=== PATIENT | female | born 1935 | race Caucasian/White ===

== ENCOUNTER → 2017-12-24 12:09 | Outpatient (CLI) | payer MEDICARE, OTHER, SELFPAY ==
[2017-12-24 12:38] LABS: Hematocrit 41.5 % (36-46); Hemoglobin 13.5 g/dL (12.0-16.0); Mean Corpuscular HGB Conc 32.7 % (30-36); Mean Corpuscular Hemoglobin 29.6 PG (26-34); Mean Corpuscular Volume 90.5 fL (80-100); Platelet Count 198 X10^3/uL (150-400); Red Blood Cell Count 4.58 X10^6/uL (4.0-5.2); Red Cell Distribution Width 14.7 % (11.6-14.8); White Blood Cell Count 7.3 X10^3/uL (4.5-11.0)
== END ==
PROVIDERS: PCP Family Medicine; Visit Provider Internal Medicine Pulmonary Disease
DX: M35.8 Other specified systemic involvement of connective tissue (principal); J84.89 Other specified interstitial pulmonary diseases
CPT/HCPCS: 36415; 85027

== ENCOUNTER → 2017-12-26 13:39 | Outpatient (CLI) | payer MEDICARE, OTHER, SELFPAY ==
--- NOTE | 2017-12-26 14:27 | DI.RAD.S_ITS ---
This blank DEXA report has been sent in error by the PACS system. The correct and complete report will be forthcoming in 1-2 days. Thank you for your patience and understanding. Dictated by: Lino Drake M.D. on 12/26/2017 at 15:17 Approved by: Lino Drake M.D. on 12/26/2017 at 15:18
== END ==
PROVIDERS: PCP Family Medicine; Visit Provider Family Medicine
DX: M85.88 Other specified disorders of bone density and structure, other site (principal); Z78.0 Asymptomatic menopausal state; E07.9 Disorder of thyroid, unspecified; M06.9 Rheumatoid arthritis, unspecified
CPT/HCPCS: 77080

== ENCOUNTER → 2018-01-29 10:28 | Outpatient (CLI) | payer MEDICARE, OTHER, SELFPAY ==
[2018-01-29 11:39] LABS: Hematocrit 41.2 % (36-46); Hemoglobin 13.7 g/dL (12.0-16.0); Mean Corpuscular HGB Conc 33.3 % (30-36); Mean Corpuscular Hemoglobin 30.1 PG (26-34); Mean Corpuscular Volume 90.2 fL (80-100); Platelet Count 189 X10^3/uL (150-400); Red Blood Cell Count 4.57 X10^6/uL (4.0-5.2); Red Cell Distribution Width 14.5 % (11.6-14.8); White Blood Cell Count 7.1 X10^3/uL (4.5-11.0)
[2018-01-29 13:17] LABS: TSH w/ Reflex to FT4 4.76 uIU/mL (0.47-4.68)
[2018-01-29 14:22] LABS: Free T4, Direct Thyroxine 1.44 ng/dL (0.78-2.19)
== END ==
PROVIDERS: Family Medicine; PCP Family Medicine; Visit Provider Internal Medicine Pulmonary Disease
DX: M35.8 Other specified systemic involvement of connective tissue (principal); J84.89 Other specified interstitial pulmonary diseases; E03.9 Hypothyroidism, unspecified
CPT/HCPCS: 36415; 84439; 84443; 85027

== ENCOUNTER → 2018-03-03 10:26 | Outpatient (CLI) | payer MEDICARE, OTHER, SELFPAY ==
[2018-03-03 11:07] LABS: Add Manual Diff / Slide Review NO; Basophils Percent Auto 0.3 % (0-2); Eosinophils Percent Auto 1.5 % (2-4); Hematocrit 40.4 % (36-46); Hemoglobin 13.5 g/dL (12.0-16.0); Lymphocytes Percent Auto 23.9 % (25-40); Mean Corpuscular HGB Conc 33.5 % (30-36); Mean Corpuscular Hemoglobin 29.8 PG (26-34); Mean Corpuscular Volume 89.1 fL (80-100); Monocytes Percent Auto 9.7 % (3-14); Neutrophils Absolute Auto 4400 /uL (3000-5900); Neutrophils Percent Auto 64.6 % (50-75); Platelet Count 186 X10^3/uL (150-400); Red Blood Cell Count 4.54 X10^6/uL (4.0-5.2); Red Cell Distribution Width 14.4 % (11.6-14.8); White Blood Cell Count 6.9 X10^3/uL (4.5-11.0)
[2018-03-03 12:11] LABS: TSH w/ Reflex to FT4 3.06 uIU/mL (0.47-4.68)
== END ==
PROVIDERS: Family Medicine; PCP Family Medicine; Visit Provider Internal Medicine Pulmonary Disease
DX: M35.8 Other specified systemic involvement of connective tissue (principal); E07.9 Disorder of thyroid, unspecified
CPT/HCPCS: 36415; 84443; 85025

== ENCOUNTER → 2018-03-27 11:10 | Outpatient (CLI) | payer MEDICARE, OTHER, SELFPAY ==
[2018-03-27 12:23] LABS: Hematocrit 41.7 % (36-46); Mean Corpuscular HGB Conc 33.5 % (30-36); Mean Corpuscular Hemoglobin 29.8 PG (26-34); Mean Corpuscular Volume 88.8 fL (80-100); Platelet Count 195 X10^3/uL (150-400); Red Cell Distribution Width 14.5 % (11.6-14.8); White Blood Cell Count 6.7 X10^3/uL (4.5-11.0)
== END ==
PROVIDERS: PCP Family Medicine; Visit Provider Internal Medicine Pulmonary Disease
DX: M35.8 Other specified systemic involvement of connective tissue (principal); J84.89 Other specified interstitial pulmonary diseases
CPT/HCPCS: 36415; 85027

== ENCOUNTER → 2018-04-24 14:46 | Outpatient (CLI) | payer MEDICARE, OTHER, SELFPAY ==
[2018-04-24 15:25] LABS: Hematocrit 42.9 % (36-46); Hemoglobin 13.8 g/dL (12.0-16.0); Mean Corpuscular HGB Conc 32.1 % (30-36); Mean Corpuscular Volume 90.4 fL (80-100); Platelet Count 191 X10^3/uL (150-400); Red Blood Cell Count 4.75 X10^6/uL (4.0-5.2); Red Cell Distribution Width 14.3 % (11.6-14.8); White Blood Cell Count 11.3 X10^3/uL (4.5-11.0)
== END ==
PROVIDERS: Family Provider Family Medicine; PCP Family Medicine; Visit Provider Internal Medicine Pulmonary Disease
DX: J84.89 Other specified interstitial pulmonary diseases (principal); M35.8 Other specified systemic involvement of connective tissue
CPT/HCPCS: 36415; 85027

== ENCOUNTER → 2018-05-28 10:22 | Outpatient (CLI) | payer MEDICARE, OTHER, SELFPAY ==
[2018-05-28 11:09] LABS: Hematocrit 43.3 % (36-46); Hemoglobin 14.3 g/dL (12.0-16.0); Mean Corpuscular Hemoglobin 29.8 PG (26-34); Mean Corpuscular Volume 90.2 fL (80-100); Platelet Count 195 X10^3/uL (150-400); Red Cell Distribution Width 14.9 % (11.6-14.8); White Blood Cell Count 7.4 X10^3/uL (4.5-11.0)
== END ==
PROVIDERS: Family Provider Family Medicine; PCP Family Medicine; Visit Provider Internal Medicine Pulmonary Disease
DX: M35.8 Other specified systemic involvement of connective tissue (principal); J84.89 Other specified interstitial pulmonary diseases
CPT/HCPCS: 36415; 85027

== ENCOUNTER 2018-06-27 09:31 | Observation (INO) | payer MEDICARE, OTHER, SELFPAY ==
[2018-06-27] VITALS (13 sets, daily range): BP systolic 120–162; BP diastolic 62–116; PULSE 53–78; RESP 15–19; TEMP 36.2–36.9; O2SAT 95–100; BMI 30.8
--- NOTE | 2018-06-27 | DI.CT.S_ITS ---
PROCEDURE: CT ANGIO HEAD AND NECK INDICATIONS: Right arm weakness TECHNIQUE: Pre-contrast 4.5 mm thick sections acquired from the foramen magnum to the vertex. After the administration of intravenous contrast, 1 mm thick sections acquired from the aortic arch through the [employer] [place]. Post-contrast 4.5 mm thick sections then re-acquired from the foramen magnum to the vertex. 3-dimensional pnqkzkt-edkrnwqzr-rfnxyouhdm (MIP) and/or volume rendering reformats were acquired of the central intracranial vasculature and neck separately. COMPARISON: [facility], US, THYROID, 09/13/2011, 9:41. [facility], CT, CT HEAD/BRAIN WO CON, 06/27/2018, 9:46. FINDINGS: Image quality: Excellent. BRAIN: CSF spaces: Ventricles are normal in size and shape. Basal cisterns are patent. No extra-axial fluid collections. Brain: No midline shift. No intracranial bleeds or masses. Old, small, lacunar infarct involving the right caudate head/anterior limb internal capsule is redemonstrated. Moderate, diffuse cerebral volume loss. Moderate to severe periventricular and subcortical white matter chronic microvascular ischemic changes. Mitchell-white matter interface appears intact. There is normal contrast enhancement of the dural sinuses. Skull and face: Calvarium and facial bones appear intact, without suspicious lesions. Orbits appear normal. Sinuses: Mucosal thickening is noted in the left maxillary sinus and the right maxillary sinus. The mastoids are clear. HEAD CT ANGIOGRAPHY: Anterior circulation: Intracranial internal carotid arteries are normal in flow. Atherosclerotic calcifications are noted in the cavernous and supraclinoid segments of the internal carotid arteries bilaterally. Atherosclerotic calcification causes mild multi-focal stenoses in the cavernous segments of the internal carotid arteries. Atherosclerotic calcification causes high-grade, short segment stenosis in the supraclinoid segment of the right internal carotid artery and moderate, short segment stenosis in the supraclinoid segment of the left internal carotid artery. The flow within the paired anterior cerebral arteries is normal and symmetric. The flow within the middle cerebral arteries is normal and symmetric. The anterior communicating artery is seen. No aneurysms are seen. Posterior circulation: Atherosclerotic calcification is noted in the V4 segment of the right vertebral artery which causes moderate multifocal stenoses. Flow within the posterior cerebral arteries is normal and symmetric. No aneurysms are seen. NECK CT ANGIOGRAPHY: Carotid system: The great vessels demonstrate a conventional anatomy as they arise from the aortic arch. The origins of the common carotid arteries appear patent. The common carotid arteries demonstrate normal caliber. Left common carotid artery takes a medial course projecting into the retropharyngeal space. Soft and calcified atherosclerotic plaque noted in the origins of the internal carotid arteries bilaterally which causes less than 50% stenosis of the vessels. Posterior circulation: Atherosclerotic calcification noted in the origin of the right internal carotid artery which causes mild stenosis. Atherosclerotic calcification noted in the origin of the left internal carotid artery which causes moderate stenosis. They join to form a normal appearing basilar artery. Soft tissues: Visualized neck soft tissues demonstrate no suspicious abnormalities. Severe, chronic interstitial changes noted in the lung apices. Multiple nodules noted in the thyroid gland which are not significantly changed compared to thyroid ultrasound obtained 09/13/2011. 1.4 cm enhancing mass is noted in the left parotid gland. Bones: No suspicious bony lesions. Spine degenerative disc disease and facet arthropathy. Visualized cervical spine appears normally aligned. IMPRESSION: 1. No acute intracranial disease process. 2. High-grade, atherosclerotic stenosis of the supraclinoid segment of the right internal carotid artery. 3. Moderate, atherosclerotic stenosis of the supraclinoid segment of the right internal carotid artery. 4. Less than 50% stenosis of the origins of the internal carotid arteries. 5. Moderate multifocal atherosclerotic stenoses involving the origin and V4 segment of the left vertebral artery. 6. Mild atherosclerotic stenosis involving the origin of the right vertebral artery. 7. Multinodular thyroid gland not significantly changed in appearance compared to ultrasound obtained 09/13/2011. 8. 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 Differential diagnosis includes benign etiologies such as pleomorphic adenoma or Warthin's tumor as well as malignancy including metastatic disease and mucoepidermoid carcinoma. Any quantitative measurements of stenosis were performed using NASCET criteria. Dictated by: Marcelina Beltrán MD, PhD on 06/27/2018 at 16:05 Approved by: Marcelina Beltrán MD, PhD on 06/27/2018 at 16:27
--- NOTE | 2018-06-27 09:40 | ED.NEUROSD ---
HPI - Neuro Symptoms/Deficit General Chief Complaint: Neuro Symptoms/Deficit Stated Complaint: weakness on rt side Time Seen by Provider: 06/27/18 09:38 Source: patient and family Mode of arrival: wheelchair Limitations: no limitations History of Present Illness HPI Narrative: 82-year-old female with history of AFib, coronary artery disease, pacer presents with stroke-like symptoms upon waking today. She says she went to bed at about 1130 p.m. and awoke this morning at 0830am feeling a bit off. She states she had trouble getting around and when attempting to use her right arm did not seem to work when trying to brush her hair. Furthermore she stumbled when ambulating, but denies feeling dizzy. She denies any vision or speech trouble. She denies any recent injury, fever or chills. She went to bed feeling at her baseline. She has had a TIA in the past. She is outside of any tPA window, BEFAST is positive, LAMS is 2. No stroke activation indicated. Related Data Home Medications Medication Instructions Recorded Confirmed amlodipine 5 mg tablet 5 mg PO DAILY 12/13/17 06/27/18 atorvastatin 20 mg tablet 20 mg PO DAILY 12/13/17 06/27/18 carvedilol 12.5 mg tablet 12.5 mg PO BID 12/13/17 06/27/18 furosemide 20 mg tablet 20 mg PO DAILY 12/13/17 06/27/18 gabapentin 300 mg capsule 300 mg PO DAILY cap 12/13/17 06/27/18 losartan 50 mg tablet 50 mg PO DAILY 12/13/17 06/27/18 mycophenolate mofetil 500 mg tablet 1,000 mg PO BID 12/13/17 06/27/18 nitroglycerin 0.4 mg sublingual 0.4 mg SL Q5-15M PRN 12/13/17 06/27/18 tablet warfarin 4 mg tablet 4 mg PO DAILY 12/13/17 06/27/18 Fish Oil 1 cap PO CONT 06/27/18 06/27/18 Vitamin C 1 tab PO DAILY 06/27/18 06/27/18 cholecalciferol (vitamin D3) 2,000 unit PO DAILY 06/27/18 06/27/18 [Vitamin D3] levothyroxine [Synthroid] 06/27/18 levothyroxine [Synthroid] 50 mcg PO DAILY 06/27/18 06/27/18 multivitamin 1 tab PO DAILY 06/27/18 06/27/18 mycophenolate mofetil [CellCept] 1,000 mg PO BID 06/27/18 06/27/18 potassium chloride 20 meq PO DAILY 06/27/18 06/27/18 prednisone 2.5 mg PO DAILY 06/27/18 06/27/18 Allergies Allergy/AdvReac Type Severity Reaction Status Date / Time adhesive Allergy Mild RASH/BLISTERS Verified 03/14/18 14:57 PAPER/SIKL TAPE [place] Review of Systems Review of Systems All systems reviewed & are unremarkable except as noted in HPI and below Constitutional Denies chills, Denies fever(s), Denies lethargy and Reports weakness Eyes Denies change in vision, Denies eye discharge, Denies irritation and Denies loss of vision ENT Ears, Nose, Mouth, and Throat: Denies change in voice, Denies neck pain, Reports disequilibrium and Denies sore throat Cardiovascular Denies chest pain, Denies irregular heart rhythm, Denies lightheadedness, Denies palpitations, Denies dyspnea, Denies dyspnea on exertion and Denies orthopnea Respiratory Denies cough, Denies dyspnea, Denies dyspnea on exertion and Denies wheezing Gastrointestinal Gastrointestinal: Denies abdominal pain, Denies change in bowel habits, Denies diarrhea, Denies nausea and Denies vomiting Genitourinary Denies hematuria, Denies flank pain, Denies urinary incontinence and Denies urinary urgency Musculoskeletal Denies neck pain Integumentary/Breasts Denies pruritus, Denies erythema, Denies rash and Denies wounds Neurologic Denies confusion, Reports lack of coordination, Reports focal weakness, Denies loss of vision, Reports disequilibrium and Reports weakness Psychiatric Denies anxiety, Denies confusion, Denies depression, Denies homicidal ideation and Denies suicidal ideation Endocrine Denies palpitations Hematologic/Lymphatic Denies easy bruising Allergic/Immunologic Denies wheezing [facility] Medical History 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) CAD (coronary artery disease) (Chronic) TIA (transient ischemic attack) (Resolved) Atrial fibrillation (Chronic) Interstitial lung disease (Chronic) Melanoma (Resolved) Surgical History H/O: section (Resolved) Hx of CABG (Resolved) S/P appendectomy (Resolved) S/P hysterectomy (Resolved) S/P knee replacement (Resolved) Family History: Reviewed 06/27/18 by Nataly Wilson DO Social History marital status: number of children: 2 household members: spouse lives independently: Yes education level: college occupational status: other (retired) Smoking Status: Never smoker alcohol intake: current substance use type: does not use Exam Narrative Exam Narrative: 82-year-old female, pleasant, in mild distress, anxious Initial Vital Signs Initial Vital Signs: Vital Signs Temperature 98.2 F 06/27/18 09:35 Pulse Rate 78 06/27/18 09:35 Respiratory Rate 18 06/27/18 09:35 Blood Pressure 148/87 H 06/27/18 09:35 Pulse Oximetry 100 06/27/18 09:35 Const General: cooperative, well developed, in distress and anxious Nutritional Appearance: well nourished Orientation: alert, awake, oriented x3 and not confused HENMT Head: normocephalic and atraumatic Ears: external ears normal and TM's normal bilaterally Nose: external nose normal and No nasal discharge Face and sinus: sinuses nontender, face symmetric, no sinus tenderness and No dry mucous membranes Mouth: oral mucosae normal and moist mucous membranes Teeth and gingiva: dentition normal Throat: tonsils normal and uvula midline Eyes General: appearance normal, both eyes and all related structures Eyelids: eyelids normal Conjunctivae: conjunctivae normal Sclera: sclerae normal Pupils: PERRL EOM: EOM intact bilaterally Neck Neck: normal visual inspection, trachea midline, No lymphadenopathy, No midline deformity and No JVD Lymphatic: No lymphedema Resp Effort & Inspection: normal respiratory effort, able to speak in complete sentences, no respiratory distress and no use of accessory muscles Auscultation: clear to auscultation bilaterally, no rales, no rhonchi and no wheezes GI Inspection: non-distended Palpation: soft, no hepatosplenomegaly, No guarding, No pulsatile mass and No tender Auscultation: normal bowel sounds Back/Spine/Pelvis Back: No CVA tenderness Cervical Spine: cervical ROM normal and No pain with cervical ROM Thoracic/Lumbar Spine: thoracic and lumbar spine normal to inspection Neuro General: alert and oriented x3 Cranial Nerves: CN's II-XI intact bilaterally Cognition: normal cognition Speech: speech normal Extrem General: full ROM, no clubbing, cyanosis or edema, no pedal edema and no calf tenderness Psych Appearance: well kempt Mental Status: mental status grossly normal Attitude: cooperative Thought Content: normal and suicidality Judgment: judgment good Scores NIH Stroke Scale Level of Conciousness: Alert, keenly responsive Ask month/age: Answers both questions correctly. Open/close eyes, close hand: Performs both tasks correctly Best gaze horizontal: Normal Visual banks: No visual loss Facial palsy: Normal symetrical movement Left arm drift: No drift for full 10 sec Right arm drift: Drifts down, not to bed Left leg drift: No drift for full 10 sec Right leg drift: No drift for full 10 sec Limb ataxia: Absent Sensory on face/arms/legs: Normal, no sensory loss Best language: No aphasia, normal Dysarthria: Normal Extinction or inattention: No abnormality Total NIH Stroke scale score: 1 Course Orders Ordered: ED Orders 06/27/18 13:06 Education, smoking cessation ONGOING 06/27/18 13:11 Consult to Occupational Therapy Evaluate & Treat Consult to Physical Therapy Evaluate & Treat 06/27/18 16:15 Urine Drug Screen, Rapid Stat 06/28/18 05:00 Prothrombin Time INR DAILY 06/29/18 05:00 Prothrombin Time INR DAILY 06/30/18 05:00 Prothrombin Time INR DAILY Acetaminophen (Tylenol) 650 mg PO Q6HR PRN PRN Reason: As Needed for Fever/Mild Pain Amlodipine Besylate (Norvasc) 5 mg PO DAILY [facility] Atorvastatin Calcium (Lipitor) 20 mg PO DAILY [facility] Calcium Carbonate (Tums) 1,000 mg PO Q4HR PRN PRN Reason: Dyspepsia Carvedilol (Coreg) 12.5 mg PO BID [facility] Docusate Sodium (Colace) 100 mg PO BID PRN PRN Reason: Constipation Furosemide (Lasix) 20 mg PO DAILY [facility] Gabapentin (Neurontin) 300 mg PO DAILY [facility] Sodium Chloride (Normal Saline 0.9%) 1,000 mls @ 150 mls/hr IV CONT [facility] Last Infusion: 06/27/18 12:49 Dose: 150 mls/hr Infusion: 06/27/18 12:48 Dose: 150 mls/hr Admin: 06/27/18 10:16 Dose: 150 mls/hr Levothyroxine Sodium (Synthroid) 50 mcg PO 0600 [facility] Losartan Potassium (Cozaar) 50 mg PO DAILY [facility] Mycophenolate Mofetil (Cellcept) 1,000 mg PO BID [facility] Nitroglycerin (Nitrostat) 0.4 mg SL Q5M PRN PRN Reason: Chest Pain Ondansetron HCl (Zofran Odt) 4 mg PO Q8HR PRN PRN Reason: Nausea And Vomiting Potassium Chloride (Klor-Con M20) 20 meq PO DAILY [facility] Prednisone (Deltasone) 2.5 mg PO DAILY [facility] Discontinued Medications Aspirin (Aspirin Chew) 324 mg PO NOW ONE Stop: 06/27/18 11:16 Last Admin: 06/27/18 12:06 Dose: 324 mg Consultations Consultation #1: Dr. Holly happy to accept on behalf of Dr. Wilson Vital Signs - 8 hr 06/27/18 13:06 06/27/18 16:00 06/27/18 16:45 Temperature 97.2 F L 97.7 F Pulse Rate 70 63 Respiratory Rate 16 16 Blood Pressure 143/82 H 148/74 H Pulse Oximetry 98 96 97 06/27/18 19:43 Temperature Pulse Rate Respiratory Rate Blood Pressure Pulse Oximetry 96 MDM - Neuro Symptoms/Deficit Medical Records Attestation: I reviewed the patient's medical records. Lab Data Attestation: I reviewed the patient's lab results. Result diagrams: 06/27/18 09:50 06/27/18 09:50 Lab Results 06/27/18 06/27/18 06/27/18 Range/Units 09:50 09:50 09:50 WBC 6.2 (4.5-11.0) X10^3/uL RBC 4.84 (4.0-5.2) X10^6/uL Hgb 14.4 (12.0-16.0) g/dL Hct 43.7 (36-46) % MCV 90.1 (80-100) fL MCH 29.8 (26-34) PG MCHC 33.0 (30-36) % RDW 14.4 (11.6-14.8) % Plt Count 173 (150-400) X10^3/uL Neut % (Auto) 66.0 (50-75) % Lymph % (Auto) 25.5 (25-40) % [place] % (Auto) 6.1 (3-14) % Eos % (Auto) 1.5 L (2-4) % Baso % (Auto) 0.9 (0-2) % Neut # (Auto) 4100 (6381-9051) /uL PT 43.8 H (10.1-12.7) SECONDS INR 3.7 H (0.9-1.3) APTT 41 H (26.4-36.2) SECONDS Sodium 144 (137-145) mmol/L Potassium 4.0 (3.4-5.1) mmol/L Chloride 107 (98-107) mmol/L Carbon Dioxide 26 (22-32) mmol/L BUN 13 (7-17) mg/dL Creatinine 0.80 (0.52-1.04) mg/dL Estimated GFR > 60.0 (>60) mL/min BUN/Creatinine Ratio 16.3 (6-22) Glucose 102 (80-110) mg/dL Calcium 8.9 (8.4-10.2) mg/dL Urine Opiates Screen (Negative) Ur Oxycodone Screen (Negative) Urine Methadone Screen (Negative) Ur Barbiturates Screen (Negative) U Tricyclic Antidepress (Negative) Ur Phencyclidine Scrn (Negative) Ur Amphetamines Screen (Negative) U Methamphetamines Scrn (Negative) Ur MDMA Scrn (Ecstasy) (Negative) U Benzodiazepines Scrn (Negative) Urine Cocaine Screen (Negative) U Marijuana (THC) Screen (Negative) 06/27/18 Range/Units 16:15 WBC (4.5-11.0) X10^3/uL RBC (4.0-5.2) X10^6/uL Hgb (12.0-16.0) g/dL Hct (36-46) % MCV (80-100) fL MCH (26-34) PG MCHC (30-36) % RDW (11.6-14.8) % Plt Count (150-400) X10^3/uL Neut % (Auto) (50-75) % Lymph % (Auto) (25-40) % [place] % (Auto) (3-14) % Eos % (Auto) (2-4) % Baso % (Auto) (0-2) % Neut # (Auto) (5811-6654) /uL PT (10.1-12.7) SECONDS INR (0.9-1.3) APTT (26.4-36.2) SECONDS Sodium (137-145) mmol/L Potassium (3.4-5.1) mmol/L Chloride (98-107) mmol/L Carbon Dioxide (22-32) mmol/L BUN (7-17) mg/dL Creatinine (0.52-1.04) mg/dL Estimated GFR (>60) mL/min BUN/Creatinine Ratio (6-22) Glucose (80-110) mg/dL Calcium (8.4-10.2) mg/dL Urine Opiates Screen Negative (Negative) Ur Oxycodone Screen Negative (Negative) Urine Methadone Screen Negative (Negative) Ur Barbiturates Screen Negative (Negative) U Tricyclic Antidepress Negative (Negative) Ur Phencyclidine Scrn Negative (Negative) Ur Amphetamines Screen Negative (Negative) U Methamphetamines Scrn Negative (Negative) Ur MDMA Scrn (Ecstasy) Negative (Negative) U Benzodiazepines Scrn Negative (Negative) Urine Cocaine Screen Negative (Negative) U Marijuana (THC) Screen Negative (Negative) Point of Care Testing Glucose POC 86 Urine Dip Bedside Urine Glucose Negative Bedside Urine Bilirubin - Negative Bedside Urine Ketone - Negative Urine Specific [place] 1.015 Bedside Urine Occult Blood - Negative Bedside Urine pH 7.0 Bedside Urine Protein +/- 15 Bedside Urine Urobilinogen - Negative Bedside Urine Nitrite - Negative Bedside Urine Leukocytes - Negative Esterase Imaging Data CT scan - head: Radiologist's impression: Sari Mosquera - Patient Chart Chart Viewer Diagnostics DATE TYPE STATUS AUTHOR Hx 06/27/18 09:39 Mala Sosa 06/27/18 00:00 Marcelina Beltrán 12/26/17 14:27 Rigoberto Drake 12/26/17 08:00 DXA Bone Densitometry Sari Mosquera 82, F0 1935 ADM IN, AC 210 -1 154.94cm 74kg BSA: 1.73m? BMI: 30.8kg/m? Search Chart NF - Not included in interaction checking adhesive RASH/BLISTERS PAPER/SIKL TAPE OK ONSET Today 19:43 [facility] [address] [place] [address] CT Scan Report Signed Patient: Sari Mosquera [facility]#: [id number] : [id number]:[id number] Age/Sex: 82 / FDate of Service: 06/27/18 Loc: ED Accession Number: [id number] Procedure: CT head/brain wo con Ordering Provider: Stevie Hermosillo D.O. PROCEDURE: CT HEAD/BRAIN WO CON INDICATIONS: stroke symptoms TECHNIQUE: Noncontrast 4.5 mm thick angled axial sections acquired from the foramen magnum to the vertex, with coronal and sagittal reformats. For radiation dose reduction, the following was used: automated exposure control, adjustment of mA and/or kV according to patient size. COMPARISON: [facility], CT, HEAD WITHOUT CONTRAST, 11/27/2007, 22:28. [facility], CT, HEAD WITHOUT CONTRAST, 06/26/2009, 5:00. FINDINGS: Image quality: Excellent. CSF spaces: Basal cisterns are patent. No extra-axial fluid collections. The ventricles are symmetric in size and shape. Brain: There is an old lacunar infarct in the right caudate. No intracranial bleeds or masses. There is moderate cerebral volume loss for age, with resultant ventricular and sulcal prominence. There are moderate to severe periventricular and deep white matter chronic small vessel ischemic changes. There is intracranial internal carotid artery atherosclerosis. Skull and face: Calvarium and visualized facial bones appear intact, without suspicious lesions. Sinuses: Mastoids are clear. There is mucous retention cyst in the left maxillary sinus. IMPRESSION: 1. No acute intracranial abnormalities. 2. Cerebral volume loss and chronic microvascular ischemic changes. 3. 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 4. Left maxillary sinus mucous retention cyst. Dictated by: Lesley Sosa M.D. on 06/27/2018 at 10:05 Approved by: Lesley Sosa M.D. on 06/27/2018 at 10:09 [facility] Narrative Medical decision making narrative: 82-year-old female presents with complaint concerning for stroke. She falls outside of tPA window and findings are not consistent with large vessel occlusion to prompt code IR Discharge Plan Departure Patient Disposition: Admitted As Inpatient Clinical Impression: Stroke Discharge Date/Time: 06/27/18 12:34 Interventions: ED Discharge Assessment Last Done: 06/27/18 12:34 Admit Date/Time: 06/27/18 11:46 Admit Provider: Nataly Wilson
[2018-06-27 09:58] LABS: Add Manual Diff / Slide Review NO; Basophils Percent Auto 0.9 % (0-2); Eosinophils Percent Auto 1.5 % (2-4); Hematocrit 43.7 % (36-46); Hemoglobin 14.4 g/dL (12.0-16.0); Lymphocytes Percent Auto 25.5 % (25-40); Mean Corpuscular Hemoglobin 29.8 PG (26-34); Mean Corpuscular Volume 90.1 fL (80-100); Monocytes Percent Auto 6.1 % (3-14); Neutrophils Absolute Auto 4100 /uL (1500-7000); Platelet Count 173 X10^3/uL (150-400); Red Blood Cell Count 4.84 X10^6/uL (4.0-5.2); Red Cell Distribution Width 14.4 % (11.6-14.8); White Blood Cell Count 6.2 X10^3/uL (4.5-11.0)
[2018-06-27 10:05] LABS: INR 3.7 (0.9-1.3); Prothrombin Time 43.8 SECONDS (10.1-12.7)
[2018-06-27 10:07] LABS: PTT Partial Thromboplastin Tim 41 SECONDS (26.4-36.2)
[2018-06-27 10:09] LABS: BUN Creatinine Ratio 16.3 (6-22); Blood Urea Nitrogen 13 mg/dL (7-17); Calcium 8.9 mg/dL (8.4-10.2); Carbon Dioxide 26 mmol/L (22-32); Chloride 107 mmol/L (98-107); Estimated Glomerular Filt Rate > 60.0 mL/min (>60); Glucose 102 mg/dL (80-110); HEMOLYSIS 20 (0-50); Sodium 144 mmol/L (137-145)
[2018-06-27] MEDS: SODIUM CHLORIDE 0.9% 1,000 ML 150 ML IV ×2 (10:16→20:43)
[2018-06-27] MEDS: ASPIRIN 81 MG TAB 324 MG PO (12:06)
--- NOTE | 2018-06-27 13:14 | P.HP_ITS ---
History of Present Illness Date Patient Seen: 06/27/18 Time Patient Seen: 12:45 Chief complaint: weakness on rt side Narrative: 82-year-old female with oxygen-dependent interstitial lung disease, CAD status post CABG, history of TIA, atrial fibrillation with pacemaker on chronic anticoagulation with complaints of right arm weakness and unsteady gait upon waking this morning. She went to bed in her usual state of health last night but upon waking this morning she felt drunk and was bumping into melissa when ambulating to the bathroom. She went to brush her hair and had a very difficult time getting the brush up to her head as well as numbness in her hand. No associated headaches, vision changes or difficulty with speech. She knew something was wrong so family brought her to the emergency department. At the time of this interview the weakness and numbness was slightly improved though still present. Patient reported improvement on her feet though still not at baseline. In the emergency department CT was negative for hemorrhagic stroke. Labs were unremarkable. She was in atrial fibrillation. She was outside the window for tPA so will be admitted for further evaluation. She was in atrial fibrillation in the emergency department though rate controlled. Patient History Medical History 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) CAD (coronary artery disease) (Chronic) TIA (transient ischemic attack) (Resolved) Atrial fibrillation (Chronic) Interstitial lung disease (Chronic) Melanoma (Resolved) Surgical History H/O: section (Resolved) Hx of CABG (Resolved) S/P appendectomy (Resolved) S/P hysterectomy (Resolved) S/P knee replacement (Resolved) Family & Social History Family History: Reviewed 06/27/18 by Nataly Wilson DO Social History: household members spouse lives independently Yes Safety & Behavioral: Feels Safe in Current Yes Environment Tobacco & Substance use: Smoking Status Never smoker alcohol intake current alcohol intake frequency holiday/special occasion Substance Use Type does not use Meds Home Medications Medication Instructions Recorded Confirmed Type amlodipine 5 mg tablet 5 mg PO DAILY 12/13/17 06/27/18 History atorvastatin 20 mg tablet 20 mg PO DAILY 12/13/17 06/27/18 History carvedilol 12.5 mg tablet 12.5 mg PO BID 12/13/17 06/27/18 History furosemide 20 mg tablet 20 mg PO DAILY 12/13/17 06/27/18 History gabapentin 300 mg capsule 300 mg PO DAILY cap 12/13/17 06/27/18 History losartan 50 mg tablet 50 mg PO DAILY 12/13/17 06/27/18 History mycophenolate mofetil 500 mg tablet 1,000 mg PO BID 12/13/17 06/27/18 History nitroglycerin 0.4 mg sublingual 0.4 mg SL Q5-15M PRN 12/13/17 06/27/18 History tablet warfarin 4 mg tablet 4 mg PO DAILY 12/13/17 06/27/18 History Fish Oil 1 cap PO CONT 06/27/18 06/27/18 History Vitamin C 1 tab PO DAILY 06/27/18 06/27/18 History cholecalciferol (vitamin D3) 2,000 unit PO DAILY 06/27/18 06/27/18 History [Vitamin D3] levothyroxine [Synthroid] 06/27/18 History levothyroxine [Synthroid] 50 mcg PO DAILY 06/27/18 06/27/18 History multivitamin 1 tab PO DAILY 06/27/18 06/27/18 History mycophenolate mofetil [CellCept] 1,000 mg PO BID 06/27/18 06/27/18 History potassium chloride 20 meq PO DAILY 06/27/18 06/27/18 History prednisone 2.5 mg PO DAILY 06/27/18 06/27/18 History Allergies Allergy/AdvReac Type Severity Reaction Status Date / Time adhesive Allergy Mild RASH/BLISTERS Verified 03/14/18 14:57 PAPER/SIKL TAPE OK Review of Systems Constitutional Constitutional: Denies fatigue, Denies fever(s), Denies frequent falls and Denies headache(s) Eyes Eyes: Denies blurry vision, Denies change in vision and Denies loss of vision ENT Ears, Nose, Mouth, and Throat: No headache(s) Cardiovascular Cardiovascular: Denies chest pain, Denies foot swelling and Denies shortness of breath Respiratory Respiratory: Denies cough, Denies dyspnea and Denies wheezing Gastrointestinal Gastrointestinal: Denies abdominal pain, Denies change in bowel habits and Denies vomiting Musculoskeletal Musculoskeletal: Reports abnormal gait and Reports numbness Neurologic Neurologic: Reports abnormal gait, Denies behavioral changes, Denies frequent falls, Denies headache(s), Denies lack of coordination, Reports focal weakness, Denies loss of vision and Reports numbness Psychiatric Psychiatric: Denies behavioral changes Endocrine Endocrine: Denies fatigue Allergic/Immunologic Allergic/Immunologic: Denies wheezing Exam Vital Signs (past 8 hours): - 06/27/18 09:35 06/27/18 10:00 06/27/18 10:30 Temperature 98.2 F Pulse Rate 78 70 66 Respiratory Rate 18 19 16 Blood Pressure 148/87 H Blood Pressure [Left Arm] 162/71 H 144/73 H Pulse Oximetry 100 98 98 06/27/18 11:00 06/27/18 11:30 06/27/18 12:00 Temperature Pulse Rate 67 64 67 Respiratory Rate 18 16 16 Blood Pressure Blood Pressure [Left Arm] 151/89 H 143/116 H 145/70 H Pulse Oximetry 99 97 96 Oxygen Delivery Method Nasal Cannula Narrative Exam Narrative: General appearance: Well-appearing older woman. Alert, appears stated age, cooperative. Head: Normocephalic, atraumatic, without obvious abnormality. Eyes: Conjunctivae/corneas clear. EOM's intact. Nose: Nasal cannula in place. Nares normal. Mucosa pink and moist. Throat: Moist mucosa. Neck: No adenopathy, supple, symmetric, trachea midline. Lungs: Clear to auscultation bilaterally, no wheezes or crackles. Heart: Irregularly irregular. Abdomen: Soft, non-tender; bowel sounds normal; no masses, no organomegaly. Extremities: Extremities normal, atraumatic, no edema. Neurologic: Alert and oriented x3. CN II-XII intact. 5/5 strength left upper extremity. 3/5 strength with flexion/extension of the right arm. 4/5 travel consultant strength on the right. Sensation intact the patient reports altered sensation of the right thumb and first finger. Normal heel-kingsley testing. Normal rapid alternating movements of hands. [id number] testing was slightly less coordinated on the right compared to the left. No pronator drift. Slow though steady gait when patient ambulated to the restroom with a one-person standby assist. Psych: Alert and oriented to person, time, and place. Mood and affect appropriately modulated. Judgment and insight regarding health issues, within normal limits. Recent and remote memory intact. Objective Imaging CT scan - head: Radiologist's impression: IMPRESSION: 1. No acute intracranial abnormalities. 2. Cerebral volume loss and chronic microvascular ischemic changes. 3. 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 4. Left maxillary sinus mucous retention cyst. Dictated by: Lesley Sosa M.D. on 06/27/2018 at 10:05 Approved by: Lesley Sosa M.D. on 06/27/2018 at 10:09 Labs Result Diagrams: 06/27/18 09:50 06/27/18 09:50 Labs: Laboratory Results - last 24 hr 06/27/18 06/27/18 06/27/18 09:50 09:50 09:50 WBC 6.2 RBC 4.84 Hgb 14.4 Hct 43.7 MCV 90.1 MCH 29.8 MCHC 33.0 RDW 14.4 Plt Count 173 Neut % (Auto) 66.0 Lymph % (Auto) 25.5 [place] % (Auto) 6.1 Eos % (Auto) 1.5 L Baso % (Auto) 0.9 Neut # (Auto) 4100 PT 43.8 H INR 3.7 H APTT 41 H Sodium 144 Potassium 4.0 Chloride 107 Carbon Dioxide 26 BUN 13 Creatinine 0.80 Estimated GFR > 60.0 BUN/Creatinine Ratio 16.3 Glucose 102 Calcium 8.9 Assessment & Plan (1) Stroke: Qualifiers: CVA mechanism: unspecified Laterality of affected vessel: Precerebral and cerebral artery: Qualified Code(s): I63.9 - Cerebral infarction, unspecified Current visit: Yes Status: Acute (2) Atrial fibrillation: Current visit: No Status: Chronic (3) CAD (coronary artery disease): Problem details: s/p CABG, [facility] Current visit: No Status: Chronic (4) Interstitial lung disease: Current visit: No Status: Chronic (5) Supplemental oxygen dependent: Current visit: No Status: Chronic (6) Pacemaker: Current visit: No Status: Chronic (7) Supratherapeutic INR: Current visit: Yes Status: Acute (8) Essential hypertension: Current visit: Yes Status: Chronic Plan: Assessment/Plan Narrative: 82-year-old female with CAD s/p CABG, atrial fibrillation with pacemaker on warfarin, history of TA, interstitial lung disease on 2 liters of oxygen now with acute CVA versus TIA. Fortunately symptoms are resolving though still present. CVA/TIA - CTA head and neck, unable to obtain MRI due to pacemaker - PT and OT evaluations - Monitor on telemetry Atrial fibrillation - unclear if she has chronic atrial fibrillation the patient believes she is in atrial fibrillation most of the time, fortunately she is anticoagulated and rate controlled - hold warfarin today due to supratherapeutic INR - continue carvedilol CAD - continue atorvastatin Hypertension - continue amlodipine Interstitial lung disease - continue mycophenolate and prednisone - on 2 liters supplemental oxygen at baseline DVT prophylaxis: Supratherapeutic on warfarin Diet: Cardiac diet Code status: Full code. Discussed with patient. POLST updated and placed in chart. Disposition: Anticipate discharge home tomorrow pending results of CTA, PT and OT evaluations.
[2018-06-27 16:29] LABS: Urine Amphetamines Negative (Negative); Urine Barbiturates Negative (Negative); Urine Benzodiazepines Negative (Negative); Urine Cocaine Negative (Negative); Urine MDMA Negative (Negative); Urine Methadone Negative (Negative); Urine Methamphetamines Negative (Negative); Urine Morphine/Opi cutoff 2000 Negative (Negative); Urine Oxycodone Negative (Negative); Urine Phencyclidine Negative (Negative); Urine Tetrahydrocannabinol Negative (Negative); Urine Tricyclic Antidepressant Negative (Negative)
[2018-06-27] MEDS: MYCOPHENOLATE MOFETIL 500 MG TABLET 1000 MG PO (20:40)
[2018-06-27] MEDS: CARVEDILOL 12.5 MG TABLET PO (20:40)
[2018-06-28 00:29] VITALS: O2SAT 97
[2018-06-28 03:00] VITALS: BP 132/70; PULSE 58; RESP 19; TEMP 36.6; O2SAT 96
[2018-06-28] MEDS: SODIUM CHLORIDE 0.9% 1,000 ML 150 ML IV (03:51)
[2018-06-28] MEDS: LEVOTHYROXINE 50 MCG TABLET PO (06:03)
[2018-06-28 06:31] LABS: INR 3.4 (0.9-1.3); Prothrombin Time 39.5 SECONDS (10.1-12.7)
[2018-06-28 08:00] VITALS: BP 138/72; PULSE 69; RESP 16; TEMP 36.4; O2SAT 98
[2018-06-28 08:12] VITALS: O2SAT 96
[2018-06-28] MEDS: FUROSEMIDE 20 MG TABLET PO (09:07)
[2018-06-28] MEDS: LOSARTAN 50 MG TABLET PO (09:07)
[2018-06-28] MEDS: ATORVASTATIN 20 MG TABLET PO (09:07)
[2018-06-28] MEDS: predniSONE 2.5 MG TABLET PO (09:07)
[2018-06-28] MEDS: MYCOPHENOLATE MOFETIL 500 MG TABLET 1000 MG PO (09:08)
[2018-06-28] MEDS: CARVEDILOL 12.5 MG TABLET PO (09:08)
[2018-06-28] MEDS: POTASSIUM CHLORIDE 20 MEQ TAB PO (09:08)
--- NOTE | 2018-06-28 09:12 | PT.IIE ---
Current Diagnoses Essential (primary) hypertension (06/27/18) Atherosclerotic heart disease of [place] coronary artery without angina pectoris (06/27/18) Unspecified atrial fibrillation (06/27/18) Cerebral infarction, unspecified (06/27/18) Interstitial pulmonary disease, unspecified (06/27/18) Abnormal coagulation profile (06/27/18) Presence of cardiac pacemaker (06/27/18) Dependence on supplemental oxygen (06/27/18) Surgical History (Last Reviewed 06/27/18 @ 17:05 by Nataly Wilson DO) H/O: section (Resolved) Hx of CABG (Resolved) S/P appendectomy (Resolved) S/P hysterectomy (Resolved) S/P knee replacement (Resolved) Medical History (Last Reviewed 06/27/18 @ 17:05 by Nataly Wilson DO) 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) Atrial fibrillation (Chronic) CAD (coronary artery disease) (Chronic) Interstitial lung disease (Chronic) Melanoma (Resolved) TIA (transient ischemic attack) (Resolved) Physical Therapy Inpatient Evaluation/Re-Eval M1 PT/OT-IP Prior Functional Status Start: 06/28/18 12:31 Freq: NEEDED Status: Active Protocol: Document 06/28/18 09:12 AB (Rec: 06/28/18 12:56 AB [id number]) Medical Review Prior Functional Status Medical History Reviewed Yes Communication able to make needs known Mobility and Gait stated that she is independent with all mobilities and ambulation without AD Social History Household Members spouse Living Arrangements House Number of Floors (Floors) 3 or More Floors Number of Stairs To Enter/Railing? has 2 steps to enter with R rail ascending; pt plans to stay on main level of the house has 13 steps with bilateral rails to get to bedroom level has steps down to basement( laundry area) but daughter stated that pt does not have to go there at this time Home Environment High Toilet Tub/Shower Home Equipment Front Wheel Walker Shower Seat with Backrest Grab Bars In Shower Employment Status Retired M2 PT-IP Current Condition Start: 06/28/18 12:31 Freq: NEEDED Status: Active Protocol: Document 06/28/18 09:12 AB (Rec: 06/28/18 12:56 AB [id number]) Physical Therapy Current Condition Current Condition Evaluation Date 06/28/18 Treatment Diagnosis CVA; difficulties in walking Onset Date 06/27/18 Precautions Other Precautions O2 sat M3 PT-IP Subjective Start: 06/28/18 12:31 Freq: NEEDED Status: Active Protocol: Document 06/28/18 09:12 AB (Rec: 06/28/18 12:56 AB [id number]) Subjective Physical Therapy Visit Type Type Initial Evaluation Visit Start Time 09:12 Visit Stop Time 10:08 Total Visit Minutes 47 Notes pt seen for split visit Number of DOCTOR OF CHIROPRACTIC Visits 0 Physical Therapy Visit Comments Patient Comments pt c/o tingling/numbness on R fingers Patient Goals to go home M4 PT-IP Mobility and Gait Start: 06/28/18 12:31 Freq: NEEDED Status: Active Protocol: Document 06/28/18 09:12 AB (Rec: 06/28/18 12:56 AB [id number]) PT-Bed Mobility Assessment Supine to Sit Supine to Sit Independent Sit to Supine Sit to Supine Independent PT-Transfer Assessment Sit to and From Stand Sit to and from Stand Standby Assistance Equipment Transfer Assistive Device Gait Belt Orthotic/Prosthetic Devices or Brace: No Transfers Transfer Destination Toilet Transfer Technique pt ambulated to the toilet without AD Transfer Ability Level of Assist Contact Guard Assistance Comments Mobility Comments pt ambulated from bed to toilet without AD ~ 12 ft requiring CGA. pt presents with unsteady gait and pt tends to hold on to melissa/ counter for support. pt ambulated from the toilet towards the sink CGA and was able to maintain standing balance SBA while completing handwashing. pt ambulated to the chair without AD CGA. assessed safety with use of FWW.(pls refer to ambulation section) Gait Assessment Gait Gait Assistance Required: Standby Assistance Distance (Feet) 200 Able to Maintain Weight Bearing Status Yes During Gait Assistive Devices Assistive Device Gait Belt Front Wheeled Walker Orthotic/Prosthetic Devices or Brace: No Factors Limiting Gait Function Factors Limiting Gait Function Decreased Activity Tolerance Decreased Strength Poor Balance Comments Gait Comments pt ambulated in hallway using FWW 200 ft SBA. recommended use of FWW upon d/c for safety . pt and daughter agreed. Stair Climbing Assessment Evaluation Level of Assist On Stairs Standby Assistance 1 Person Assistance Devices Stair Climbing Assistive Devices Right Railing Technique/Endurance Stair Climbing Direction Ascend and Descend Stair Climbing Technique Step to Step Number of Steps Climbed 3 Query Text: Stair Climbing Set # Repetitions (reps) 2 PT-Balance Assessment Sitting Balance and Reactions Static Sitting Balance Ability Good Dynamic Sitting Balance Ability Good Standing Balance and Reactions Static Standing Balance Ability Fair Dynamic Standing Balance Ability Poor Device Used without AD M5 PT-IP Objective Assessments Start: 06/28/18 12:31 Freq: NEEDED Status: Active Protocol: Document 06/28/18 09:12 AB (Rec: 06/28/18 12:56 AB [id number]) Orientation Orientation/Cognition Level of Alertness Alert Orientation Name Age Birthday Month Date Year Day of Week Place Situation Memory Description No Deficits Noted Gross Range of Motion Lower Extremity ROM Assessment Within Functional Limits Strength Lower Extremity Strength Assessment Bilaterally Impaired Hip 4-/5 Knee 4-/5 Sensation Assessment Sensation Gross Sensation Right UE Impaired Sensation Description Numbness Tingling Comments Sensation Comments c/o tingling/numbness on R fingers Muscle Tone Muscle Tone WNL Yes M6 PT-IP Treatment Start: 06/28/18 12:31 Freq: NEEDED Status: Active Protocol: Document 06/28/18 09:12 AB (Rec: 06/28/18 12:56 AB [id number]) Physical Therapy Treatment Exercises Exercises Gluteal Sets Quad Sets Education Education Provided Safety Other Treatments Other Treatment Performed educated pt and daughter regarding HEP M7 PT-IP Assessment and Plan Start: 06/28/18 12:31 Freq: NEEDED Status: Active Protocol: Document 06/28/18 09:12 AB (Rec: 06/28/18 12:56 AB [id number]) PT Summary Assessment and Plan Potential Rehabilitation Potential Good Status of Condition at Evaluation Stable Summary Impairments Pain ROM Strength Balance Coordination Sensation Tone Cognition Bed Mobility Transfers Gait Activity Tolerance Assessment Summary pt doing well with mobility. recommending use of FWW upon d /c for stability and safety. daughter and pt agreed. pt plans to go home today. Goals Transfer Goal Independent Gait Goal Independent Gait Distance 250 Other Goals up/down 2 steps with R rail ascending mod I up/down 13 steps with bilateral rails mod I Days to Meet Goals 3 Frequency of Treatment Frequency Of Treatment Once a Day Treatment Plan Physical Therapy Treatment Plan Bed Mobility Training Transfer Training Gait Training Therapeutic Exercise Balance Retraining Discharge Planning Neuromuscular Re-ed Coordination Retraining Manual Therapy Other Recommendations and Next Treatment ambulation; stair climbing Focus Recommendations To Nursing Amount of Assist Needed Standby Assistance Discharge Recommendations PT Discharge Recommendations Home with Assistance
--- NOTE | 2018-06-28 09:30 | CM.DANOTE ---
Addendum entered by Greta Gillis LPN 06/28/18 11:48: Her daughter was at bedside and she was just starting PT eval with Kya. Introduced self and role. Pt is an 82 year old female who admitted to care of the [facility] physicians. PCP: . Payer: Medicare and [facility]. Pt with presumed CVA and PT /OT orders. (Pt with pacemaker so MRI not possible). Dr. Holly saw pt today, said she could go if cleared by OT/PT. Spoke now with STAN Marcum. Pt is doing well for home and will go as soon as the d/c paperwork is completed. PT and OT report no concerns and no need for outpt therapy at this time. Original Note: Discharge Planning/Care Management DCP: assessment: Case received and met with pt. CM Discharge Assessment Start: 06/28/18 09:24 Freq: Status: Active Protocol: Document 06/28/18 09:27 ITV (Rec: 06/28/18 09:29 IT [id number]) Discharge Planning Assessment Advance Directives? Yes History Provided By Patient Medical Record Prior Living Arrangements House Whiteboard Updated in Patient Room with Yes name and ext. # of Receiving Team Member Review Status In Process Next Review Type Continued Stay Review
--- NOTE | 2018-06-28 10:59 | PM.DS.1 ---
History of Present Illness Date Patient Seen: 06/28/18 Time Patient Seen: 10:00 Chief complaint: weakness on rt side Discharge Providers Date of admission: 06/27/18 11:46 Primary care physician: Nataly Wilson DO Consults: 06/27/18 13:11 Consult to Occupational Therapy Evaluate & Treat Comment: CVA Physician Instructions: Evaluate and treat Consult to Physical Therapy Evaluate & Treat Comment: CVA Physician Instructions: Evaluate and Treat Discharge provider: Merlin Holly MD Discharge Date: 06/28/18 Summary Discharge Diagnosis: 1. CVA. 2. Atrial fibrillation. 3. Anticoagulation. 4. Hypothyroidism. 5. Hypertension. 6. Pre-existing pulmonary fibrosis. 7. History of coronary artery disease stable 8. Pacemaker Hospital Course: The patient was admitted by Dr. Bridges for questionable neurologic event. Today she feels she has very minimal residual from the stroke she has apparent weakness of opposition of her index finger to her thumb index finger and thumb seems a bit numb from her perspective remainder of the residual from her stroke has resolved. She has anxious to go home. Physical therapy is reassessing patient currently. There has been some concern by family of perhaps right leg weakness. Additionally concerned about climbing stairs etc this to be reassessed prior to discharge. Exam Vital Signs (past 8 hours): - 06/28/18 03:00 06/28/18 08:00 06/28/18 08:12 Temperature 97.8 F 97.5 F L Pulse Rate 58 L 69 Respiratory Rate 19 16 Blood Pressure 132/70 138/72 Pulse Oximetry 96 98 96 Oxygen Delivery Method Nasal Cannula Oxygen Flow Rate 2 Narrative Exam Narrative: Exam today patient is resting quietly in her bed O2 running. She appears in no distress very conversant alert and oriented x3 the neurologic exam exam of her upper extremities some very minimal if any and weakness of her thumb adduction right hand. She has good strength good security incident response specialist upper extremity strength appears symmetric and intact Lower extremity strength appears symmetric and intact. Did not test her out of bed. Objective Labs Result Diagrams: 06/27/18 09:50 06/27/18 09:50 Labs: Laboratory Results - last 24 hr 06/27/18 06/28/18 16:15 05:54 PT 39.5 H INR 3.4 H Urine Opiates Screen Negative Ur Oxycodone Screen Negative Urine Methadone Screen Negative Ur Barbiturates Screen Negative U Tricyclic Antidepress Negative Ur Phencyclidine Scrn Negative Ur Amphetamines Screen Negative U Methamphetamines Scrn Negative Ur MDMA Scrn (Ecstasy) Negative U Benzodiazepines Scrn Negative Urine Cocaine Screen Negative U Marijuana (THC) Screen Negative Review of CT a done last night shows no intracranial lesion and no apparent stroke. Intracerebral circulation appears compromises versus some replaces internal carotid arteries appear to be adequate with some narrowing but not significant. Para because of the abnormalities on her CT a. And she did in fact suffer a neurologic event despite being anticoagulated we will add aspirin 325 mg daily to the program. She will not take her Coumadin today as her INR was 3.4. She will resume her normal Coumadin tomorrow has an INR planned to her pneumatic tube fitter's office mid week Discharge Plan Discharge Plan Patient Disposition: Home Discharge comment: asa 325mg qd added hold todays warfarin, resume usual dose tomorrow Discharge Med Rec/Prescriptions Prescriptions: Continue amlodipine 5 mg tablet 5 mg PO DAILY RF: 0 atorvastatin 20 mg tablet 20 mg PO DAILY RF: 0 carvedilol 12.5 mg tablet 12.5 mg PO BID RF: 0 furosemide 20 mg tablet 20 mg PO DAILY RF: 0 gabapentin 300 mg capsule 300 mg PO DAILY RF: 0 losartan 50 mg tablet 50 mg PO DAILY RF: 0 mycophenolate mofetil 500 mg tablet 1,000 mg PO BID RF: 0 nitroglycerin 0.4 mg tablet, sublingual 0.4 mg SL Q5-15M PRN (Reason: Chest Pain) RF: 0 warfarin 4 mg tablet 4 mg PO DAILY RF: 0 levothyroxine [Synthroid] 50 mcg tablet 50 mcg PO DAILY RF: 0 prednisone 2.5 mg tablet 2.5 mg PO DAILY RF: 0 multivitamin Tablet 1 tab PO DAILY RF: 0 cholecalciferol (vitamin D3) [Vitamin D3] 2,000 unit Capsule 2,000 unit PO DAILY RF: 0 potassium chloride 20 mEq Tablet Extended Release 20 meq PO DAILY RF: 0 Fish Oil 1 cap PO CONT RF: 0 Vitamin C 1 tab PO DAILY RF: 0 mycophenolate mofetil [CellCept] 500 mg Tablet 1,000 mg PO BID RF: 0 levothyroxine [Synthroid] 50 mcg Tablet RF: 0 Follow up/Referrals: Nataly Wilson DO [Primary Care Provider] - Provider Discharge Instructions Diet: Diet as Tolerated Activity: as tolerated Oxygen: home o2 as per her usual Visit Report/Discharge Packet Instructions: Atrial Fibrillation, DI for Transient Ischemic Attack, Aspirin Visit Report Forms: Stroke Signs & Symptoms Discharge Data Primary Care Provider: Nataly Wilson Attending Provider: Nataly Wilson Admit Date/Time: 06/27/18 11:46 Quality VTE Deep Vein Thrombosis/Pulmonary Embolism Present on Admission: No
--- NOTE | 2018-06-28 12:03 | PC.NURSE ---
Day shift: Pt left unit w/ daughter and this telegraphic typewriter operator to private car in at approx 1155. Paperwork signed and all questions answered. Pt has all personal belongings. No new scrips given by .
--- NOTE | 2018-06-28 15:10 | OT.IP.EVAL ---
Current Diagnoses Essential (primary) hypertension (06/27/18) Atherosclerotic heart disease of [place] coronary artery without angina pectoris (06/27/18) Unspecified atrial fibrillation (06/27/18) Cerebral infarction, unspecified (06/27/18) Interstitial pulmonary disease, unspecified (06/27/18) Abnormal coagulation profile (06/27/18) Presence of cardiac pacemaker (06/27/18) Dependence on supplemental oxygen (06/27/18) Past Medical History (Last Reviewed 06/27/18 @ 17:05 by Nataly Wilson DO) 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) Atrial fibrillation (Chronic) CAD (coronary artery disease) (Chronic) Interstitial lung disease (Chronic) Melanoma (Resolved) TIA (transient ischemic attack) (Resolved) Surgical History (Last Reviewed 06/27/18 @ 17:05 by Nataly Wilson DO) H/O: section (Resolved) Hx of CABG (Resolved) S/P appendectomy (Resolved) S/P hysterectomy (Resolved) S/P knee replacement (Resolved) Occupational Therapy Inpatient Evaluation/Re-Eval M1 PT/OT-IP Prior Functional Status Start: 06/28/18 12:31 Freq: NEEDED Status: Active Protocol: Document 06/28/18 09:12 AB (Rec: 06/28/18 12:56 AB [id number]) Medical Review Prior Functional Status Medical History Reviewed Yes Communication able to make needs known Mobility and Gait stated that she is independent with all mobilities and ambulation without AD Social History Household Members spouse Living Arrangements House Number of Floors (Floors) 3 or More Floors Number of Stairs To Enter/Railing? has 2 steps to enter with R rail ascending; pt plans to stay on main level of the house has 13 steps with bilateral rails to get to bedroom level has steps down to basement( laundry area) but daughter stated that pt does not have to go there at this time Home Environment High Toilet Tub/Shower Home Equipment Front Wheel Walker Shower Seat with Backrest Grab Bars In Shower Employment Status Retired M1 PT/OT-IP Prior Functional Status Start: 06/28/18 14:32 Freq: NEEDED Status: Active Protocol: Document 06/28/18 14:33 [facility] (Rec: 06/28/18 15:10 [facility] [email or web address]) Medical Review Prior Functional Status Medical History Reviewed Yes Communication able to make needs known Mobility and Gait stated that she is independent with all mobilities and ambulation without AD Activities of Daily Living and IADL's Completely independent with IADL's and also drives. Social History Household Members spouse Living Arrangements House Number of Floors (Floors) 3 or More Floors Number of Stairs To Enter/Railing? has 2 steps to enter with R rail ascending; pt plans to stay on main level of the house has 13 steps with bilateral rails to get to bedroom level has steps down to basement( laundry area) but daughter stated that pt does not have to go there at this time Home Environment High Toilet Tub/Shower Home Equipment Front Wheel Walker Shower Seat with Backrest Grab Bars In Shower Employment Status Retired M2 OT-IP Current Condition Start: 06/28/18 14:32 Freq: Status: Active Protocol: Document 06/28/18 14:33 [facility] (Rec: 06/28/18 15:10 [facility] [id number]) Occupational Therapy Current Condition Current Condition Evaluation Date 06/28/18 Treatment Diagnosis Right sided weakness, Afib Diagnosis Onset Date 06/27/18 Post Operative Precautions Other Precautions O2 sat M3 OT- IP Subjective and Pain Start: 06/28/18 14:32 Freq: Status: Active Protocol: Document 06/28/18 14:33 [facility] (Rec: 06/28/18 15:10 [facility] [id number]) OT- Subjective Occupational Therapy Visit Type Type Initial Evaluation Visit Start Time 11:20 Visit Stop Time 11:40 Total Visit Minutes 20 Occupational Therapy Visit Comments Patient/Caregiver Goals Pt ready to go home. OT Pain Assessment Pain When Pain Assessed At Rest Pain Present Pain Present Denied Pain M5 OT- IP IADL's Start: 06/28/18 14:32 Freq: Status: Active Protocol: Document 06/28/18 14:33 [facility] (Rec: 06/28/18 15:10 [facility] [id number]) OT-Instrumental Activities of Daily Living Home Safety Awareness Awareness of Need for Assistance at Home Good Awareness Ability to Problem Solve Emergency Able to Problem Solve Situations Money Management Money Management No Deficits Identified Meal Preparation Meal Preparation Comments Recommend pt's daughter to supervise pt especially for using a knife while cooking due to decreased proprioception and kinesthesia with right hand. M6 OT- IP Functional Cognition Start: 06/28/18 14:32 Freq: Status: Active Protocol: Document 06/28/18 14:33 [facility] (Rec: 06/28/18 15:10 [facility] [id number]) Cognitive Factors Limiting Selfcare Function Cognitive Ability Level of Alertness Alert Patient Orientation Name Age Birthday Month Date Year Day of Week Place Situation Attention Span Ability Capable of Focused Attention Capable of Sustained Attention Ability to Follow Commands Able to Follow Multi-Step Commands Memory Description No Deficits Noted Safety Awareness No Deficits Noted Problem Solving Ability No deficits Noted Executive Function Ability No Deficits Noted Cognitive Comments Cognitive Assessment Comments Pt scored 61 seconds on the [place] [employer] which implies score of greater than 180 seconds more apt to get into a car accident. Pt able to answer all home safety questions 100%. M8 OT- IP Objective Assessments Start: 06/28/18 14:32 Freq: Status: Active Protocol: Document 06/28/18 14:33 [facility] (Rec: 06/28/18 15:10 [facility] [email or web address]) OT Gross Range of Motion Upper Extremity Range of Motion Assessment Within Functional Limits OT Strength Comments Strength Comments RUE 4/5 and LUE 4+/5 OT- Coordination Assessment Comments Coordination Comments Increased time for diadochokinesis, and finger thumb opposition. OT-Muscle Tone Assessment Muscle Tone WNL Yes M9 OT- IP Assessment and Plan Start: 06/28/18 14:32 Freq: Status: Active Protocol: Document 06/28/18 14:33 [facility] (Rec: 06/28/18 15:10 [facility] [email or web address]) OT Summary Assessment and Plan Potential Rehabilitation Potential Excellent Analytic Complexity at Evaluation Low Summary OT Impairments Coordination Progress Towards Goals Progressing Toward Goals Assessment Summary Pt Low complexity and mild decrease strength for right UE and decreased proprioception. Pt to go home today. Pt's to be home and daughter to assist as needed. Recommended that pt use FWW for now per PT. Goals Patient/Caregiver Education Goal Caregiver Independent Assisting Patient Days to Meet Goals 1 Frequency of Treatment Frequency Of Treatment Once a Day Treatment Plan OT Treatment Plan Patient/Family Education Discharge Planning Discharge Recommendations OT Discharge Recommendations Home with Assistance
== END 2018-06-28 12:05 | disposition home or self-care (01) ==
LOC: ED 10:33 → AC 13:16
PROVIDERS: Admitting Provider Family Medicine; Emergency Provider Emergency Medicine; PCP Family Medicine; Visit Provider Family Medicine
DX: I63.9 Cerebral infarction, unspecified (principal); I48.91 Unspecified atrial fibrillation; I25.10 Atherosclerotic heart disease of native coronary artery without angina pectoris; J84.9 Interstitial pulmonary disease, unspecified; J84.10 Pulmonary fibrosis, unspecified; Z95.0 Presence of cardiac pacemaker; R79.1 Abnormal coagulation profile; I10 Essential (primary) hypertension; R29.818 Other symptoms and signs involving the nervous system; Z79.01 Long term (current) use of anticoagulants; Q87.1 Congenital malformation syndromes predominantly associated with short stature; Z95.1 Presence of aortocoronary bypass graft; E03.9 Hypothyroidism, unspecified
CPT/HCPCS: 36415; 36591; 70450; 70496; 70498; 80048; 80305; 81003; 82962; 85025; 85610; 85730; 93005; 93010; 93041; 94760; 94762; 97116; 97161; 97165; 99217; 99219; 99284; G0378; Q9967

== ENCOUNTER → 2018-07-28 13:33 | Outpatient (CLI) | payer MEDICARE, OTHER, SELFPAY ==
[2018-06-27 12:49] VITALS: BMI 30.8
[2018-07-28 13:51] LABS: Add Manual Diff / Slide Review NO; Basophils Absolute Auto 100 /uL (0-100); Basophils Percent Auto 0.7 % (0-2); Eosinophils Absolute Auto 200 /uL (0-450); Eosinophils Percent Auto 2.6 % (2-4); Hematocrit 44.3 % (36-46); Hemoglobin 14.6 g/dL (12.0-16.0); Lymphocytes Absolute Auto 1500 /uL (1100-4500); Mean Corpuscular HGB Conc 32.9 % (30-36); Mean Corpuscular Hemoglobin 29.7 PG (26-34); Mean Corpuscular Volume 90.3 fL (80-100); Monocytes Absolute Auto 700 /uL (0-900); Monocytes Percent Auto 8.1 % (3-14); Neutrophils Absolute Auto 6300 /uL (1500-7000); Neutrophils Percent Auto 71.6 % (50-75); Platelet Count 210 X10^3/uL (150-400); Red Blood Cell Count 4.91 X10^6/uL (4.0-5.2); Red Cell Distribution Width 14.3 % (11.6-14.8); White Blood Cell Count 8.7 X10^3/uL (4.5-11.0)
== END ==
PROVIDERS: PCP Family Medicine; Visit Provider Internal Medicine Pulmonary Disease
DX: M35.8 Other specified systemic involvement of connective tissue (principal); J84.89 Other specified interstitial pulmonary diseases
CPT/HCPCS: 36415; 85025

== ENCOUNTER → 2018-08-11 12:07 | Outpatient (CLI) | payer MEDICARE, OTHER, SELFPAY ==
[2018-06-27 12:49] VITALS: BMI 30.8
--- NOTE | 2018-08-11 12:11 | DI.US.S_ITS ---
PROCEDURE: US SOFT TISSUE HEAD AND NECK INDICATIONS: PAROTID GLAND MASS SEEN ON CT 06-27-18 TECHNIQUE: Real-time scanning was performed of the neck region of interest, with image documentation. COMPARISON: [facility], CT, CT ANGIO HEAD AND NECK, 06/27/2018, 13:54. FINDINGS: There is a solid, hypoechoic mass involving the right parotid gland as was seen on recent CT scan measuring 1.3 x 1.1 x 0.8 cm. Images of the right parotid gland appear normal and there is a small morphologically normal appearing right neck lymph node. IMPRESSION: Solid, hypoechoic left parotid gland mass. Underlying neoplasm cannot be excluded. If indicated sonographically guided fine needle aspiration could be performed. Dictated by: Reinier Smith [facility] Interpreted: Ko Tomlin MD on 08/11/2018 at 13:24 Approved by: Ko Tomlin M.D. on 08/11/2018 at 17:02
== END ==
PROVIDERS: PCP Family Medicine; Visit Provider Family Medicine
DX: K11.9 Disease of salivary gland, unspecified (principal)
CPT/HCPCS: 76536

== ENCOUNTER → 2018-09-05 12:01 | Outpatient (CLI) | payer MEDICARE, OTHER, SELFPAY ==
[2018-06-27 12:49] VITALS: BMI 30.8
[2018-09-05 13:22] LABS: Hematocrit 44.9 % (36-46); Hemoglobin 14.5 g/dL (12.0-16.0); Mean Corpuscular HGB Conc 32.3 % (30-36); Mean Corpuscular Hemoglobin 29.4 PG (26-34); Platelet Count 215 X10^3/uL (150-400); Red Blood Cell Count 4.94 X10^6/uL (4.0-5.2); Red Cell Distribution Width 14.4 % (11.6-14.8); White Blood Cell Count 8.3 X10^3/uL (4.5-11.0)
== END ==
PROVIDERS: PCP Family Medicine; Visit Provider Internal Medicine Pulmonary Disease
DX: M35.8 Other specified systemic involvement of connective tissue (principal); J84.89 Other specified interstitial pulmonary diseases
CPT/HCPCS: 36415; 85027

== ENCOUNTER → 2018-09-30 14:18 | Outpatient (CLI) | payer MEDICARE, OTHER, SELFPAY ==
[2018-06-27 12:49] VITALS: BMI 30.8
[2018-09-30 14:44] LABS: Hematocrit 42.2 % (36-46); Hemoglobin 13.5 g/dL (12.0-16.0); Mean Corpuscular HGB Conc 32.1 % (30-36); Mean Corpuscular Hemoglobin 29.1 PG (26-34); Mean Corpuscular Volume 90.6 fL (80-100); Platelet Count 183 X10^3/uL (150-400); Red Blood Cell Count 4.66 X10^6/uL (4.0-5.2); Red Cell Distribution Width 14.4 % (11.6-14.8); White Blood Cell Count 8.1 X10^3/uL (4.5-11.0)
== END ==
PROVIDERS: PCP Family Medicine; Visit Provider Internal Medicine Pulmonary Disease
DX: M35.8 Other specified systemic involvement of connective tissue (principal); J84.89 Other specified interstitial pulmonary diseases
CPT/HCPCS: 36415; 85027

== ENCOUNTER → 2018-10-21 09:04 | Outpatient (CLI) | payer MEDICARE, OTHER, SELFPAY ==
[2018-06-27 12:49] VITALS: BMI 30.8
--- NOTE | 2018-10-21 | DI.US.S_ITS ---
PROCEDURE: US FINE NEEDLE ASPIRATION INDICATIONS: MASS OF LEFT PAROTID GLAND TECHNIQUE: The indications, alternatives, benefits, risks, and complications of the procedure were explained to the patient. Written informed consent was obtained and placed in the chart. The area of interest was examined sonographically and a site was chosen for ultrasound guided percutaneous sampling. The skin was prepared and draped in the usual fashion, and anesthetized with 1% lidocaine infiltrated from the skin down to the lesion. Multiple passes were then performed, with contents emptied into an appropriate pathology specimen container. A bandage was applied to the area of access at completion of the study. COMPARISON: [facility], CT, CT ANGIO HEAD AND NECK, 06/27/2018, 13:54. FINDINGS: Location(s) of lesion(s) sampled: Left parotid gland solid mass [place]: 25 gauge hypodermic needles. Number of passes: 11, 9 which were conventional fine needle passes, and 2 of which were supplemented with syringe aspiration. Medications: 1% lidocaine for local anaesthesia. Complications: None. IMPRESSION: Successful ultrasound-guided left parotid gland solid mass fine needle aspiration, with cytology results pending. Dictated by: Jarred Wilder M.D. on 10/21/2018 at 12:20 Approved by: Jarred Wilder M.D. on 10/21/2018 at 12:23
--- NOTE | 2018-10-21 | PATH_ITS ---
Note [facility] Accession Number: [id number] TESTS RESULT FLAG UNITS REF RANGE LAB Clinician Provided Cytology Information No. of containers..01 ThinPrep Vial No. of containers..00 Previously Prepared Cytology Slide 01 L PAROTID GLAND MASS Clinician ICD10: K11.9 DIAGNOSIS: 02 L PAROTID GLAND MASS INCONCLUSIVE. THIS INTERPRETATION INCLUDES EVALUATION OF A CELL BLOCK. ONCOCYTIC NODULE. THE DIFFERENTIAL DIAGNOSIS IS LARGE AND INCLUDES WARTHIN'S TUMOR, ONCOCYTOMA, ACINIC CELL CARCINOMA, AND ONCOCYTIC METAPLASIA / HYPERPLASIA IN NORMAL SALIVARY GLANDULAR TISSUE. COMMENT: If clinically indicated, additional sampling or surgical extirpation could be considered for further evaluatin. Pathologist ICD10: K11.9 02 Damaris Serra MD, Pathologist NPI- [id number] Humza Peña, Finish Production Manager ([facility]) 01 30 CC, PINK, CLOUDY Also received 10 alcohol fixed and 10 quick stained slides. /HKH FLAG LEGEND: L-Low Normal,H-High Normal,LL-Alert Low,HH-Alert High <-Panic Low,>-Panic High,A-Abnormal,AA-Critical Abnormal Performed at: 01 =Z [facility] [address] [place] [address], [place] [address] Sherif High MD, 02 LCLWA [facility] [address] [place] [id number] Mary Anne Garces MD, Performed at: [address] [facility], [place], [place] [id number] MD Sherif High MD Phone: [phone]
== END ==
PROVIDERS: PCP Family Medicine; Visit Provider Family Medicine
DX: K11.9 Disease of salivary gland, unspecified (principal)
CPT/HCPCS: 10005

== ENCOUNTER → 2018-10-27 11:20 | Outpatient (CLI) | payer MEDICARE, OTHER, SELFPAY ==
[2018-06-27 12:49] VITALS: BMI 30.8
[2018-10-27 11:59] LABS: Hematocrit 39.6 % (36-46); Hemoglobin 12.8 g/dL (12.0-16.0); Mean Corpuscular HGB Conc 32.2 % (30-36); Mean Corpuscular Hemoglobin 29.3 PG (26-34); Platelet Count 201 X10^3/uL (150-400); Red Blood Cell Count 4.36 X10^6/uL (4.0-5.2); Red Cell Distribution Width 15.1 % (11.6-14.8); White Blood Cell Count 6.6 X10^3/uL (4.5-11.0)
[2018-10-27 13:29] LABS: INR 1.7 (0.9-1.3)
== END ==
PROVIDERS: PCP Family Medicine; Visit Provider Internal Medicine Pulmonary Disease
DX: M35.8 Other specified systemic involvement of connective tissue (principal); I48.91 Unspecified atrial fibrillation; J84.89 Other specified interstitial pulmonary diseases; I63.9 Cerebral infarction, unspecified; Z79.01 Long term (current) use of anticoagulants
CPT/HCPCS: 36415; 85027; 85610

== ENCOUNTER 2019-01-14 15:36 | Emergency (ER) | payer MEDICARE, OTHER, SELFPAY ==
[2018-06-27 12:49] VITALS: BMI 30.8
[2019-01-14 15:43] VITALS: BP 106/60; PULSE 67; RESP 22; TEMP 36.7; O2SAT 93
--- NOTE | 2019-01-14 15:49 | DI.RAD.S_ITS ---
PROCEDURE: XR CHEST 2V INDICATIONS: shortness of breath TECHNIQUE: 2 views of the chest were acquired. COMPARISON: [facility], CT, CT ANGIO CHEST PE PROTOCOL, 01/14/2019, 16:42. [facility], CR, CHEST 2 VIEW, 10/23/2013, 10:32. FINDINGS: Surgical changes and devices: Sternal wires and pacemaker are noted. Lungs and pleura: Emphysematous changes are present. Bilateral areas of patchy opacity are present. Mediastinum: Mediastinal contours are normal. Heart size is normal. Bones and chest wall: No suspicious bony abnormalities. Soft tissues appear unremarkable. IMPRESSION: 1. Bilateral areas of patchy opacity including groundglass like opacities better appreciated on CT chest of 01/14/19. Overall, appearance is unchanged and appears most suggestive of infection/inflammation such as pneumonia. Underlying areas of edema cannot be excluded. Dictated by: Kristen Corona M.D. on 01/16/2019 at 7:38 Approved by: Kristen Corona M.D. on 01/16/2019 at 7:40
[2019-01-14 16:10] LABS: Add Manual Diff / Slide Review NO; Basophils Absolute Auto 0 /uL (0-100); Basophils Percent Auto 0.4 % (0-2); Eosinophils Absolute Auto 0 /uL (0-450); Eosinophils Percent Auto 0.3 % (2-4); Hematocrit 41.4 % (36-46); Hemoglobin 13.5 g/dL (12.0-16.0); Lymphocytes Absolute Auto 900 /uL (1100-4500); Lymphocytes Percent Auto 10.9 % (25-40); Mean Corpuscular HGB Conc 32.6 % (30-36); Mean Corpuscular Hemoglobin 29.8 PG (26-34); Mean Corpuscular Volume 91.4 fL (80-100); Monocytes Absolute Auto 600 /uL (0-900); Monocytes Percent Auto 7.8 % (3-14); Neutrophils Absolute Auto 6600 /uL (1500-7000); Neutrophils Percent Auto 80.6 % (50-75); Platelet Count 151 X10^3/uL (150-400); Red Blood Cell Count 4.52 X10^6/uL (4.0-5.2); Red Cell Distribution Width 14.6 % (11.6-14.8); White Blood Cell Count 8.1 X10^3/uL (4.5-11.0)
[2019-01-14 16:19] LABS: INR 3.8 (0.9-1.3); Prothrombin Time 44.8 SECONDS (10.1-12.7)
[2019-01-14 16:23] LABS: Alanine Aminotransferase 25 IU/L (9-52); Albumin Globulin Ratio 1.1 (1.0-2.8); Alkaline Phosphatase 61 U/L (38-126); Aspartate Aminotransferase 27 IU/L (14-36); BUN Creatinine Ratio 22.5 (6-22); Bilirubin Total 0.6 mg/dL (0.2-1.3); Blood Urea Nitrogen 18 mg/dL (7-17); Calcium 8.7 mg/dL (8.4-10.2); Carbon Dioxide 29 mmol/L (22-32); Chloride 99 mmol/L (98-107); Estimated Glomerular Filt Rate > 60.0 mL/min (>60); Globulin 3.6 g/dL (1.7-4.1); Glucose 97 mg/dL (80-110); HEMOLYSIS < 15 (0-50); Potassium 3.5 mmol/L (3.4-5.1); Sodium 139 mmol/L (137-145); Total Protein 7.6 g/dL (6.3-8.2)
[2019-01-14 16:24] LABS: Lactate (Lactic Acid) 0.8 mmol/L (0.7-2.1)
--- NOTE | 2019-01-14 16:24 | DI.CT.S_ITS ---
PROCEDURE: CT ANGIO CHEST PE PROTOCOL INDICATIONS: hypoxia intersital lung disease TECHNIQUE: After the administration of intravenous contrast, 2 mm thick sections acquired from the pulmonary apices to the posterior costophrenic angles. 3-dimensional maximum intensity projection (MIP) coronal and sagittal reformats were then acquired through the thorax. For radiation dose reduction, the following was used: automated exposure control, adjustment of mA and/or kV according to patient size. COMPARISON: None. FINDINGS: Image quality: Excellent. Pulmonary arteries: Pulmonary arteries are normal in size, and demonstrate no intraluminal filling defects to suggest central pulmonary embolism. Lungs and pleura: There is biapical scarring. Thickened interlobular septa throughout periphery of bilateral lung banks are seen. Extensive patchy groundglass opacities are seen throughout bilateral lung banks. Patchy airspace opacity in the left lower lobe is seen, which may represent small left lower lobe infiltrates. Moderate centrilobular emphysema is also seen. No pleural effusions or pneumothorax. Central and peripheral airways are patent. Mediastinum: Heart size is mildly enlarged, without pericardial effusion. Median sternotomy wires and surgical clips are seen. Enlarged mediastinal and right hilar lymph nodes are seen measuring up to 1.8 cm in short axis diameter in subcarinal space. Thoracic aorta is normal in caliber and enhancement. Esophagus is normal in caliber, with a small hiatal hernia. Bones and chest wall: Left chest wall pacemaker leads are seen in the region of right atrium and right ventricle. No suspicious bony lesions. Degenerative disc disease throughout thoracic spine is seen. Thyroid gland is within normal limits. No axillary or supraclavicular adenopathy. Abdomen: Visualized upper abdominal solid organs appear normal in the early arterial phase of enhancement. IMPRESSION: 1. No evidence of pulmonary emboli. 2. Cardiomegaly. Left chest wall pacemaker in place. Prior cardiac surgery. No pericardial effusion. 3. Moderate centrilobular emphysema. Extensive groundglass opacity and thickened interlobular septa scattered throughout bilateral lung banks are prominent in lower lobes concerning for pneumonitis and early interstitial pulmonary fibrosis. Suggestion of scattered left lower lobe infiltrates. No pleural effusion or pneumothorax. 4. Prominent mediastinal lymph nodes and right hilar lymph nodes and likely represent reactive inflammatory lymphadenopathy. Dictated by: Ko Tomlin M.D. on 01/14/2019 at 16:11 Approved by: Ko Tomlin M.D. on 01/14/2019 at 16:26
--- NOTE | 2019-01-14 16:26 | ED.SOB ---
HPI - SOB/Dyspnea General Chief Complaint: Shortness of Breath/Dyspnea Stated Complaint: upper respiratory issues with breathing Time Seen by Provider: 01/14/19 15:53 Source: patient Mode of arrival: ambulatory Limitations: no limitations History of Present Illness Is a 83-year-old female with chronic interstitial lung disease on home oxygen presenting with increasing shortness of breath with exertion. She says she and her just got back from [place] they both had some symptoms of nonproductive cough however she is having worsening shortness of breath with exertion. She is always on oxygen she has not noted that she needed any more. However with minimal exertion she is extremely short of breath she is also having some right-sided posterior thoracic pain. She denies any abdominal pain no chest pain, no nausea diaphoresis or heart palpitations. She says her was diagnosed with a viral syndrome yesterday however she feels much worse. She denies any fever sweats or chills. She does state that last evening she could not lie flat MD Complaint: shortness of breath Consistency/Duration: constant Relieving factors: oxygen and rest Known history of: other (Interstitial lung disease) Related Data Home Medications Medication Instructions Recorded Confirmed amlodipine 5 mg tablet 5 mg PO DAILY 12/13/17 01/14/19 atorvastatin 20 mg tablet 20 mg PO DAILY 12/13/17 01/14/19 carvedilol 12.5 mg tablet 12.5 mg PO BID 12/13/17 01/14/19 furosemide 20 mg tablet 20 mg PO DAILY 12/13/17 01/14/19 gabapentin 300 mg capsule 300 mg PO DAILY cap 12/13/17 01/14/19 losartan 50 mg tablet 50 mg PO DAILY 12/13/17 01/14/19 mycophenolate mofetil 500 mg tablet 1,000 mg PO BID 12/13/17 01/14/19 nitroglycerin 0.4 mg sublingual 0.4 mg SL Q5-15M PRN 12/13/17 01/14/19 tablet warfarin 4 mg tablet 4 mg PO QPM 12/13/17 01/14/19 Fish Oil 1 cap PO DAILY 06/27/18 01/14/19 Vitamin C 1 tab PO DAILY 06/27/18 01/14/19 cholecalciferol (vitamin D3) 2,000 unit PO DAILY 06/27/18 01/14/19 [Vitamin D3] levothyroxine [Synthroid] 50 mcg PO DAILY 06/27/18 01/14/19 multivitamin 1 tab PO DAILY 06/27/18 01/14/19 potassium chloride 20 meq PO DAILY 06/27/18 01/14/19 prednisone 2.5 dose PO DAILY 06/27/18 01/14/19 aspirin 325 mg tablet 325 mg PO DAILY 07/04/18 01/14/19 Allergies Allergy/AdvReac Type Severity Reaction Status Date / Time adhesive Allergy Mild RASH/BLISTERS Verified 07/04/18 10:20 PAPER/SIKL TAPE OK Review of Systems Review of Systems GENERAL: Denies chills, fatigue, malaise, fever, sweats, travel HEENT: Denies sinus pain, ear pain, sore throat, difficulty swallowing, neck pain RESPIRATORY: See HPI CARDIOVASCULAR: Denies chest pain, palpitations, orthopnea, edema GASTROINTESTINAL: Denies nausea, vomiting, abdominal pain, diarrhea, constipation, melena. : Denies dysuria, frequency, incontinence, hematuria, urinary retention, flank pain. MUSCULOSKELETAL: Denies weakness, joint pain, or bony pain SKIN: No rash, no erythema, no pruritus NEUROLOGIC: Denies weakness, dizziness, headache, numbness, change in speech, confusion PSYCHIATRIC: No concerning psychosocial issues. 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) Atrial fibrillation (Chronic) CAD (coronary artery disease) (Chronic) Interstitial lung disease (Chronic) Melanoma (Resolved) TIA (transient ischemic attack) (Resolved) Surgical History H/O: section (Resolved) Hx of CABG (Resolved) S/P appendectomy (Resolved) S/P hysterectomy (Resolved) S/P knee replacement (Resolved) Social History marital status: number of children: 2 household members: spouse lives independently: Yes education level: college occupational status: other (retired) Smoking Status: Never smoker alcohol intake: current substance use type: does not use Social History (Reviewed 01/14/19 @ 16:29 by DAVIDA Baez marital status: number of children: 2 household members: spouse lives independently: Yes education level: college occupational status: other (retired) Smoking Status: Never smoker alcohol intake: current substance use type: does not use Exam Initial Vital Signs Initial Vital Signs: Vital Signs Temperature 98.1 F 01/14/19 15:43 Pulse Rate 67 01/14/19 15:43 Respiratory Rate 22 01/14/19 15:43 Blood Pressure 106/60 01/14/19 15:43 Pulse Oximetry 93 01/14/19 15:43 GENERAL: Alert well-appearing female HEENT: Head atraumatic,EOMI, pupils reactive, neck is supple no JVD CARDIOVASCULAR: Regular rate and rhythm without murmurs, rubs or gallops. RESPIRATORY: Decreased breath sounds bilaterally no respiratory distress using ribs rhonchi ABDOMEN: Soft, nontender. Normoactive bowel sounds all 4 quadrants. No guarding or rebound. : No CVA tenderness EXTREMITIES: Normal range of motion, no clubbing or edema. Neurovascularly intact NEUROLOGICAL: Alert and oriented x4.Normal gait and speech. Cranial nerves II through XII grossly intact. SKIN: Warm, dry, no laceration, no petechiae, no rashes or lesions. Course Orders Ordered: Discontinued Medications Furosemide (Lasix) 20 mg IV NOW ONE Stop: 01/14/19 17:42 Last Admin: 01/14/19 18:11 Dose: 20 mg Vital Signs - 8 hr 01/14/19 15:43 01/14/19 16:30 01/14/19 16:36 Temperature 98.1 F Pulse Rate 67 79 73 Respiratory Rate 22 19 25 H Blood Pressure 106/60 Blood Pressure [Left Arm] 112/61 112/61 Pulse Oximetry 93 96 92 01/14/19 17:00 Temperature Pulse Rate 75 Respiratory Rate 25 H Blood Pressure Blood Pressure [Left Arm] 115/59 L Pulse Oximetry MDM - SOB/Dyspnea Lab Data Attestation: I reviewed the patient's lab results. Result diagrams: 01/14/19 16:00 01/14/19 16:00 Lab Results 01/14/19 01/14/19 01/14/19 Range/Units 16:00 16:00 16:00 WBC 8.1 (4.5-11.0) X10^3/uL RBC 4.52 (4.0-5.2) X10^6/uL Hgb 13.5 (12.0-16.0) g/dL Hct 41.4 (36-46) % MCV 91.4 (80-100) fL MCH 29.8 (26-34) PG MCHC 32.6 (30-36) % RDW 14.6 (11.6-14.8) % Plt Count 151 (150-400) X10^3/uL Neut % (Auto) 80.6 H (50-75) % Lymph % (Auto) 10.9 L (25-40) % [place] % (Auto) 7.8 (3-14) % Eos % (Auto) 0.3 L (2-4) % Baso % (Auto) 0.4 (0-2) % Neut # (Auto) 6600 (6769-2292) /uL Lymph # (Auto) 900 L (0087-6213) /uL [place] # (Auto) 600 (0-900) /uL Eos # (Auto) 0 (0-450) /uL Baso # (Auto) 0 (0-100) /uL PT 44.8 H (10.1-12.7) SECONDS INR 3.8 H (0.9-1.3) Sodium 139 (137-145) mmol/L Potassium 3.5 (3.4-5.1) mmol/L Chloride 99 (98-107) mmol/L Carbon Dioxide 29 (22-32) mmol/L BUN 18 H (7-17) mg/dL Creatinine 0.80 (0.52-1.04) mg/dL Estimated GFR > 60.0 (>60) mL/min BUN/Creatinine Ratio 22.5 H (6-22) Glucose 97 (80-110) mg/dL Lactate (0.7-2.1) mmol/L Calcium 8.7 (8.4-10.2) mg/dL Total Bilirubin 0.6 (0.2-1.3) mg/dL AST 27 (14-36) IU/L ALT 25 (9-52) IU/L Alkaline Phosphatase 61 (38-126) U/L B-Natriuretic Peptide 388 H (<100) Total Protein 7.6 (6.3-8.2) g/dL Albumin 4.0 (3.5-5.0) g/dL Globulin 3.6 (1.7-4.1) g/dL Albumin/Globulin Ratio 1.1 (1.0-2.8) 01/14/19 Range/Units 16:00 WBC (4.5-11.0) X10^3/uL RBC (4.0-5.2) X10^6/uL Hgb (12.0-16.0) g/dL Hct (36-46) % MCV (80-100) fL MCH (26-34) PG MCHC (30-36) % RDW (11.6-14.8) % Plt Count (150-400) X10^3/uL Neut % (Auto) (50-75) % Lymph % (Auto) (25-40) % [place] % (Auto) (3-14) % Eos % (Auto) (2-4) % Baso % (Auto) (0-2) % Neut # (Auto) (8524-9746) /uL Lymph # (Auto) (5719-3341) /uL [place] # (Auto) (0-900) /uL Eos # (Auto) (0-450) /uL Baso # (Auto) (0-100) /uL PT (10.1-12.7) SECONDS INR (0.9-1.3) Sodium (137-145) mmol/L Potassium (3.4-5.1) mmol/L Chloride (98-107) mmol/L Carbon Dioxide (22-32) mmol/L BUN (7-17) mg/dL Creatinine (0.52-1.04) mg/dL Estimated GFR (>60) mL/min BUN/Creatinine Ratio (6-22) Glucose (80-110) mg/dL Lactate 0.8 (0.7-2.1) mmol/L Calcium (8.4-10.2) mg/dL Total Bilirubin (0.2-1.3) mg/dL AST (14-36) IU/L ALT (9-52) IU/L Alkaline Phosphatase (38-126) U/L B-Natriuretic Peptide (<100) Total Protein (6.3-8.2) g/dL Albumin (3.5-5.0) g/dL Globulin (1.7-4.1) g/dL Albumin/Globulin Ratio (1.0-2.8) Imaging Data Chest x-ray: Attestation: I personally reviewed and interpreted this imaging study as follows: My impression: Pacemaker noted chronic scarring no consolidations diffuse interstitial disease CT scan - chest: Radiologist's impression: PROCEDURE: CT ANGIO CHEST PE PROTOCOL INDICATIONS: hypoxia intersital lung disease TECHNIQUE: After the administration of intravenous contrast, 2 mm thick sections acquired from the pulmonary apices to the posterior costophrenic angles. 3-dimensional maximum intensity projection (MIP) coronal and sagittal reformats were then acquired through the thorax. For radiation dose reduction, the following was used: automated exposure control, adjustment of mA and/or kV according to patient size. COMPARISON: None. FINDINGS: Image quality: Excellent. Pulmonary arteries: Pulmonary arteries are normal in size, and demonstrate no intraluminal filling defects to suggest central pulmonary embolism. Lungs and pleura: There is biapical scarring. Thickened interlobular septa throughout periphery of bilateral lung banks are seen. Extensive patchy groundglass opacities are seen throughout bilateral lung banks. Patchy airspace opacity in the left lower lobe is seen, which may represent small left lower lobe infiltrates. Moderate centrilobular emphysema is also seen. No pleural effusions or pneumothorax. Central and peripheral airways are patent. Mediastinum: Heart size is mildly enlarged, without pericardial effusion. Median sternotomy wires and surgical clips are seen. Enlarged mediastinal and right hilar lymph nodes are seen measuring up to 1.8 cm in short axis diameter in subcarinal space. Thoracic aorta is normal in caliber and enhancement. Esophagus is normal in caliber, with a small hiatal hernia. Bones and chest wall: Left chest wall pacemaker leads are seen in the region of right atrium and right ventricle. No suspicious bony lesions. Degenerative disc disease throughout thoracic spine is seen. Thyroid gland is within normal limits. No axillary or supraclavicular adenopathy. Abdomen: Visualized upper abdominal solid organs appear normal in the early arterial phase of enhancement. IMPRESSION: 1. No evidence of pulmonary emboli. 2. Cardiomegaly. Left chest wall pacemaker in place. Prior cardiac surgery. No pericardial effusion. 3. Moderate centrilobular emphysema. Extensive groundglass opacity and thickened interlobular septa scattered throughout bilateral lung banks are prominent in lower lobes concerning for pneumonitis and early interstitial pulmonary fibrosis. Suggestion of scattered left lower lobe infiltrates. No pleural effusion or pneumothorax. 4. Prominent mediastinal lymph nodes and right hilar lymph nodes and likely represent reactive inflammatory lymphadenopathy. Dictated by: Ko Tomlin M.D. on 01/14/2019 at 16:11 ECG Data Attestation: I personally reviewed and interpreted this ECG as follows: Prior ECG tracings: available for review Interpretation: Atrial fibrillation rate 66 BC noted pacemaker noted MDM Narrative Medical decision making narrative: Patient had had full workup no abnormality found on head CT or chest CT. She does seem to have orthopnea and difficulty breathing when she lies down. She is on Lasix no significant pleural effusions noted. His BNP slightly elevated. I recommend increasing her Lasix at this time symptoms seem to be more consistent with a CHF like pattern although she has no history of CHF if this does not help we discussed increasing her prednisone. She in her mounter clarinets have been trying to decrease her prednisone and switch her over to a different medication. She agrees to this treatment plan with understanding that it may need to change. Discharge Plan Departure Patient Disposition: Home Clinical Impression: Interstitial lung disease Discharge Date/Time: 01/14/19 18:59 Interventions: ED Discharge Assessment Last Done: 01/14/19 18:58 Instructions: DI for Heart Failure Activity Restrictions/Additional Instructions: *You have been diagnosed with interstitial lung disease *What to do: It does seem like you have some fluid on her lungs. We will increase her furosemide to twice daily. If this does not work you may need to increase your prednisone. Please see your mounter clarinets for your PCP. *Continue to take medications as directed For O some eye 20 mg twice a day for 3 days starting tomorrow, then return to 20 mg once a day *Follow up with your primary care provider in 2-3 days *Return to ER if you should have increasing shortness of breath, fever or any new, worsening or concerning symptoms Prescriptions: No Action amlodipine 5 mg tablet 5 mg PO DAILY RF: 0 atorvastatin 20 mg tablet 20 mg PO DAILY RF: 0 carvedilol 12.5 mg tablet 12.5 mg PO BID RF: 0 furosemide 20 mg tablet 20 mg PO DAILY RF: 0 gabapentin 300 mg capsule 300 mg PO DAILY RF: 0 losartan 50 mg tablet 50 mg PO DAILY RF: 0 mycophenolate mofetil 500 mg tablet 1,000 mg PO BID RF: 0 nitroglycerin 0.4 mg tablet, sublingual 0.4 mg SL Q5-15M PRN (Reason: Chest Pain) RF: 0 warfarin 4 mg tablet 4 mg PO QPM RF: 0 aspirin 325 mg tablet 325 mg PO DAILY RF: 0 levothyroxine [Synthroid] 50 mcg tablet 50 mcg PO DAILY RF: 0 prednisone 2.5 mg tablet 2.5 dose PO DAILY RF: 0 multivitamin Tablet 1 tab PO DAILY RF: 0 cholecalciferol (vitamin D3) [Vitamin D3] 2,000 unit Capsule 2,000 unit PO DAILY RF: 0 potassium chloride 20 mEq Tablet Extended Release 20 meq PO DAILY RF: 0 Fish Oil 1 cap PO DAILY RF: 0 Vitamin C 1 tab PO DAILY RF: 0 Referrals: Nataly Wilson DO [Primary Care Provider] -
[2019-01-14 16:30] VITALS: BP 112/61; PULSE 79; RESP 19; O2SAT 96
[2019-01-14 16:35] LABS: B Type Natriuretic Peptide 388 (<100)
[2019-01-14 16:36] VITALS: BP 112/61; PULSE 73; RESP 25; O2SAT 92
[2019-01-14 17:00] VITALS: BP 115/59; PULSE 75; RESP 25
[2019-01-14 17:52] VITALS: BP 121/57; PULSE 75; RESP 24; O2SAT 98
[2019-01-14 18:00] VITALS: BP 110/63; PULSE 67; RESP 23; O2SAT 93
[2019-01-14] MEDS: FUROSEMIDE 20 MG/2 ML VIAL IV (18:11)
--- NOTE | 2019-01-14 18:40 | RT ---
ER nurse ordered peak flow; confirmed with Dr. Best, cancel this order.
== END 2019-01-14 18:59 | disposition home or self-care (01) ==
PROVIDERS: Emergency Provider Emergency Medicine; Family Provider Family Medicine; PCP Family Medicine
DX: J84.9 Interstitial pulmonary disease, unspecified (principal); I48.91 Unspecified atrial fibrillation; Z95.0 Presence of cardiac pacemaker; Z95.1 Presence of aortocoronary bypass graft
CPT/HCPCS: 36591; 71046; 71275; 80053; 83605; 83880; 85025; 85610; 93005; 93041; 96374; 99284; 99285; J1940; Q9967

== ENCOUNTER 2019-01-19 08:37 | Inpatient (IN) | payer MEDICARE, OTHER, SELFPAY ==
[2018-06-27 12:49] VITALS: BMI 30.8
[2019-01-19] VITALS (20 sets, daily range): BP systolic 106–149; BP diastolic 54–79; PULSE 18–92; RESP 16–27; TEMP 36.6–37.2; O2SAT 90–98; BMI 30.9
--- NOTE | 2019-01-19 08:49 | ED.SOB ---
HPI - SOB/Dyspnea General Chief Complaint: Shortness of Breath/Dyspnea Stated Complaint: sob Time Seen by Provider: 01/19/19 08:38 Source: patient, EMS and old records reviewed Mode of arrival: EMS Limitations: no limitations History of Present Illness This is an 83-year-old female comes to the emergency department with complaint of shortness of breath. Patient states she has been increasingly short of breath since felt the 15 of January. Patient states that even trying to get to the bathroom is quite difficult. She denies any chest pain or pressure. She has known interstitial lung disease she is normally on 2 L nasal cannula. She pulmonology in [place]. Patient has not had any fevers or chills. She has had a cough it has been a little bit of productive and blood tinged. Patient states that she has also noted worsening swelling in her lower extremities. She denies CHF but she has a history of CABG and atrial fibrillation. She is on Lasix as well as warfarin, amlodipine, carvedilol, potassium and losartan. She does take prednisone 2.5 mg daily along with atorvastatin, gabapentin Citrucel and CellCept and Synthroid. She has a history of tonsillectomy, appendectomy and 2 C sections as well as knee replacements and bypass along with a pacemaker. Related Data Home Medications Medication Instructions Recorded Confirmed amlodipine 5 mg tablet 5 mg PO QPM 12/13/17 01/19/19 atorvastatin 20 mg tablet 20 mg PO QPM 12/13/17 01/19/19 carvedilol 12.5 mg tablet 12.5 mg PO BID 12/13/17 01/19/19 furosemide 20 mg tablet 20 mg PO BID 12/13/17 01/19/19 gabapentin 300 mg capsule 300 mg PO QPM cap 12/13/17 01/19/19 losartan 50 mg tablet 50 mg PO QPM 12/13/17 01/19/19 mycophenolate mofetil 500 mg tablet 1,000 mg PO BID 12/13/17 01/19/19 nitroglycerin 0.4 mg sublingual 0.4 mg SL Q5-15M PRN 12/13/17 01/19/19 tablet warfarin 4 mg tablet 4 mg PO QPM 12/13/17 01/19/19 levothyroxine [Synthroid] 50 mcg PO DAILY 06/27/18 01/19/19 multivitamin 1 tab PO DAILY 06/27/18 01/19/19 omega [id number] oil [Fish Oil] 1 cap PO DAILY 06/27/18 01/19/19 potassium chloride 20 meq PO DAILY 06/27/18 01/19/19 prednisone 2.5 dose PO DAILY 06/27/18 01/19/19 aspirin 325 mg tablet 325 mg PO DAILY 07/04/18 01/19/19 Fish Oil 1 cap PO QAM 01/19/19 01/19/19 calcium citrate-vitamin D3 1 tab PO DAILY 01/19/19 01/19/19 [Citracal Regular] krill oil 1 cap PO QPM 01/19/19 01/19/19 Allergies Allergy/AdvReac Type Severity Reaction Status Date / Time adhesive Allergy Mild RASH/BLISTERS Verified 01/19/19 09:33 PAPER/SIKL TAPE OK Review of Systems Review of Systems ROS Unobtainable: All systems reviewed & are unremarkable except as noted in HPI and below Constitutional Denies chills, Denies fever(s), Reports lethargy, Reports malaise and Denies weakness Cardiovascular Denies chest pain, Denies chest pain at rest, Reports diaphoresis, Denies syncope, Reports lightheadedness, Denies palpitations, Reports dyspnea, Reports dyspnea on exertion and Reports orthopnea Respiratory Denies chest congestion, Reports cough, Reports hemoptysis (Blood tinge), Reports excessive phlegm production, Reports dyspnea, Reports dyspnea on exertion and Denies stridor Gastrointestinal Gastrointestinal: Denies abdominal pain, Denies melena, Denies hematochezia, Denies change in bowel habits, Reports diarrhea (Last night x4), Denies nausea and Denies vomiting Genitourinary Denies hematuria, Denies urinary frequency, Denies dysuria, Denies flank pain and Denies urinary urgency Integumentary/Breasts Denies unusual bruising Neurologic Denies syncope and Denies weakness Endocrine Denies palpitations [facility] Medical History 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) Atrial fibrillation (Chronic) CAD (coronary artery disease) (Chronic) Interstitial lung disease (Chronic) Melanoma (Resolved) TIA (transient ischemic attack) (Resolved) Surgical History H/O: section (Resolved) Hx of CABG (Resolved) S/P appendectomy (Resolved) S/P hysterectomy (Resolved) S/P knee replacement (Resolved) Social History marital status: number of children: 2 household members: spouse lives independently: Yes education level: college occupational status: other (retired) Smoking Status: Never smoker alcohol intake: current substance use type: does not use Social History marital status: number of children: 2 household members: spouse lives independently: Yes education level: college occupational status: other (retired) Smoking Status: Never smoker alcohol intake: current substance use type: does not use Exam Narrative Exam Narrative: GEN: well nourished, elderly female, alert and oriented x 3, patient appears to be in moderate distress. HEENT: Atraumatic, pupils are equal round reactive to light, extraocular movements are intact, nares are clear, TMs are clear with no fluid. Throat is clear without any exudates, erythema, tonsillar enlargement or uvular deviation HEART: Regular rate and rhythm without murmur, clicks, rubs. Pulses are equal in upper and lower extremities, patient has 1+ edema bilateral lower extremities. LUNGS:Lungs have wheeze bilaterally, patient also has a little bit of rales in the bases. She has tachypnea along with some mild accessory muscle use in the SCM, chest moves symmetrically. Patient speaks in 3-5 word sentences. ABD:bowel sounds normal, soft, non-tender, no guarding, rebound, rigidity, no masses noted, no hepatosplenomegaly :No CVA tenderness MSCL: Non-tender, no muscle atrophy, muscles strength 5/5 upper and lower extremities, full range of motion NEURO:CN 2-12 intact, sensation normal Initial Vital Signs Initial Vital Signs: Vital Signs Temperature 98.2 F 01/19/19 08:40 Pulse Rate 92 H 01/19/19 08:40 Respiratory Rate 27 H 01/19/19 08:40 Blood Pressure 149/59 H 01/19/19 08:40 Pulse Oximetry 91 01/19/19 08:40 Course Orders Ordered: ED Orders 01/19/19 12:09 EC echo doppler complete Stat Education, smoking cessation ONGOING 01/20/19 05:00 Basic Metabolic Panel DAILY Complete Blood Count AUTO DIFF DAILY Prothrombin Time INR DAILY Acetaminophen (Tylenol) 650 mg PO Q6HR PRN PRN Reason: As Needed for Fever/Mild Pain Albuterol (Ventolin) 2.5 mg INH [id number] PRN PRN Reason: Shortness Of Breath Last Admin: 01/19/19 18:01 Dose: 2.5 mg Amlodipine Besylate (Norvasc) 5 mg PO QPM [facility] Last Admin: 01/19/19 17:57 Dose: 5 mg Atorvastatin Calcium (Lipitor) 20 mg PO QPM [facility] Last Admin: 01/19/19 17:57 Dose: 20 mg Bisacodyl (Dulcolax) 10 mg PO DAILY PRN PRN Reason: Constipation Calcium Carbonate (Tums) 1,000 mg PO Q4HR PRN PRN Reason: Dyspepsia Carvedilol (Coreg) 12.5 mg PO BID [facility] Furosemide (Lasix) 40 mg IV Q12HR [facility] Last Admin: 01/19/19 14:56 Dose: 40 mg Gabapentin (Neurontin) 300 mg PO QPM [facility] Last Admin: 01/19/19 17:57 Dose: 300 mg Levothyroxine Sodium (Synthroid) 50 mcg PO DAILY [facility] Losartan Potassium (Cozaar) 50 mg PO QPM [facility] Last Admin: 01/19/19 17:57 Dose: 50 mg Mycophenolate Mofetil (Cellcept) 1,000 mg PO BID [facility] Nitroglycerin (Nitrostat) 0.4 mg SL Q5M PRN PRN Reason: Chest Pain Ondansetron HCl (Zofran Odt) 4 mg PO Q8HR PRN PRN Reason: Nausea And Vomiting Potassium Chloride (Klor-Con M20) 20 meq PO DAILY [facility] Prednisone (Deltasone) 40 mg PO DAILY [facility] Last Admin: 01/19/19 18:00 Dose: 40 mg Discontinued Medications Albuterol/Ipratropium (Duoneb) 3 ml INH NOW ONE Stop: 01/19/19 08:48 Last Admin: 01/19/19 08:54 Dose: 3 ml Furosemide (Lasix) 40 mg IV NOW ONE Stop: 01/19/19 08:48 Last Admin: 01/19/19 08:54 Dose: 40 mg Methylprednisolone (Solu-Medrol 125 Mg Vial) 125 mg IV NOW ONE Stop: 01/19/19 08:48 Last Admin: 01/19/19 08:54 Dose: 125 mg Prednisone (Deltasone) 2.5 mg PO DAILY [facility] Vital Signs - 8 hr 01/19/19 11:00 01/19/19 11:30 01/19/19 11:54 Temperature Pulse Rate 86 76 77 Respiratory Rate 18 21 22 Blood Pressure 139/79 Blood Pressure [Right Arm] 124/61 121/57 L Pulse Oximetry 91 93 94 01/19/19 12:09 01/19/19 15:20 01/19/19 17:57 Temperature 97.9 F 98.9 F Pulse Rate 84 88 88 Respiratory Rate 16 20 Blood Pressure 113/54 L 112/63 112/63 Blood Pressure [Right Arm] Pulse Oximetry 96 94 01/19/19 18:00 Temperature Pulse Rate 18 L Respiratory Rate 18 Blood Pressure Blood Pressure [Right Arm] Pulse Oximetry 95 MDM - SOB/Dyspnea Lab Data Attestation: I reviewed the patient's lab results. Result diagrams: 01/19/19 08:51 01/19/19 08:52 Lab Results 01/19/19 01/19/19 01/19/19 Range/Units 08:51 08:52 08:52 WBC 10.2 (4.5-11.0) X10^3/uL RBC 4.69 (4.0-5.2) X10^6/uL Hgb 13.9 (12.0-16.0) g/dL Hct 42.3 (36-46) % MCV 90.2 (80-100) fL MCH 29.7 (26-34) PG MCHC 32.9 (30-36) % RDW 14.4 (11.6-14.8) % Plt Count 225 (150-400) X10^3/uL Neut % (Auto) 85.4 H (50-75) % Lymph % (Auto) 6.9 L (25-40) % Gates % (Auto) 7.3 (3-14) % Eos % (Auto) 0.3 L (2-4) % Baso % (Auto) 0.1 (0-2) % Neut # (Auto) 8700 H (1281-5282) /uL Lymph # (Auto) 700 L (2478-1860) /uL Gates # (Auto) 700 (0-900) /uL Eos # (Auto) 0 (0-450) /uL Baso # (Auto) 0 (0-100) /uL PT 69.0 H D (10.1-12.7) SECONDS INR 5.7 H* (0.9-1.3) Sodium (137-145) mmol/L Potassium (3.4-5.1) mmol/L Chloride (98-107) mmol/L Carbon Dioxide (22-32) mmol/L BUN (7-17) mg/dL Creatinine (0.52-1.04) mg/dL Estimated GFR (>60) mL/min BUN/Creatinine Ratio (6-22) Glucose (80-110) mg/dL Lactate (0.7-2.1) mmol/L Calcium (8.4-10.2) mg/dL Magnesium 2.0 (1.6-2.3) mg/dL Total Bilirubin (0.2-1.3) mg/dL AST (14-36) IU/L ALT (9-52) IU/L Alkaline Phosphatase (38-126) U/L Total Creatine Kinase 60 (30-135) U/L CK-MB (CK-2) TNP CK-MB (CK-2) Rel Index TNP Troponin I < 0.012 (0.01-0.034) ng/mL B-Natriuretic Peptide 926 H (<100) Total Protein (6.3-8.2) g/dL Albumin (3.5-5.0) g/dL Globulin (1.7-4.1) g/dL Albumin/Globulin Ratio (1.0-2.8) Procalcitonin (<0.5) ng/mL Urine RBC (0-5/HPF) Urine WBC (0-5/HPF) Ur Squamous Epith Cells (0-5/HPF) Urine Bacteria (None) Ur Culture Indicated? 01/19/19 01/19/19 01/19/19 Range/Units 08:52 08:52 09:05 WBC (4.5-11.0) X10^3/uL RBC (4.0-5.2) X10^6/uL Hgb (12.0-16.0) g/dL Hct (36-46) % MCV (80-100) fL MCH (26-34) PG MCHC (30-36) % RDW (11.6-14.8) % Plt Count (150-400) X10^3/uL Neut % (Auto) (50-75) % Lymph % (Auto) (25-40) % Gates % (Auto) (3-14) % Eos % (Auto) (2-4) % Baso % (Auto) (0-2) % Neut # (Auto) (9577-8424) /uL Lymph # (Auto) (9412-1866) /uL Gates # (Auto) (0-900) /uL Eos # (Auto) (0-450) /uL Baso # (Auto) (0-100) /uL PT (10.1-12.7) SECONDS INR (0.9-1.3) Sodium 137 (137-145) mmol/L Potassium 4.3 (3.4-5.1) mmol/L Chloride 95 L (98-107) mmol/L Carbon Dioxide 30 (22-32) mmol/L BUN 10 (7-17) mg/dL Creatinine 0.60 (0.52-1.04) mg/dL Estimated GFR > 60.0 (>60) mL/min BUN/Creatinine Ratio 16.7 (6-22) Glucose 100 (80-110) mg/dL Lactate 1.1 (0.7-2.1) mmol/L Calcium 9.2 (8.4-10.2) mg/dL Magnesium (1.6-2.3) mg/dL Total Bilirubin 1.2 (0.2-1.3) mg/dL AST 35 (14-36) IU/L ALT 17 (9-52) IU/L Alkaline Phosphatase 65 (38-126) U/L Total Creatine Kinase (30-135) U/L CK-MB (CK-2) CK-MB (CK-2) Rel Index Troponin I (0.01-0.034) ng/mL B-Natriuretic Peptide (<100) Total Protein 8.2 (6.3-8.2) g/dL Albumin 4.1 (3.5-5.0) g/dL Globulin 4.1 (1.7-4.1) g/dL Albumin/Globulin Ratio 1.0 (1.0-2.8) Procalcitonin 0.07 (<0.5) ng/mL Urine RBC (0-5/HPF) Urine WBC (0-5/HPF) Ur Squamous Epith Cells (0-5/HPF) Urine Bacteria (None) Ur Culture Indicated? 01/19/19 Range/Units 09:30 WBC (4.5-11.0) X10^3/uL RBC (4.0-5.2) X10^6/uL Hgb (12.0-16.0) g/dL Hct (36-46) % MCV (80-100) fL MCH (26-34) PG MCHC (30-36) % RDW (11.6-14.8) % Plt Count (150-400) X10^3/uL Neut % (Auto) (50-75) % Lymph % (Auto) (25-40) % Gates % (Auto) (3-14) % Eos % (Auto) (2-4) % Baso % (Auto) (0-2) % Neut # (Auto) (3788-6920) /uL Lymph # (Auto) (2673-3350) /uL Gates # (Auto) (0-900) /uL Eos # (Auto) (0-450) /uL Baso # (Auto) (0-100) /uL PT (10.1-12.7) SECONDS INR (0.9-1.3) Sodium (137-145) mmol/L Potassium (3.4-5.1) mmol/L Chloride (98-107) mmol/L Carbon Dioxide (22-32) mmol/L BUN (7-17) mg/dL Creatinine (0.52-1.04) mg/dL Estimated GFR (>60) mL/min BUN/Creatinine Ratio (6-22) Glucose (80-110) mg/dL Lactate (0.7-2.1) mmol/L Calcium (8.4-10.2) mg/dL Magnesium (1.6-2.3) mg/dL Total Bilirubin (0.2-1.3) mg/dL AST (14-36) IU/L ALT (9-52) IU/L Alkaline Phosphatase (38-126) U/L Total Creatine Kinase (30-135) U/L CK-MB (CK-2) CK-MB (CK-2) Rel Index Troponin I (0.01-0.034) ng/mL B-Natriuretic Peptide (<100) Total Protein (6.3-8.2) g/dL Albumin (3.5-5.0) g/dL Globulin (1.7-4.1) g/dL Albumin/Globulin Ratio (1.0-2.8) Procalcitonin (<0.5) ng/mL Urine RBC None seen (0-5/HPF) Urine WBC 5-10/hpf H (0-5/HPF) Ur Squamous Epith Cells 0-1 /hpf (0-5/HPF) Urine Bacteria None seen (None) Ur Culture Indicated? Specimen cultured Urine Dip Bedside Urine Glucose Negative Bedside Urine Bilirubin - Negative Bedside Urine Ketone - Negative Urine Specific [place] 1.015 Bedside Urine Occult Blood - Negative Bedside Urine pH 6.0 Bedside Urine Protein - Negative Bedside Urine Urobilinogen - Negative Bedside Urine Nitrite - Negative Bedside Urine Leukocytes + 70 Esterase Imaging Data Chest x-ray: Radiologist's impression: [place] [address] XRay Report Signed Patient: Sari Mosquera [facility]#: [id number] : 7Acct:[id number] Age/Sex: 83 / FDate of Service: 01/19/19 Loc: ED Accession Number: [id number] Procedure: XR chest 1V Ordering Provider: Sultana Pyle D.O. PROCEDURE: XR CHEST 1V INDICATIONS: sob, wheezing, low O2, swelling in legs, ? CHF TECHNIQUE: One view of the chest was acquired. COMPARISON: [facility], , XR CHEST 2V, 01/14/2019, 16:03. FINDINGS: Surgical changes and devices: A dual lead left-sided AICD. Median sternotomy changes. Lungs and pleura: Coarse reticular pattern in the upper lobes bilaterally indicating fibrotic changes. No new dense consolidations. No pleural effusions or pneumothorax. Mediastinum: Mediastinal contours appear normal. Heart size is mildly enlarged. No significant central venous congestion. Bones and chest wall: No suspicious bony lesions. Overlying soft tissues appear unremarkable. IMPRESSION: 1. Stable interstitial reticular pattern consistent with fibrotic changes and/or underlying emphysema. 2. Mild cardiomegaly, postsurgical changes. No radiographic evidence of significant central venous congestion. Correlate with BNP. Dictated by: Krista Galloway M.D. on 01/19/2019 at 8:34 Approved by: Krista Galloway M.D. on 01/19/2019 at 8:37 ECG Data Attestation: I personally reviewed and interpreted this ECG as follows: Interpretation: AFib rate 83 QRS 88 QTC of 407 nonspecific change. Patient has prior EKG from 01/14/2019 with no major abnormalities in comparison. MDM Narrative Medical decision making narrative: Patient is in atrial fibrillation but this is normal for her, she is supratherapeutic on her Coumadin. She appears to be in CHF, she has a BNP of 900, no obvious pulmonary edema chest x-ray but has some crackles as well some wheezing. She received Lasix which did help but patient continues to require little bit extra oxygen is a normal she has been having quite a bit difficulty ambulating. The rest of her labs do not show major abnormalities spoke with Dr. Wilson who accepts for observation. Discharge Plan Departure Patient Disposition: Admitted as Observation Clinical Impression: Congestive heart failure Discharge Date/Time: 01/19/19 11:55 Interventions: ED Discharge Assessment Last Done: 01/19/19 11:54 Admit Date/Time: 01/19/19 11:14 Admit Provider: Nataly Wilson
[2019-01-19] MEDS: methylPREDNISolone 125 MG/2 ML VIAL IV (08:54)
[2019-01-19] MEDS: ALBUTEROL/IPRATROPIUM 3 ML AMPUL INH (08:54)
[2019-01-19] MEDS: FUROSEMIDE 40 MG/4 ML VIAL IV ×2 (08:54→14:56)
[2019-01-19 08:57] LABS: Add Manual Diff / Slide Review NO; Basophils Absolute Auto 0 /uL (0-100); Basophils Percent Auto 0.1 % (0-2); Eosinophils Absolute Auto 0 /uL (0-450); Eosinophils Percent Auto 0.3 % (2-4); Hematocrit 42.3 % (36-46); Hemoglobin 13.9 g/dL (12.0-16.0); Lymphocytes Absolute Auto 700 /uL (1100-4500); Lymphocytes Percent Auto 6.9 % (25-40); Mean Corpuscular HGB Conc 32.9 % (30-36); Mean Corpuscular Hemoglobin 29.7 PG (26-34); Mean Corpuscular Volume 90.2 fL (80-100); Monocytes Absolute Auto 700 /uL (0-900); Monocytes Percent Auto 7.3 % (3-14); Neutrophils Absolute Auto 8700 /uL (1500-7000); Neutrophils Percent Auto 85.4 % (50-75); Platelet Count 225 X10^3/uL (150-400); Red Blood Cell Count 4.69 X10^6/uL (4.0-5.2); Red Cell Distribution Width 14.4 % (11.6-14.8); White Blood Cell Count 10.2 X10^3/uL (4.5-11.0)
[2019-01-19 09:03] LABS: Creatine Kinase 60 U/L (30-135)
[2019-01-19 09:04] LABS: Alanine Aminotransferase 17 IU/L (9-52); Albumin 4.1 g/dL (3.5-5.0); Alkaline Phosphatase 65 U/L (38-126); Aspartate Aminotransferase 35 IU/L (14-36); BUN Creatinine Ratio 16.7 (6-22); Bilirubin Total 1.2 mg/dL (0.2-1.3); Blood Urea Nitrogen 10 mg/dL (7-17); Calcium 9.2 mg/dL (8.4-10.2); Carbon Dioxide 30 mmol/L (22-32); Chloride 95 mmol/L (98-107); Estimated Glomerular Filt Rate > 60.0 mL/min (>60); Globulin 4.1 g/dL (1.7-4.1); Glucose 100 mg/dL (80-110); Potassium 4.3 mmol/L (3.4-5.1); Sodium 137 mmol/L (137-145); Total Protein 8.2 g/dL (6.3-8.2)
[2019-01-19 09:06] LABS: HEMOLYSIS 51 (0-50)
[2019-01-19 09:15] LABS: Troponin I < 0.012 ng/mL (0.01-0.034)
[2019-01-19 09:19] LABS: Procalcitonin 0.07 ng/mL (<0.5)
[2019-01-19 09:22] LABS: B Type Natriuretic Peptide 926 (<100)
[2019-01-19 09:27] LABS: INR 5.7 (0.9-1.3)
[2019-01-19 09:33] LABS: Lactate (Lactic Acid) 1.1 mmol/L (0.7-2.1)
--- NOTE | 2019-01-19 10:39 | PC.NURSE ---
history of interstitial lung diease and cardiac bypass and a.fib.
--- NOTE | 2019-01-19 12:09 | DI.ECHO.S_ITS ---
[place] +---------+ [facility] +---------+ : : [address] : : : : [id number] : : : : Phone: [phone] Echocardiogram Report + + :Name: LIZA BERNARD Study Date: 01/19/2019 Height: 62 in : :[facility] Weight: 157 lb : : Gender: Female BSA: 1.7 m2 : :: 1935 Age: 83 yrs BP: 113/54 mmHg: :Reason For Study: Congestive Heart Failure : : Performed By: Kalani Biggs : :Referring: KYA JUSTICE : + + Interpretation Summary The left ventricle is normal in size. Left ventricular systolic function is normal without focal wall motion abnormalities. The ejection fraction is estimated to be 65-70%. Flattened septum is consistent with RV pressure/volume overload. Diastolic function could not be accurately assessed due to atrial fibrillation. The right ventricle is mild to moderately dilated. There is a pacemaker lead in the right ventricle. Right ventricular systolic function is mild to moderately reduced. Right ventricular systolic function has decreased since previous exam. The right ventricular systolic pressure is estimated to be at least 60 mmHg based on an estimated right atrial pressure of 3 mm Hg. The left atrium is severely dilated. The right atrium is severely dilated. There is mild to moderate mitral annular calcification. There is mild to moderate mitral regurgitation. There is discrete nodular thickening of the right coronary cusp. The calculated aortic valve area is 1.1 cm2. The peak aortic velocity is 1.9 m/sec. The peak aortic velocity on the previous exam was 1.9 m/sec. There is mild to moderate aortic stenosis. There is severe tricuspid regurgitation. There is mild to moderate pulmonic regurgitation. Procedure: A two-dimensional transthoracic echocardiogram with color flow and Doppler was performed. The study quality was technically adequate. Comparison is made with the echocardiogram of 12-10-14. The patient was in atrial fibrillation with heart rates between 79-96 bpm during the exam. Left Ventricle: The left ventricle is normal in size. Left ventricular wall thickness is mildly increased. Left ventricular systolic function is normal without focal wall motion abnormalities. The ejection fraction is estimated to be 65-70%. Flattened septum is consistent with RV pressure/volume overload. Diastolic function could not be accurately assessed due to atrial fibrillation. Right Ventricle: The right ventricle is mild to moderately dilated. There is a pacemaker lead in the right ventricle. Right ventricular systolic function is mild to moderately reduced. Right ventricular systolic function has decreased since previous exam. Atria: The left atrium is severely dilated. The right atrium is severely dilated. There is a catheter/pacemaker lead seen in the right atrium. The interatrial septum is intact with no evidence for an atrial septal defect. Mitral Valve: The mitral valve leaflets appear mildly thickened, but open well. There is mild to moderate mitral annular calcification. There is mild to moderate mitral regurgitation. Aortic Valve: The aortic valve is trileaflet. There is discrete nodular thickening of the right coronary cusp. There is mild to moderate aortic stenosis. The calculated aortic valve area is 1.1 cm2. The peak aortic velocity is 1.9 m/sec. The peak aortic velocity on the previous exam was 1.9 m/sec. The aortic valve mean gradient is 7 mmHg. Severity ratio is 0.25. No aortic regurgitation is present. Tricuspid Valve: The tricuspid valve leaflets are thin and pliable. There is severe tricuspid regurgitation. The right ventricular systolic pressure is estimated to be at least 60 mmHg based on an estimated right atrial pressure of 3 mm Hg. Pulmonic Valve: The pulmonic valve is not well seen, but is grossly normal. There is mild to moderate pulmonic regurgitation. Great Vessels: The aortic root is normal size. The ascending aorta is at the upper limits of normal in size. The aortic arch is at the upper limits of normal in size. The IVC is of normal diameter and collapses greater than 50% with a sniff. This suggests a low right atrial pressure of 3 mm Hg. Pericardium/ Pleura There is no pericardial effusion. There is no pleural effusion. MMode/2D Measurements & Calculations LVIDd: 3.8 cm LVOT diam: 2.0 cm LVIDs: 1.9 cm Ao root diam: 3.0 cm FS: 48.4 % Aortic Jxn: 2.3 cm EPSS: 0.43 cm asc Aorta Diam: 3.5 cm IVSd: 1.1 cm Ao Arch Diam (Prox Trans): 3.0 cm LVPWd: 0.86 cm LV werner. diameter/BSA (cm/m^2): 2.2 LV sys. diameter/BSA (cm/m^2): 1.1 LA dimension: 4.8 cm RA long axis: 6.1 cm LA A2 area: 31.3 cm2 RA area: 25.5 cm2 LA A4 area: 27.3 cm2 RA vol: 91.0 ml LA length (vol): 6.1 cm RA : 52.7 ml/m2 LA vol: 118.4 ml IVC diam: 2.1 cm LA vol index: 68.6 ml/m2 RVDd major: 6.0 cm RVD1 (basal): 4.3 cm RVD2 (mid): 4.0 cm CONOR (plan): 1.4 cm2 Doppler Measurements & Calculations Ao V2 max: 186.9 cm/sec LVOT Max Frank: 65.9 cm/sec Ao V2 mean: 125.6 cm/sec LV V1 max P.7 mmHg Ao max P.0 mmHg LV V1 VTI: 12.3 cm Ao mean P.3 mmHg CONOR(I,D): 1.1 cm2 Ao V2 VTI: 35.5 cm CONOR(V,D): 1.1 cm2 sev ratio: 0.35 CONOR indexed to BSA (cm^2/m^2): 0.63 MV E max frank: 113.8 cm/sec TR max frank: 377.1 cm/sec MV A max frank: 32.5 cm/sec TR max P.9 mmHg MV E/A: 3.5 PA V2 max: 69.7 cm/sec Med Peak E' Frank: 5.4 cm/sec PA V2 mean: 39.7 cm/sec E/E' med: 21.2 PA mean P.80 mmHg Lat Peak E' Frank: 12.1 cm/sec PA Accel Time: 0.08 sec E/E' lat: 9.4 E/e' average: 15.3 MV dec time: 0.19 sec MV P1/2t: 57.5 msec MV P1/2t max frank: 113.1 cm/sec SV(LVOT): 38.8 ml MVA(P1/2t): 3.8 cm2 Reading Physician:03:45 PM
[2019-01-19 12:13] LABS: Bacteria Urine None Seen; RBC Urine None Seen (0-5/HPF)
[2019-01-19 12:25] LABS: Culture Indicated Urine Specimen Cultured; Squamous Epithelial Cell Urine 0-1 /HPF (0-5/HPF); WBC Urine 5-10/HPF (0-5/HPF)
--- NOTE | 2019-01-19 15:41 | PC.NURSE ---
Patient states she is starting to feel better, vss, 3L NC 93-96%. Crackles at bases noted but appears improved. Patient up to urinate with 1 assist and walker at [facility]. High fall precautions. Tolerated heart healthy diet. Bed alarm on for safety with call light within reach.
[2019-01-19] MEDS: GABAPENTIN 300 MG CAPSULE PO (17:57)
[2019-01-19] MEDS: AMLODIPINE 5 MG TABLET PO (17:57)
[2019-01-19] MEDS: ATORVASTATIN 20 MG TABLET PO (17:57)
[2019-01-19] MEDS: LOSARTAN 50 MG TABLET PO (17:57)
--- NOTE | 2019-01-19 17:59 | P.HP_ITS ---
History of Present Illness Date Patient Seen: 01/19/19 Time Patient Seen: 16:35 Chief complaint: sob Narrative: 83-year-old female with oxygen-dependent interstitial lung disease, Sjogren syndrome, CAD status post CABG, history of TIA, atrial fibrillation with pacemaker on chronic anticoagulation with complaints of increasing shortness of breath for the last 2 weeks. She and her were in [place] visiting friends and upon returning from the trip she developed a cough. She assumed she caught something on the airplane back. She presented to the emergency department on 01/14/19 due to increased shortness of breath. At that time chest x-ray and CT were consistent with her chronic lung disease but without acute pneumonia or pulmonary edema. BNP was slightly elevated and she was treated with Lasix for presumed mild CHF exacerbation though she does not have a history of CHF. Since that time her shortness of breath has increased as has her lower extremity edema. This morning she felt much worse so presented to the emergency department. She has not had fevers recently though may have been a bit warm right after she got back from her trip. Appetite has been decreased since she has also had some diarrhea. Her main complaint is her terrible cough and associated coughing fits. In the emergency department BNP was 926, increased from 388 5 days ago. Chest x-ray did not show significant pulmonary edema however she was given a dose of Lasix in the ER due to hypoxia and lower extremity edema. She would be admitted for further treatment of hypoxia in volume overload. INR was incidentally found to be 5.7. Patient did report some hemoptysis several days ago that has not recurred. At the time of my exam patient reported significant improvement in her shortness of breath and breathing however still complained of severe cough. Denied fevers or chills. She was feeling much improved from this morning. Patient History Medical History 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) Atrial fibrillation (Chronic) CAD (coronary artery disease) (Chronic) Interstitial lung disease (Chronic) Melanoma (Resolved) TIA (transient ischemic attack) (Resolved) Surgical History H/O: section (Resolved) Hx of CABG (Resolved) S/P appendectomy (Resolved) S/P hysterectomy (Resolved) S/P knee replacement (Resolved) Social History marital status: number of children: 2 household members: spouse lives independently: Yes education level: college occupational status: other (retired) Smoking Status: Never smoker alcohol intake: current substance use type: does not use Family & Social History Social History: household members spouse Prior Living Arrangements House lives independently Yes Safety & Behavioral: Feels Safe in Current Yes Environment Been Physically Hurt or No Threatened By a Person Suicidal Ideation Description None Suicide Plan Description No Plan Tobacco & Substance use: Smoking Status Never smoker alcohol intake current alcohol intake frequency holiday/special occasion Substance Use Type does not use Meds Home Medications Medication Instructions Recorded Confirmed Type amlodipine 5 mg tablet 5 mg PO QPM 12/13/17 01/19/19 History atorvastatin 20 mg tablet 20 mg PO QPM 12/13/17 01/19/19 History carvedilol 12.5 mg tablet 12.5 mg PO BID 12/13/17 01/19/19 History furosemide 20 mg tablet 20 mg PO BID 12/13/17 01/19/19 History gabapentin 300 mg capsule 300 mg PO QPM cap 12/13/17 01/19/19 History losartan 50 mg tablet 50 mg PO QPM 12/13/17 01/19/19 History mycophenolate mofetil 500 mg tablet 1,000 mg PO BID 12/13/17 01/19/19 History nitroglycerin 0.4 mg sublingual 0.4 mg SL Q5-15M PRN 12/13/17 01/19/19 History tablet warfarin 4 mg tablet 4 mg PO QPM 12/13/17 01/19/19 History levothyroxine [Synthroid] 50 mcg PO DAILY 06/27/18 01/19/19 History multivitamin 1 tab PO DAILY 06/27/18 01/19/19 History omega 6-eav-nue-fish oil [Fish Oil] 1 cap PO DAILY 06/27/18 01/19/19 History potassium chloride 20 meq PO DAILY 06/27/18 01/19/19 History prednisone 2.5 dose PO DAILY 06/27/18 01/19/19 History aspirin 325 mg tablet 325 mg PO DAILY 07/04/18 01/19/19 History Fish Oil 1 cap PO QAM 01/19/19 01/19/19 History calcium citrate-vitamin D3 1 tab PO DAILY 01/19/19 01/19/19 History [Citracal Regular] krill oil 1 cap PO QPM 01/19/19 01/19/19 History Allergies Allergy/AdvReac Type Severity Reaction Status Date / Time adhesive Allergy Mild RASH/BLISTERS Verified 01/19/19 09:33 PAPER/SIKL TAPE OK Review of Systems Constitutional Constitutional: Reports fatigue and Denies fever(s) Cardiovascular Cardiovascular: Denies chest pain, Reports leg swelling, Reports shortness of breath and Reports shortness of breath with activity Respiratory Respiratory: Reports cough, Reports hemoptysis, Reports dyspnea, Reports dyspnea on exertion and Denies wheezing Gastrointestinal Gastrointestinal: Denies abdominal pain, Reports loose stools, Denies nausea and Denies vomiting Endocrine Endocrine: Reports fatigue Allergic/Immunologic Allergic/Immunologic: Denies wheezing Exam Vital Signs (past 8 hours): - 01/19/19 10:00 01/19/19 10:30 01/19/19 10:40 Temperature Pulse Rate 78 73 71 Respiratory Rate 23 17 21 Blood Pressure Blood Pressure [Right Arm] 126/64 132/69 132/69 Pulse Oximetry 92 95 95 01/19/19 11:00 01/19/19 11:30 01/19/19 11:54 Temperature Pulse Rate 86 76 77 Respiratory Rate 18 21 22 Blood Pressure 139/79 Blood Pressure [Right Arm] 124/61 121/57 L Pulse Oximetry 91 93 94 01/19/19 12:09 01/19/19 15:20 01/19/19 17:57 Temperature 97.9 F 98.9 F Pulse Rate 84 88 88 Respiratory Rate 16 20 Blood Pressure 113/54 L 112/63 112/63 Blood Pressure [Right Arm] Pulse Oximetry 96 94 Oxygen Delivery Method Nasal Cannula Oxygen Flow Rate 3 Narrative Exam Narrative: General: Awake and alert, no acute distress, resting comfortably in bed though did have a severe coughing fit. Speaks in full sentences without difficulty. HEENT: NCAT, EOMI, moist oral mucosa CV: Regular rate and rhythm Lungs: Fine crackles in the bases bilaterally. Diffuse coarse expiratory wheezes throughout. Abdomen: Soft, nontender; bowel tones active; no hepatosplenomegaly Extremities: Warm, trace edema on the right, 1+ edema on the left (patient reports her left leg is always more swollen than her right) Objective Labs Result Diagrams: 01/19/19 08:51 01/19/19 08:52 Labs: Laboratory Results - last 24 hr 01/19/19 01/19/19 01/19/19 08:51 08:52 08:52 WBC 10.2 RBC 4.69 Hgb 13.9 Hct 42.3 MCV 90.2 MCH 29.7 MCHC 32.9 RDW 14.4 Plt Count 225 Neut % (Auto) 85.4 H Lymph % (Auto) 6.9 L [place] % (Auto) 7.3 Eos % (Auto) 0.3 L Baso % (Auto) 0.1 Neut # (Auto) 8700 H Lymph # (Auto) 700 L [place] # (Auto) 700 Eos # (Auto) 0 Baso # (Auto) 0 PT 69.0 H D INR 5.7 H* Sodium Potassium Chloride Carbon Dioxide BUN Creatinine Estimated GFR BUN/Creatinine Ratio Glucose Lactate Calcium Magnesium 2.0 Total Bilirubin AST ALT Alkaline Phosphatase Total Creatine Kinase 60 CK-MB (CK-2) TNP CK-MB (CK-2) Rel Index TNP Troponin I < 0.012 B-Natriuretic Peptide 926 H Total Protein Albumin Globulin Albumin/Globulin Ratio Procalcitonin Urine RBC Urine WBC Ur Squamous Epith Cells Urine Bacteria Ur Culture Indicated? 01/19/19 01/19/19 01/19/19 08:52 08:52 09:05 WBC RBC Hgb Hct MCV MCH MCHC RDW Plt Count Neut % (Auto) Lymph % (Auto) Newberry % (Auto) Eos % (Auto) Baso % (Auto) Neut # (Auto) Lymph # (Auto) [place] # (Auto) Eos # (Auto) Baso # (Auto) PT INR Sodium 137 Potassium 4.3 Chloride 95 L Carbon Dioxide 30 BUN 10 Creatinine 0.60 Estimated GFR > 60.0 BUN/Creatinine Ratio 16.7 Glucose 100 Lactate 1.1 Calcium 9.2 Magnesium Total Bilirubin 1.2 AST 35 ALT 17 Alkaline Phosphatase 65 Total Creatine Kinase CK-MB (CK-2) CK-MB (CK-2) Rel Index Troponin I B-Natriuretic Peptide Total Protein 8.2 Albumin 4.1 Globulin 4.1 Albumin/Globulin Ratio 1.0 Procalcitonin 0.07 Urine RBC Urine WBC Ur Squamous Epith Cells Urine Bacteria Ur Culture Indicated? 01/19/19 09:30 WBC RBC Hgb Hct MCV MCH MCHC RDW Plt Count Neut % (Auto) Lymph % (Auto) [place]berry % (Auto) Eos % (Auto) Baso % (Auto) Neut # (Auto) Lymph # (Auto) [place] # (Auto) Eos # (Auto) Baso # (Auto) PT INR Sodium Potassium Chloride Carbon Dioxide BUN Creatinine Estimated GFR BUN/Creatinine Ratio Glucose Lactate Calcium Magnesium Total Bilirubin AST ALT Alkaline Phosphatase Total Creatine Kinase CK-MB (CK-2) CK-MB (CK-2) Rel Index Troponin I B-Natriuretic Peptide Total Protein Albumin Globulin Albumin/Globulin Ratio Procalcitonin Urine RBC None seen Urine WBC 5-10/hpf H Ur Squamous Epith Cells 0-1 /hpf Urine Bacteria None seen Ur Culture Indicated? Specimen cultured Assessment & Plan (1) Hypoxia: Current visit: Yes Status: Acute (2) Chronic respiratory failure: Current visit: Yes Status: Acute (3) Supratherapeutic INR: Current visit: No Status: Acute (4) Essential hypertension: Current visit: No Status: Chronic (5) Atrial fibrillation: Current visit: No Status: Chronic (6) CAD (coronary artery disease): Problem details: s/p CABG, Dr. Hughes [facility] Cardiology Current visit: No Status: Chronic (7) Interstitial lung disease: Current visit: No Status: Chronic (8) Supplemental oxygen dependent: Current visit: No Status: Chronic (9) Sjogren-Jag syndrome: Problem details: Sees Dr. Montanez, rheumatology Current visit: No Status: Chronic Assessment & Plan narrative: 82-year-old female with CAD s/p CABG, atrial fibrillation with pacemaker on warfarin, history of TIA, interstitial lung disease on 2 liters of oxygen now with worsening hypoxia and shortness of breath. Initial evaluation in the emergency department suggested possible acute congestive heart failure exacerbation. Patient does have a significant cardiac history however no history of CHF. Acute on chronic respiratory failure: Cardiac versus pulmonary in origin. Will update an echocardiogram to evaluate for new congestive heart failure. 40 mg Lasix given in the ER, this was repeated this afternoon with significant improvement in patient's symptoms. May also be a viral triggered exacerbation of her chronic interstitial lung disease. No evidence of pneumonia on chest x- ray. Increase prednisone to 40 mg daily. Albuterol q.4 hours as needed wheezin g or shortness of breath. May need to touch base with her electronic funds transfer coordinator tomorrow depending on how she is doing. Interstitial lung disease: Increasing prednisone as above. Continue mycophenolate. Continue supplemental oxygen as needed. Patient normally uses 2 L at home. Atrial fibrillation with supratherapeutic INR: Hold warfarin, recheck INR tomorrow. Continue carvedilol for rate control. CAD: Continue atorvastatin Hypertension: Continue amlodipine DVT prophylaxis: Supratherapeutic on warfarin Diet: Cardiac diet Code status: Limited code. Patient wishes for a trial of CPR however does not wish to be intubated. POLST up-to-date in chart. Disposition: Anticipate the care of this patient to cross 2 midnights well assessing patient's response to the above therapies. Would like to have her back to her baseline oxygen of 2 L prior to discharge home. Quality VTE Deep Vein Thrombosis/Pulmonary Embolism Present on Admission: No
[2019-01-19] MEDS: predniSONE 20 MG TABLET 40 MG PO (18:00)
[2019-01-19] MEDS: ALBUTEROL 2.5 MG/3 ML NEB (ADULT) INH ×2 (18:01→20:44)
[2019-01-19] MEDS: CARVEDILOL 12.5 MG TABLET PO (21:20)
[2019-01-19] MEDS: GUAIFENESIN/DM 200/20 MG/10 ML UDC PO (21:20)
[2019-01-19] MEDS: MYCOPHENOLATE MOFETIL 500 MG TABLET 1000 MG PO (21:22)
[2019-01-20] VITALS (13 sets, daily range): BP systolic 117–131; BP diastolic 58–73; PULSE 67–87; RESP 13–18; TEMP 36.3–37; O2SAT 92–94
[2019-01-20] MEDS: SODIUM CHLORIDE 0.9% FLUSH 10 ML IV ×3 (00:09→21:34)
[2019-01-20] MEDS: SODIUM CHLORIDE 0.9% 250 ML 21 ML IV (00:09)
[2019-01-20] MEDS: FUROSEMIDE 40 MG/4 ML VIAL IV (00:09)
--- NOTE | 2019-01-20 00:50 | PC.NURSE ---
Addendum entered by Freya Guido R.N. 01/20/19 06:19: Slept soundly most of shift. No coughing heard; 1st dose cough med not given as patient asleep and not easily aroused. At 0500 patient declined cough med but now requesting and noted to have hoarse sounding non productive cough. Denies pain. Original Note: Patient is alert and oriented. Breath sounds with inspiratory crackles throughout posteriorly and expiratory rhonchi throughout anteriorly. SOB at rest and with exertion and needs to have HOB elevated; reports she sleeps in recliner at home and uses 2L/oxygen at all times. Currently on oxygen at 2L/min with sat of 92%. States she has had a cough but none noted since start of shift; has cough med ordered q4h. HR irregular but has hx of afib; telemetry reading was afib CVR. Denies nausea. BT present and abdomen is soft. Denies dysuria, frequency or urgency and is continent of urine. Able to turn self in bed and is up to bathroom with walker and SBA. 2+ bilateral ankle edema; administered IV Lasix as per MD order. Bilateral SCD's applied after getting back into bed. Denies pain. Fall risk score is high as patient had a recent fall; bed alarm is activated. Bruises noted on bilateral UE.
[2019-01-20 05:37] LABS: Add Manual Diff / Slide Review NO; Basophils Absolute Auto 0 /uL (0-100); Basophils Percent Auto 0.1 % (0-2); Eosinophils Absolute Auto 0 /uL (0-450); Hematocrit 37.2 % (36-46); Hemoglobin 12.5 g/dL (12.0-16.0); Lymphocytes Absolute Auto 600 /uL (1100-4500); Lymphocytes Percent Auto 6.9 % (25-40); Mean Corpuscular HGB Conc 33.6 % (30-36); Mean Corpuscular Hemoglobin 29.7 PG (26-34); Mean Corpuscular Volume 88.5 fL (80-100); Monocytes Absolute Auto 200 /uL (0-900); Monocytes Percent Auto 2.1 % (3-14); Neutrophils Absolute Auto 8000 /uL (1500-7000); Neutrophils Percent Auto 90.9 % (50-75); Platelet Count 197 X10^3/uL (150-400); Red Cell Distribution Width 14.1 % (11.6-14.8); White Blood Cell Count 8.8 X10^3/uL (4.5-11.0)
[2019-01-20 05:39] LABS: BUN Creatinine Ratio 21.4 (6-22); Blood Urea Nitrogen 15 mg/dL (7-17); Calcium 8.5 mg/dL (8.4-10.2); Carbon Dioxide 33 mmol/L (22-32); Chloride 95 mmol/L (98-107); Estimated Glomerular Filt Rate > 60.0 mL/min (>60); Glucose 162 mg/dL (80-110); HEMOLYSIS < 15 (0-50); Potassium 3.6 mmol/L (3.4-5.1); Prothrombin Time 59.4 SECONDS (10.1-12.7); Sodium 137 mmol/L (137-145)
[2019-01-20] MEDS: guaiFENesin/DEXTROMETH Syrup 5 ML SYRUP 10 ML PO ×5 (06:15→21:34)
--- NOTE | 2019-01-20 08:32 | PM.PN.1 ---
Subjective Date Patient Seen: 01/20/19 Time Patient Seen: 07:30 Interval history: Patient is pleased to report she feels much better this morning. Albuterol nebulizers and guaifenesin helped her cough significantly. She is back to her usual 2 L. She has not tried to ambulate very far yet. Denies pain. Her diarrhea has resolved and stools are more formed. Exam Vital Signs (past 8 hours): - 01/20/19 04:46 Temperature 97.4 F L Pulse Rate 78 Respiratory Rate 18 Blood Pressure 131/73 Pulse Oximetry 93 Oxygen Delivery Method Nasal Cannula Oxygen Flow Rate 2 Narrative Exam Narrative: General: Awake and alert, no acute distress. Sitting up in bed. Polite and conversational. HEENT: NCAT, EOMI, moist oral mucosa. Nasal cannula in place. CV: Regular rate and rhythm Lungs: Clear to auscultation throughout the right lung. Left lung with expiratory wheezes in the bases. No crackles. Extremities: Warm, trace edema, 2+ pedal pulses bilaterally Objective Labs Result Diagrams: 01/20/19 05:10 01/20/19 05:10 Labs: Laboratory Results - last 24 hr 01/19/19 01/19/19 01/19/19 08:51 08:52 08:52 WBC 10.2 RBC 4.69 Hgb 13.9 Hct 42.3 MCV 90.2 MCH 29.7 MCHC 32.9 RDW 14.4 Plt Count 225 Neut % (Auto) 85.4 H Lymph % (Auto) 6.9 L Norman % (Auto) 7.3 Eos % (Auto) 0.3 L Baso % (Auto) 0.1 Neut # (Auto) 8700 H Lymph # (Auto) 700 L Norman # (Auto) 700 Eos # (Auto) 0 Baso # (Auto) 0 PT 69.0 H D INR 5.7 H* Sodium Potassium Chloride Carbon Dioxide BUN Creatinine Estimated GFR BUN/Creatinine Ratio Glucose Lactate Calcium Magnesium 2.0 Total Bilirubin AST ALT Alkaline Phosphatase Total Creatine Kinase 60 CK-MB (CK-2) TNP CK-MB (CK-2) Rel Index TNP Troponin I < 0.012 B-Natriuretic Peptide 926 H Total Protein Albumin Globulin Albumin/Globulin Ratio Procalcitonin Urine RBC Urine WBC Ur Squamous Epith Cells Urine Bacteria Ur Culture Indicated? 01/19/19 01/19/19 01/19/19 08:52 08:52 09:05 WBC RBC Hgb Hct MCV MCH MCHC RDW Plt Count Neut % (Auto) Lymph % (Auto) Norman % (Auto) Eos % (Auto) Baso % (Auto) Neut # (Auto) Lymph # (Auto) Norman # (Auto) Eos # (Auto) Baso # (Auto) PT INR Sodium 137 Potassium 4.3 Chloride 95 L Carbon Dioxide 30 BUN 10 Creatinine 0.60 Estimated GFR > 60.0 BUN/Creatinine Ratio 16.7 Glucose 100 Lactate 1.1 Calcium 9.2 Magnesium Total Bilirubin 1.2 AST 35 ALT 17 Alkaline Phosphatase 65 Total Creatine Kinase CK-MB (CK-2) CK-MB (CK-2) Rel Index Troponin I B-Natriuretic Peptide Total Protein 8.2 Albumin 4.1 Globulin 4.1 Albumin/Globulin Ratio 1.0 Procalcitonin 0.07 Urine RBC Urine WBC Ur Squamous Epith Cells Urine Bacteria Ur Culture Indicated? 01/19/19 01/20/19 01/20/19 09:30 05:10 05:10 WBC 8.8 RBC 4.20 Hgb 12.5 Hct 37.2 MCV 88.5 MCH 29.7 MCHC 33.6 RDW 14.1 Plt Count 197 Neut % (Auto) 90.9 H Lymph % (Auto) 6.9 L Norman % (Auto) 2.1 L Eos % (Auto) 0.0 L Baso % (Auto) 0.1 Neut # (Auto) 8000 H Lymph # (Auto) 600 L Norman # (Auto) 200 Eos # (Auto) 0 Baso # (Auto) 0 PT 59.4 H D INR 5.0 H* Sodium Potassium Chloride Carbon Dioxide BUN Creatinine Estimated GFR BUN/Creatinine Ratio Glucose Lactate Calcium Magnesium Total Bilirubin AST ALT Alkaline Phosphatase Total Creatine Kinase CK-MB (CK-2) CK-MB (CK-2) Rel Index Troponin I B-Natriuretic Peptide Total Protein Albumin Globulin Albumin/Globulin Ratio Procalcitonin Urine RBC None seen Urine WBC 5-10/hpf H Ur Squamous Epith Cells 0-1 /hpf Urine Bacteria None seen Ur Culture Indicated? Specimen cultured 01/20/19 05:10 WBC RBC Hgb Hct MCV MCH MCHC RDW Plt Count Neut % (Auto) Lymph % (Auto) Norman % (Auto) Eos % (Auto) Baso % (Auto) Neut # (Auto) Lymph # (Auto) Norman # (Auto) Eos # (Auto) Baso # (Auto) PT INR Sodium 137 Potassium 3.6 Chloride 95 L Carbon Dioxide 33 H BUN 15 Creatinine 0.70 Estimated GFR > 60.0 BUN/Creatinine Ratio 21.4 Glucose 162 H Lactate Calcium 8.5 Magnesium Total Bilirubin AST ALT Alkaline Phosphatase Total Creatine Kinase CK-MB (CK-2) CK-MB (CK-2) Rel Index Troponin I B-Natriuretic Peptide Total Protein Albumin Globulin Albumin/Globulin Ratio Procalcitonin Urine RBC Urine WBC Ur Squamous Epith Cells Urine Bacteria Ur Culture Indicated? Assessment & Plan (1) Hypoxia: Current visit: Yes Status: Acute (2) Chronic respiratory failure: Current visit: Yes Status: Acute (3) Essential hypertension: Current visit: No Status: Chronic (4) Supratherapeutic INR: Current visit: No Status: Acute (5) Atrial fibrillation: Current visit: No Status: Chronic (6) CAD (coronary artery disease): Problem details: s/p CABG, Dr. Hughes [facility] Cardiology Current visit: No Status: Chronic (7) Interstitial lung disease: Current visit: No Status: Chronic (8) Supplemental oxygen dependent: Current visit: No Status: Chronic Assessment & Plan narrative: Acute on chronic respiratory failure: Symptomatically and objectively improved today after Lasix, prednisone and albuterol yesterday. She is back to her usual 2 L of oxygen at rest. Echo in August of this year showed normal left ventricular ejection fraction with moderately dilated right ventricle and reduced right ventricular systolic function as well as aortic valve stenosis. Echo yesterday showed preserved left ventricular EF but also with dilation of the right ventricle and reduced right ventricular systolic function as well as evidence of volume overload. It appears that right ventricular function has decreased since her last echo which is likely the source of her volume overload this admission. Most recent echo also shows severe dilation of the left and right atria which is worse compared to prior. Will need to update her tractor operator with the new findings. Will continue with Lasix 20 mg IV twice today then transition to oral Lasix tomorrow. Interstitial lung disease: Continue prednisone 40 mg for 5 days. Continue supplemental oxygen. Atrial fibrillation with supratherapeutic INR: Hold warfarin, recheck INR tomorrow. Continue carvedilol for rate control. CAD: Continue atorvastatin Hypertension: Continue amlodipine DVT prophylaxis: Supratherapeutic on warfarin Diet: Cardiac diet Code status: Limited code. Patient wishes for a trial of CPR however does not wish to be intubated. POLST up-to-date in chart. Disposition: Anticipate discharge home tomorrow if patient does well with ambulation trial on oxygen today. Quality VTE Deep Vein Thrombosis/Pulmonary Embolism Present on Admission: No
[2019-01-20] MEDS: CARVEDILOL 12.5 MG TABLET PO ×2 (09:10→21:34)
[2019-01-20] MEDS: MYCOPHENOLATE MOFETIL 500 MG TABLET 1000 MG PO ×2 (09:11→21:34)
[2019-01-20] MEDS: POTASSIUM CHLORIDE 20 MEQ TAB PO (09:11)
[2019-01-20] MEDS: LEVOTHYROXINE 50 MCG TABLET PO (09:11)
[2019-01-20] MEDS: predniSONE 20 MG TABLET 40 MG PO (09:11)
[2019-01-20] MEDS: FUROSEMIDE 40 MG/4 ML VIAL 20 MG IV (09:13)
--- NOTE | 2019-01-20 10:06 | PC.NURSE ---
Addendum entered by Patricia Bay R.N. 01/20/19 14:48: Ambulated halls with SPORTS JOURNALIST after lunch (patient initiated and asked to go walking). Maintained sats on 2L O2. Given cough medicine as ordered. Napping in chair at this time. Light in reach, chair alarm on. Original Note: Shift summary: Awake and alert, oriented X3. Reports shortness of breath with exertion, but that overall her breathing is not too bad today. Ambulated in the halls with PT this morning and seemed to recover quite well. SpO2 on 2L 94%. Lungs clear anterior and R, inspiratory and expiratory wheezes on the L. HR irregular to auscultation, known Hx A-fib, on tele. No notable edema, patient reports that her legs were swollen and are looking much better. Dose of IV Lasix running now on the pump. Patient resting quietly in bed at this time. Denies needs now, calls appropriately. Light in reach, bed alarm on.
--- NOTE | 2019-01-20 16:04 | CM.DANOTE ---
Discharge Planning/Care Management DCP: assessment: case received, EMR reviewed and met with pt and her Pat. Introduced self and role. Pt is an 83 year old who admitted yesterday to care of her PCP: Dr. Wilson. 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 Pt says she is hopeful that Dr. Wilson will ok her for home tomorrow. She has had HH in past, after her CABG a few years ago and again after knee surgeries. She had HH home safely evals during those times. She is currently not homebound, both she and her drive. P: home when stable for same. Dr. Wilson indicates in her notes that she may confer with pt's instructional technology instructor as part of POC. DCP team will be following. CM Discharge Assessment Start: 01/20/19 15:50 Freq: Status: Active Protocol: Document 01/20/19 15:50 ITV (Rec: 01/20/19 16:04 [id number]) Discharge Planning Assessment Advance Directives? Yes History Provided By Patient Family Member Medical Record Has Patient been admitted in last 30 No days? Prior Living Arrangements House Household Members spouse Type of transporation used prior to Drives own vehicle admit Independent with ADL's Yes: uses [employer]WW sometimes and 24 /7 o2 Is patient alert and oriented? Yes Caregiver for Another No DME Already Rented / Owned FWW / Walker Oxygen Comment oxygen: vendor: [employer] also has own portable o2 Whiteboard Updated in Patient Room with Yes name and ext. # of Pre Kindergarten Teacher Review Status In Process Discharge Planning/Care Management Discharge Assessment Start: 01/20/19 15:50 Freq: Status: Active Protocol: Document 01/20/19 15:50 ITV (Rec: 01/20/19 16:04 [email or web address] [email or web address]) Discharge Planning Assessment Advance Directives? Yes History Provided By Patient Family Member Medical Record Has Patient been admitted in last 30 No days? Prior Living Arrangements House Household Members spouse Type of transporation used prior to Drives own vehicle admit Independent with ADL's Yes: uses FWW sometimes and 24 /7 o2 Is patient alert and oriented? Yes Caregiver for Another No DME Already Rented / Owned FWW / Walker Oxygen Comment oxygen: vendor: [employer] also has own portable o2 Whiteboard Updated in Patient Room with Yes name and ext. # of Pre Kindergarten Teacher Review Status In Process
[2019-01-20] MEDS: AMLODIPINE 5 MG TABLET PO (17:57)
[2019-01-20] MEDS: GABAPENTIN 300 MG CAPSULE PO (17:57)
[2019-01-20] MEDS: ATORVASTATIN 20 MG TABLET PO (17:57)
[2019-01-20] MEDS: LOSARTAN 50 MG TABLET PO (17:58)
--- NOTE | 2019-01-20 23:00 | PC.NURSE ---
Shift summary- Pt up to chair x3, remains in chair at end of shift. Productive cough, 92-94% 2Lnc, LS right side mid and base exp ronchi, Lt base course, exp ronchi, right side mid and base with exp ronchi. BLE puffyness. Tele; A-fib x2, Hx chronic A-fib. [facility] SL. [id number]- pt reports rossana redd explained to this business writer having nightmares and making funny noises in throat, which wake pt up. It is somewhat scary. this business writer informed pt possibly the increase in prednisone might be the cause, this med can cause this to happen, and this is not uncommon, and to let staff know each time it happens. pt went from solu med 125mg iv and prednisone 2.5mg PO, to 40mg prednisone PO. Pt did report earlier she is feeling much better. CABRERA MONTEMAYOR.
[2019-01-21] VITALS (14 sets, daily range): BP systolic 99–126; BP diastolic 60–86; PULSE 73–87; RESP 16–24; TEMP 36.3–37.1; O2SAT 93–97
[2019-01-21] MEDS: FUROSEMIDE 40 MG/4 ML VIAL 20 MG IV ×2 (00:47→11:48)
[2019-01-21] MEDS: SODIUM CHLORIDE 0.9% FLUSH 10 ML IV ×3 (00:47→22:19)
[2019-01-21] MEDS: guaiFENesin/DEXTROMETH Syrup 5 ML SYRUP 10 ML PO ×6 (00:47→22:18)
[2019-01-21 05:56] LABS: Prothrombin Time 46.9 SECONDS (10.1-12.7)
[2019-01-21 06:02] LABS: Blood Urea Nitrogen 15 mg/dL (7-17); Calcium 8.3 mg/dL (8.4-10.2); Carbon Dioxide 34 mmol/L (22-32); Chloride 97 mmol/L (98-107); Estimated Glomerular Filt Rate > 60.0 mL/min (>60); Glucose 135 mg/dL (80-110); HEMOLYSIS < 15 (0-50); Potassium 3.7 mmol/L (3.4-5.1); Sodium 136 mmol/L (137-145)
--- NOTE | 2019-01-21 06:40 | PC.NURSE ---
Assumed care of pt at 2300 on 01/20/19. Pt sleeping in chair during bedside hand-off. Awakens to voice. Denies pain, dizziness or sob. 2L NC as per home routine, Sats 94%. Noted coughing spirt at approx 0500. Throat lozenge administered. Pt spent the night in the recliner. SCD's on. Chair alarm on. At approx 0630 pt requests neb treatment; R.T. Notified.
[2019-01-21] MEDS: ALBUTEROL 2.5 MG/3 ML NEB (ADULT) INH ×3 (07:30→16:00)
--- NOTE | 2019-01-21 08:08 | DI.RAD.S_ITS ---
PROCEDURE: XR CHEST 2V INDICATIONS: increased crackles/wheezing TECHNIQUE: 2 views of the chest were acquired. COMPARISON: [facility], CR, XR CHEST 1V, 01/19/2019, 9:13. [facility], CR, XR CHEST 2V, 01/14/2019, 16:03. FINDINGS: Surgical changes and devices: Sternotomy wires, presumed prior CABG, pacemaking device with dual chamber leads Lungs and pleura: Lungs are chronically abnormal with a chronic interstitial prominence with possible superimposed chronic CHF pattern.. No pleural effusions or pneumothorax. Mediastinum: Mediastinal contours are normal. Heart size is globally enlarged, chronically. Bones and chest wall: No suspicious bony abnormalities. Soft tissues appear unremarkable. IMPRESSION: Chronic CHF pattern, global cardiomegaly that has not changed appreciably over the prior several examinations considering differences in inspiratory volume. A pacemaking device, dual-chamber leads, sternotomy wires, presumed prior CABG. Dictated by: Jarred Wilder M.D. on 01/21/2019 at 8:57 Approved by: Jarred Wilder M.D. on 01/21/2019 at 8:58
[2019-01-21 08:55] LABS: B Type Natriuretic Peptide 586 (<100)
[2019-01-21] MEDS: MYCOPHENOLATE MOFETIL 500 MG TABLET 1000 MG PO ×2 (09:42→22:18)
[2019-01-21] MEDS: predniSONE 20 MG TABLET 40 MG PO (09:42)
[2019-01-21] MEDS: LEVOTHYROXINE 50 MCG TABLET PO (09:42)
[2019-01-21] MEDS: POTASSIUM CHLORIDE 20 MEQ TAB PO (09:43)
[2019-01-21] MEDS: CARVEDILOL 12.5 MG TABLET PO ×2 (09:43→22:18)
--- NOTE | 2019-01-21 10:13 | PT.IIE ---
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 (01/19/19) Hypoxemia (01/19/19) Abnormal coagulation profile (01/19/19) Dependence on supplemental oxygen (01/19/19) Surgical History (Last Reviewed 01/19/19 @ 18:07 by Nataly Wilson DO) H/O: section (Resolved) Hx of CABG (Resolved) S/P appendectomy (Resolved) S/P hysterectomy (Resolved) S/P knee replacement (Resolved) Medical History (Last Reviewed 01/19/19 @ 18:07 by Nataly Wilson DO) 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) Atrial fibrillation (Chronic) CAD (coronary artery disease) (Chronic) Interstitial lung disease (Chronic) Melanoma (Resolved) TIA (transient ischemic attack) (Resolved) Physical Therapy Inpatient Evaluation/Re-Eval M1 PT/OT-IP Prior Functional Status Start: 01/20/19 13:48 Freq: NEEDED Status: Active Protocol: Document 01/20/19 13:48 AR (Rec: 01/20/19 14:31 AR [email or web address]) Medical Review Prior Functional Status Medical History Reviewed Yes Communication WNL Mobility and Gait Prior to admission, pt was not using any AD for amb. Was able to amb short distances ( car to entrance of grocery store) before needing to take a break d/t SOB. Pt was also able to ascend 15 steps to second floor of home. Activities of Daily Living and IADL's Pt is indep with toileting. Further questioning needed regarding other ADLs. Prior Functional Level (Other details) Pt reports being moderatley active prior to admission. Social History Household Members spouse Living Arrangements House Number of Floors (Floors) Two Floors Number of Stairs To Enter/Railing? 2 steps to enter, 15 steps to second floor Home Environment Tub/Shower Home Equipment Grab Bars In Shower Employment Status Retired M2 PT-IP Current Condition Start: 01/20/19 13:48 Freq: NEEDED Status: Active Protocol: Document 01/20/19 13:48 AR (Rec: 01/20/19 14:31 AR [email or web address]) Physical Therapy Current Condition Current Condition Evaluation Date 01/20/19 Treatment Diagnosis Difficulty with walking, acute respiratory failure Weight Bearing Status Weight Bearing Status Full Weight Bearing M3 PT-IP Subjective Start: 01/20/19 13:48 Freq: NEEDED Status: Active Protocol: Document 01/20/19 13:48 AR (Rec: 01/20/19 14:31 AR [email or web address]) Subjective Physical Therapy Visit Type Type Initial Evaluation Visit Start Time 09:10 Visit Stop Time 09:42 Total Visit Minutes 32 Notes Pt reports catching a bug on a flight home from [place], which exacerbated her SOB. She reports consistently using 2L O2 at home. 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 Visits 0 Therapy Pain Assessment Pain Present Pain Present Denied Pain M4 PT-IP Mobility and Gait Start: 01/20/19 13:48 Freq: NEEDED Status: Active Protocol: Document 01/20/19 13:48 AR (Rec: 01/20/19 14:31 AR [email or web address]) PT-Bed Mobility Assessment Rolling Type of Rolling Log Rolling Roll to Left Level of Assist Independent Supine to Sit Supine to Sit Independent Sit to Supine Sit to Supine Independent Scooting Scooting to Edge of Bed Independent Scooting Up and Down in Bed Independent PT-Transfer Assessment Sit to and From Stand Sit to and from Stand Independent Comments Mobility Comments Pt was indep with bed mobility and did not report any SOB with it. Pt did have some wet coughing after movement in bed . Gait Assessment Gait Gait Assistance Required: Standby Assistance Distance (Feet) 400 Able to Maintain Weight Bearing Status Yes During Gait Assistive Devices Assistive Device Front Wheeled Walker Orthotic/Prosthetic Devices or Brace: No Gait Deviations General Gait Pattern Within Normal Limits Factors Limiting Gait Function Factors Limiting Gait Function Respiratory Distress Comments Gait Comments Before walking, O2 sat was 94 during sitting. After about 100 feet amb, O2 sat dec to 89 . Pt was instructed to perform pursed lip breathing and O2 levels inc back to 91. O2 levels dec a few more times throughout amb (lowest of 87) but inc after rest breaks. Pt' s gait pattern was WNL and pt was able to navigate obstacles in the hallway. Stair Climbing Assessment Comments Stair Climbing Comments not assessed PT-Balance Assessment Sitting Balance and Reactions Static Sitting Balance Ability Normal Standing Balance and Reactions Static Standing Balance Ability Normal Dynamic Standing Balance Ability Normal Device Used FWW Comments Other Balance Tests/Deviations/Treatment Pt was able to maintain : standing balance c feet apart, w/o use of FWW. M5 PT-IP Objective Assessments Start: 01/20/19 13:48 Freq: NEEDED Status: Active Protocol: Document 01/20/19 13:48 AR (Rec: 01/20/19 14:31 AR [email or web address]) Orientation Orientation/Cognition Level of Alertness Alert Language Function Ability No Deficits Noted Safety Awareness Understands Safety Issues Memory Description No Deficits Noted Strength Lower Extremity Strength Assessment Within Functional Limits M6 PT-IP Treatment Start: 01/20/19 13:48 Freq: NEEDED Status: Active Protocol: Document 01/20/19 13:48 AR (Rec: 01/20/19 14:31 AR [email or web address]) Physical Therapy Treatment Education Education Provided Safety Equipment Issued Equipment Type and Company Pulsoximeter. Pt was educated on monitoring O2 sat and pursed lip breathing technique . M7 PT-IP Assessment and Plan Start: 01/20/19 13:48 Freq: NEEDED Status: Active Protocol: Document 01/20/19 13:48 AR (Rec: 01/20/19 14:31 AR [email or web address]) PT Summary Assessment and Plan Potential Rehabilitation Potential Good Status of Condition at Evaluation Stable Summary Impairments Activity Tolerance Progress Towards Goals Progressing Toward Goals Assessment Summary Pt reported being aware of her limitations and importance of rest breaks during amb, but required some cueing to take rest breaks and maintain a safe O2 sat level during activity. Pt will benefit from skilled PT to monitor oxygen levels during activity. Goals Gait Goal Independent Gait Distance 250 feet w/o O2 desaturation below 90. Other Goals 1. Pt will consistently be aware of desaturation below 90 and take a rest break to perform pursed lip breathing. 2. Pt will be able to ascend/ descend 2 stairs w/o rail and 13 w rail SBA. Days to Meet Goals 4 Frequency of Treatment Frequency Of Treatment Once a Day Treatment Plan Physical Therapy Treatment Plan Gait Training Therapeutic Exercise Balance Retraining Discharge Planning Other Recommendations and Next Treatment stairs Focus Recommendations To Nursing Amount of Assist Needed Standby Assistance Discharge Recommendations PT Discharge Recommendations Home Outpatient PT Other Discharge Recommendations Possible cardiopulmonary rehab if pt appropriate
--- NOTE | 2019-01-21 13:12 | P.PN_ITS ---
Subjective Date Patient Seen: 01/21/19 Time Patient Seen: 07:45 Interval history: Patient had a difficult night. She was awake quite a bit coughing. This morning she feels more short of breath and has increased crackles. Lower extremity edema is gone. Yesterday she was quite encouraged as she ambulated well with physical therapy on her usual oxygen. Denies fevers or chills. Exam Vital Signs (past 8 hours): - 01/21/19 07:30 01/21/19 07:37 01/21/19 11:25 Temperature 97.7 F 98.4 F Pulse Rate 85 73 78 Respiratory Rate 24 20 16 Blood Pressure 126/86 99/60 Pulse Oximetry 95 94 95 01/21/19 11:43 01/21/19 11:46 Temperature Pulse Rate 84 Respiratory Rate 18 Blood Pressure Pulse Oximetry 94 94 Oxygen Delivery Method Nasal Cannula Oxygen Flow Rate 2 Narrative Exam Narrative: General: Awake and alert, no acute distress. Sitting up in bed, appears comfortable. HEENT: NCAT, EOMI, moist oral mucosa CV: Regular rate and rhythm Lungs: Fine crackles at the bases bilaterally, coarse expiratory wheezes throughout both lung banks. Abdomen: Soft, nontender; bowel tones active; no hepatosplenomegaly Extremities: Warm, no edema, 2+ pedal pulses bilaterally Objective Labs Result Diagrams: 01/20/19 05:10 01/21/19 05:30 Labs: Laboratory Results - last 24 hr 01/21/19 01/21/19 01/21/19 05:30 05:30 05:30 PT 46.9 H D INR 4.0 H Sodium 136 L Potassium 3.7 Chloride 97 L Carbon Dioxide 34 H BUN 15 Creatinine 0.60 Estimated GFR > 60.0 BUN/Creatinine Ratio 25.0 H Glucose 135 H Calcium 8.3 L B-Natriuretic Peptide 586 H Assessment & Plan (1) Acute heart failure with preserved ejection fraction (HFpEF): Current visit: Yes Status: Acute (2) Hypoxia: Current visit: Yes Status: Deleted (3) Chronic respiratory failure: Current visit: Yes Status: Acute (4) Supratherapeutic INR: Current visit: No Status: Acute (5) Essential hypertension: Current visit: No Status: Chronic (6) Atrial fibrillation: Current visit: No Status: Chronic (7) CAD (coronary artery disease): Problem details: s/p CABG, Dr. [facility] Current visit: No Status: Chronic (8) Interstitial lung disease: Current visit: No Status: Chronic (9) Supplemental oxygen dependent: Current visit: No Status: Chronic (10) Sjogren-Jag syndrome: Problem details: Sees Dr. Montanez, rheumatology Current visit: No Status: Chronic Assessment & Plan narrative: Acute heart failure with preserved ejection fraction secondary to interstitial lung disease: Clinical picture is most consistent with heart failure with improvement after diuresis. Explained to patient and family that her chronic lung disease stresses her heart in such a way that she develops a heart failure type picture with preserved ejection fraction. Echo reviewed with family yesterday and answered all questions. She hopefully will be able to transition back to oral furosemide tomorrow. Chest x- ray this morning did not show new pneumonia or acute findings. Interstitial lung disease: Continue prednisone 40 mg for a total of 5 days then decrease back to usual 2.5 mg. Continue supplemental oxygen, she is now at her baseline oxygen needs. Continue albuterol nebulizers as needed. Interstitial lung disease: Continue prednisone 40 mg for 5 days. Continue supplemental oxygen. Atrial fibrillation with supratherapeutic INR: Hold warfarin, recheck INR tomorrow. Continue carvedilol for rate control. CAD: Continue atorvastatin Hypertension: Continue amlodipine DVT prophylaxis: Supratherapeutic on warfarin Diet: Cardiac diet Code status: Limited code. Patient wishes for a trial of CPR however does not wish to be intubated. POLST up-to-date in chart. Disposition: Anticipate discharge home tomorrow. Will need close follow-up of her INR after resumption of warfarin. Quality VTE Deep Vein Thrombosis/Pulmonary Embolism Present on Admission: No
--- NOTE | 2019-01-21 14:40 | PT.IPTN ---
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 (01/19/19) Hypoxemia (01/19/19) Abnormal coagulation profile (01/19/19) Dependence on supplemental oxygen (01/19/19) Physical Therapy Treatment Note M2 PT-IP Current Condition Start: 01/20/19 13:48 Freq: NEEDED Status: Active Protocol: Document 01/20/19 13:48 AR (Rec: 01/20/19 14:31 AR [email or web address]) Physical Therapy Current Condition Current Condition Evaluation Date 01/20/19 Treatment Diagnosis Difficulty with walking, acute respiratory failure Weight Bearing Status Weight Bearing Status Full Weight Bearing M3 PT-IP Subjective Start: 01/20/19 13:48 Freq: NEEDED Status: Active Protocol: Document 01/21/19 15:00 GGD (Rec: 01/21/19 16:01 GGD [id number]) Subjective Physical Therapy Visit Type Type Treatment Note Visit Start Time 14:40 Visit Stop Time 15:00 Total Visit Minutes 20 Number of [employer] Visits 1 M4 PT-IP Mobility and Gait Start: 01/20/19 13:48 Freq: NEEDED Status: Active Protocol: Document 01/21/19 15:00 GGD (Rec: 01/21/19 16:01 GGD [id number]) PT-Bed Mobility Assessment Scooting Scooting to Edge of Bed Independent PT-Transfer Assessment Sit to and From Stand Sit to and from Stand Independent Equipment Transfer Assistive Device Gait Belt Transfers Transfer Destination Chair Transfer Ability Level of Assist Contact Guard Assistance Gait Assessment Gait Gait Assistance Required: Standby Assistance Contact Guard Assist Distance (Feet) 350 Able to Maintain Weight Bearing Status Yes During Gait Assistive Devices Assistive Device None Gait Belt Orthotic/Prosthetic Devices or Brace: No Gait Deviations General Gait Pattern Within Normal Limits Factors Limiting Gait Function Factors Limiting Gait Function Respiratory Distress Comments Gait Comments O2 sat at rest 91% on 2L. with activity 88-89% Stair Climbing Assessment Evaluation Level of Assist On Stairs Standby Assistance Devices Stair Climbing Assistive Devices Left Railing Right Railing Technique/Endurance Stair Climbing Direction Ascend and Descend Stair Climbing Technique Step to Step Number of Steps Climbed 3 Stair Climbing Set # Repetitions (reps) 1 M5 PT-IP Objective Assessments Start: 01/20/19 13:48 Freq: NEEDED Status: Active Protocol: Document 01/20/19 13:48 AR (Rec: 01/20/19 14:31 AR [email or web address]) Orientation Orientation/Cognition Level of Alertness Alert Language Function Ability No Deficits Noted Safety Awareness Understands Safety Issues Memory Description No Deficits Noted Strength Lower Extremity Strength Assessment Within Functional Limits M6 PT-IP Treatment Start: 01/20/19 13:48 Freq: NEEDED Status: Active Protocol: Document 01/20/19 13:48 AR (Rec: 01/20/19 14:31 AR [email or web address]) Physical Therapy Treatment Education Education Provided Safety Equipment Issued Equipment Type and Company Pulsoximeter. Pt was educated on monitoring O2 sat and pursed lip breathing technique . M7 PT-IP Assessment and Plan Start: 01/20/19 13:48 Freq: NEEDED Status: Active Protocol: Document 01/21/19 15:00 GGD (Rec: 01/21/19 16:01 GGD [id number]) PT Summary Assessment and Plan Summary Assessment Summary Pt improving slowly with mobility. She did need standing rest breaks during gait. She was safe with stair mobility. She had improved stability with gait without AD . Pt need increase in stair mobility before D/C home. Frequency of Treatment Frequency Of Treatment Once a Day Treatment Plan Physical Therapy Treatment Plan Gait Training Therapeutic Exercise Balance Retraining Discharge Planning Other Recommendations and Next Treatment stairs Focus Recommendations To Nursing Amount of Assist Needed Standby Assistance Discharge Recommendations PT Discharge Recommendations Home Outpatient PT
[2019-01-21] MEDS: ATORVASTATIN 20 MG TABLET PO (17:55)
[2019-01-21] MEDS: AMLODIPINE 5 MG TABLET PO (17:55)
[2019-01-21] MEDS: GABAPENTIN 300 MG CAPSULE PO (17:55)
[2019-01-21] MEDS: LOSARTAN 50 MG TABLET PO (17:56)
[2019-01-21] MEDS: FUROSEMIDE 20 MG/2 ML VIAL IV (18:02)
[2019-01-22] VITALS (14 sets, daily range): BP systolic 103–138; BP diastolic 53–77; PULSE 74–97; RESP 16–20; TEMP 36.4–37; O2SAT 92–95
[2019-01-22] MEDS: guaiFENesin/DEXTROMETH Syrup 5 ML SYRUP 10 ML PO ×6 (00:43→21:56)
[2019-01-22 05:56] LABS: INR 2.7 (0.9-1.3); Prothrombin Time 31.8 SECONDS (10.1-12.7)
[2019-01-22 05:59] LABS: Hematocrit 36.2 % (36-46); Hemoglobin 11.7 g/dL (12.0-16.0); Mean Corpuscular HGB Conc 32.2 % (30-36); Mean Corpuscular Hemoglobin 29.2 PG (26-34); Mean Corpuscular Volume 90.6 fL (80-100); Platelet Count 240 X10^3/uL (150-400); Red Blood Cell Count 3.99 X10^6/uL (4.0-5.2); White Blood Cell Count 13.9 X10^3/uL (4.5-11.0)
[2019-01-22 06:03] LABS: BUN Creatinine Ratio 26.7 (6-22); Blood Urea Nitrogen 16 mg/dL (7-17); Calcium 8.3 mg/dL (8.4-10.2); Carbon Dioxide 36 mmol/L (22-32); Chloride 96 mmol/L (98-107); Estimated Glomerular Filt Rate > 60.0 mL/min (>60); Glucose 111 mg/dL (80-110); HEMOLYSIS < 15 (0-50); Potassium 3.7 mmol/L (3.4-5.1); Sodium 136 mmol/L (137-145)
[2019-01-22] MEDS: SODIUM CHLORIDE 0.9% FLUSH 10 ML IV ×3 (06:10→21:56)
[2019-01-22] MEDS: FUROSEMIDE 20 MG/2 ML VIAL IV ×2 (06:11→17:04)
--- NOTE | 2019-01-22 06:27 | PC.NURSE ---
Denies any pain, CP & other discomfort. Reports feel a lot better, I should be able to go home today. NO C/O SOB & no dyspnea noted with exertion 2 liters / SPO2 92-94%, will monitor.
[2019-01-22] MEDS: LEVOTHYROXINE 50 MCG TABLET PO (08:05)
[2019-01-22] MEDS: predniSONE 20 MG TABLET 40 MG PO (08:07)
[2019-01-22] MEDS: POTASSIUM CHLORIDE 20 MEQ TAB PO (08:07)
[2019-01-22] MEDS: MYCOPHENOLATE MOFETIL 500 MG TABLET 1000 MG PO ×2 (08:07→21:56)
[2019-01-22] MEDS: CARVEDILOL 12.5 MG TABLET PO ×2 (08:08→21:56)
--- NOTE | 2019-01-22 08:41 | P.DS_ITS ---
History of Present Illness Date Patient Seen: 01/23/19 Time Patient Seen: 07:57 Chief complaint: sob Narrative: From 01/19/[address] H[address] Wilson 83-year-old female with oxygen-dependent interstitial lung disease, Sjogren syndrome, CAD status post CABG, history of TIA, atrial fibrillation with pacemaker on chronic anticoagulation with complaints of increasing shortness of breath for the last 2 weeks. She and her were in [place] visiting friends and upon returning from the trip she developed a cough. She assumed she caught something on the airplane back. She presented to the emergency department on 01/14/19 due to increased shortness of breath. At that time chest x-ray and CT were consistent with her chronic lung disease but without acute pneumonia or pulmonary edema. BNP was slightly elevated and she was treated with Lasix for presumed mild CHF exacerbation though she does not have a history of CHF. Since that time her shortness of breath has increased as has her lower extremity edema. This morning she felt much worse so presented to the emergency department. She has not had fevers recently though may have been a bit warm right after she got back from her trip. Appetite has been decreased since she has also had some diarrhea. Her main complaint is her terrible cough and associated coughing fits. In the emergency department BNP was 926, increased from 388 5 days ago. Chest x-ray did not show significant pulmonary edema however she was given a dose of Lasix in the ER due to hypoxia and lower extremity edema. She would be admitted for further treatment of hypoxia in volume overload. INR was incidentally found to be 5.7. Patient did report some hemoptysis several days ago that has not recurred. At the time of my exam patient reported significant improvement in her shortness of breath and breathing however still complained of severe cough. Denied fevers or chills. She was feeling much improved from this morning. Discharge Providers Date of admission: 01/19/19 11:14 Discharge Date: 01/23/19 Primary care physician: Nataly Wilson DO Consults: 01/19/19 08:47 Consult to Respiratory Therapy Evaluate & Treat Comment: Physician Instructions: Evaluate and treat 01/20/19 06:41 Consult to Physical Therapy Evaluate & Treat Comment: Physician Instructions: Evaluate and Treat Discharge provider: Kelly Ramírez DO Summary Discharge Diagnosis: Acute exacerbation of chronic right sided heart failure with preserved ejection fraction Pulmonary hypertension Coronary arter disease Acute on chronic respiratory failure from Interstitial lung disease Atrial fibrillation Chronic anticoagulation Deconditioning Hospital Course: Acute on chronic right sided heart failure with preserved ejection fraction secondary to pulmonary hypertension from interstitial lung disease: Improved with diuresis. Has transitioned to oral furosemide at home dosing at 20 mg. BNP decreased from 926 to 419. May benefit from increased morning dose of furosemide at 40 mg for a few days. Interstitial lung disease: Prednisone 40 mg for a total of 5 days, last dose today, then decrease back to usual 2.5 mg. Continue supplemental oxygen, she is now at her baseline oxygen needs. However her indurance remains impaired. Continue albuterol nebulizers as needed. Will send a home rx for with MDI albuterol. She has spacer now. Continue nebs at [facility]. Atrial fibrillation initially with supratherapeutic INR: warfarin was held 01/19- 01/21 and INR dropped from 5.7 to 2.7. Gave 6 mg (greater than normal) dose on 01/22 with increase in INR to 3.4. Would hold her warfarin another day and restart depending on INR results. Her usual home dose is 4 mg daily. Continue carvedilol for rate control. CAD: Received atorvastatin Hypertension: Received amlodipine. DVT prophylaxis: on warfarin Diet: Cardiac diet Code status: Limited code. Patient wishes for a trial of CPR however does not wish to be intubated. POLST up-to-date in chart. Disposition: Discharge to long-term to continue working with physical therapy to build endurance with the goal of returning home. Status at Discharge Cognitive/behavioral status at discharge: oriented Functional status at discharge: uses cane/walker Overall status at discharge: patient is not back to baseline Time Spent with Patient Greater than 30 minutes Exam Vital Signs (past 8 hours): - 01/22/19 00:40 01/22/19 04:40 01/22/19 08:08 Temperature 97.5 F L 98.3 F Pulse Rate 81 76 Respiratory Rate 20 16 Blood Pressure 116/63 138/77 120/66 Pulse Oximetry 92 94 01/22/19 08:18 Temperature Pulse Rate Respiratory Rate Blood Pressure Pulse Oximetry 93 Oxygen Delivery Method Nasal Cannula Oxygen Flow Rate 2 Objective Labs Result Diagrams: 01/23/19 05:27 01/23/19 05:27 Labs: Laboratory Results - last 24 hr 01/21/19 01/22/19 01/22/19 05:30 05:40 05:40 WBC 13.9 H RBC 3.99 L Hgb 11.7 L Hct 36.2 MCV 90.6 MCH 29.2 MCHC 32.2 RDW 14.0 Plt Count 240 PT 31.8 H D INR 2.7 H Sodium Potassium Chloride Carbon Dioxide BUN Creatinine Estimated GFR BUN/Creatinine Ratio Glucose Calcium B-Natriuretic Peptide 586 H 01/22/19 05:40 WBC RBC Hgb Hct MCV MCH MCHC RDW Plt Count PT INR Sodium 136 L Potassium 3.7 Chloride 96 L Carbon Dioxide 36 H BUN 16 Creatinine 0.60 Estimated GFR > 60.0 BUN/Creatinine Ratio 26.7 H Glucose 111 H Calcium 8.3 L B-Natriuretic Peptide Discharge Plan Discharge Plan Patient Disposition: SNF Transfer to: [facility] Under care of provider: Facility provider Labs: INR, CBC and BMP Consult as needed: Dental, Hearing, Mental health, Podiatry and Vision Discharge comment: Will need to hold warfarin tonight and recheck tomorrow. Consider dose increase of furosemide to 40 mg in the morning with monitoring BMP. I certify the postop hospital long-term care is medically necessary on a continuing basis for any conditions for which he/ she received care during this hospitalization.: Yes The receiving facility has agreed to accept transfer and provide medical treatment.: Yes Discharge Med Rec/Prescriptions Prescriptions: New dextromethorphan-guaifenesin 10-100 mg/5 mL Syrup 10 ml PO Q4HR Qty: 300 RF: 0 albuterol sulfate 90 mcg/actuation HFA aerosol inhaler 2 puff INHALATION Q6H PRN (Reason: shortness of breath or wheezing) Qty: 6.7 RF: 0 prednisone 2.5 mg tablet 2.5 mg PO DAILY Qty: 30 RF: 0 acetaminophen 325 mg Tablet 650 mg PO Q6HR PRN (Reason: As Needed For Fever/Mild Pain) Qty: 30 RF: 0 warfarin [Coumadin] 2 mg Tablet 3 mg PO 1700 Qty: 30 RF: 0 bisacodyl 5 mg Tablet,Delayed Release (Dr/Ec) 10 mg PO DAILY PRN (Reason: Constipation) Qty: 10 RF: 0 Continued amlodipine 5 mg tablet 5 mg PO QPM RF: 0 atorvastatin 20 mg tablet 20 mg PO QPM RF: 0 carvedilol 12.5 mg tablet 12.5 mg PO BID RF: 0 furosemide 20 mg tablet 20 mg PO BID RF: 0 gabapentin 300 mg capsule 300 mg PO QPM RF: 0 losartan 50 mg tablet 50 mg PO QPM RF: 0 mycophenolate mofetil 500 mg tablet 1,000 mg PO BID RF: 0 nitroglycerin 0.4 mg tablet, sublingual 0.4 mg SL Q5-15M PRN (Reason: Chest Pain) RF: 0 warfarin 4 mg tablet 4 mg PO QPM RF: 0 aspirin 325 mg tablet 325 mg PO DAILY RF: 0 levothyroxine 50 mcg tablet 50 mcg PO DAILY RF: 0 multivitamin Tablet 1 tab PO DAILY RF: 0 omega 9-avt-low-fish oil [Fish Oil] 1,000 mg (120 mg-180 mg) Capsule 1 cap PO DAILY RF: 0 potassium chloride 20 mEq Tablet Extended Release 20 meq PO DAILY RF: 0 calcium citrate-vitamin D3 [Citracal Regular] 250 mg calcium- 200 unit Tablet 1 tab PO DAILY RF: 0 Fish Oil 1 cap PO QAM RF: 0 krill oil 1 cap PO QPM RF: 0 Discontinued prednisone 2.5 mg tablet 2.5 dose PO DAILY RF: 0 Follow up/Referrals: Nataly Wilson DO [Primary Care Provider] - 2 Weeks Discharge Health Status Brief summary of current health status: Deconditioned with easy fatigue Multidrug resistant organism: No MDRO MDRO Verified by culture: No Precautions: [place] Provider Discharge Instructions Diet: Diet as Tolerated Liquid consistency: Normal/Thin Food texture: Regular [facility] Reason for rehabilitation: Recovery r/t decondition Rehab type: Physical therapy and Occupational therapy Visit Report/Discharge Packet Instructions: DI for Heart Failure, Interstitial Lung Disease Discharge Data Primary Care Provider: Nataly Wilson Attending Provider: Nataly Wilson Admit Date/Time: 01/19/19 11:14 Quality VTE Deep Vein Thrombosis/Pulmonary Embolism Present on Admission: No
[2019-01-22] MEDS: ALBUTEROL 2.5 MG/3 ML NEB (ADULT) INH ×3 (09:12→20:17)
--- NOTE | 2019-01-22 10:48 | PT.IPTN ---
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 (01/19/19) Hypoxemia (01/19/19) Abnormal coagulation profile (01/19/19) Dependence on supplemental oxygen (01/19/19) Physical Therapy Treatment Note M2 PT-IP Current Condition Start: 01/20/19 13:48 Freq: NEEDED Status: Active Protocol: Document 01/20/19 13:48 AR (Rec: 01/20/19 14:31 AR [email or web address]) Physical Therapy Current Condition Current Condition Evaluation Date 01/20/19 Treatment Diagnosis Difficulty with walking, acute respiratory failure Weight Bearing Status Weight Bearing Status Full Weight Bearing M3 PT-IP Subjective Start: 01/20/19 13:48 Freq: NEEDED Status: Active Protocol: Document 01/22/19 10:47 GGD (Rec: 01/22/19 10:48 GGD [id number]) Subjective Physical Therapy Visit Type Type Patient Refusal Notes Pt refused states she is D/C home today and has no needs. M4 PT-IP [facility] a Outpatient PT
--- NOTE | 2019-01-22 13:30 | CM.DPC ---
Addendum entered by Caridad Aleman R.N. 01/22/19 15:19: Spoke to Cecile at [facility], who stated that they can take patient tomorrow, but discharge summary needs to state that all is not resolved. Other option is home health. Met daughter in the [place], and gave her update. Daughter stated, she does have family to help out at home when she goes on vacation, so home health can also be an option. Original Note: DCP Cont: Patient was to be discharged home today. She was ready to go home this morning, but stated that she was not feeling well, increased weakness. Met with patient and daughter. Patient was wanting to see if she could go to skilled rehab. Daughter also concerned for she will be leaving later in the week to go on vacation. was in room also. This case packer mentioned that physical therapy has cleared her to go home, and did speak to Shwetha in physical therapy who had cleared patient. Spoke to Dr. Ramírez, who stated, she thinks that patient did too much today. Discussed home health option versus skilled. Let her know that this case packer went ahead and faxed face sheet to [facility] to review. Will see how she does tomorrow, and if [facility] can accept. At this time, Dr. Ramírez stated will DC discharge order.: P: Re-evaluate tomorrow. Home health versus skilled. Have face to face signed already. Caridad Aleman RN/Supervising Law Enforcement Analyst.
[2019-01-22] MEDS: WARFARIN 3 MG TABLET 6 MG PO (17:02)
[2019-01-22] MEDS: ATORVASTATIN 20 MG TABLET PO (17:02)
[2019-01-22] MEDS: AMLODIPINE 5 MG TABLET PO (17:03)
[2019-01-22] MEDS: LOSARTAN 50 MG TABLET PO (17:03)
[2019-01-22] MEDS: GABAPENTIN 300 MG CAPSULE PO (17:03)
--- NOTE | 2019-01-22 20:57 | PM.PN.1 ---
Subjective Date Patient Seen: 01/22/19 Time Patient Seen: 08:10 Interval history: Patient had a much better night last night and is feeling improved this morning. She feels she is ready to go home. Daughter is concerned that she is not going to be going on a vacation however there are other family members that will be available while she is away. She continues to cough but was not able to get cough medicine in a timely manner. She is at her baseline home oxygen requirement. She is wondering about nebulizing treatments at home as well a prednisone. She was up this morning and about. Worked with PT and at noon she felt totally wiped out and was wondering how she could manage at home. Care management started discussions about home health or if she would qualify for SNF. Patient would like SNF if possible and is nervous about home discharge. Exam Vital Signs (past 8 hours): - 01/22/19 15:45 01/22/19 15:56 01/22/19 19:30 Temperature 98.6 F 98.1 F Pulse Rate 74 80 Respiratory Rate 20 20 Blood Pressure 132/55 L 103/53 L Pulse Oximetry 94 94 01/22/19 20:19 Temperature Pulse Rate 97 H Respiratory Rate 20 Blood Pressure Pulse Oximetry 95 Oxygen Delivery Method Nasal Cannula Oxygen Flow Rate 2 Narrative Exam Narrative: General: Awake and alert, no acute distress. Sitting up in chair, appears comfortable. HEENT: NCAT, EOMI, moist oral mucosa CV: IrRegular rate and rhythm Lungs: corase throughout, no wheezes Abdomen: Soft, nontender; bowel tones active; no hepatosplenomegaly Extremities: Warm, no edema Objective Labs Result Diagrams: 01/22/19 05:40 01/22/19 05:40 Labs: Laboratory Results - last 24 hr 01/22/19 01/22/19 01/22/19 05:40 05:40 05:40 WBC 13.9 H RBC 3.99 L Hgb 11.7 L Hct 36.2 MCV 90.6 MCH 29.2 MCHC 32.2 RDW 14.0 Plt Count 240 PT 31.8 H D INR 2.7 H Sodium 136 L Potassium 3.7 Chloride 96 L Carbon Dioxide 36 H BUN 16 Creatinine 0.60 Estimated GFR > 60.0 BUN/Creatinine Ratio 26.7 H Glucose 111 H Calcium 8.3 L Assessment & Plan Assessment & Plan narrative: Acute right sided heart failure with preserved ejection fraction secondary to pulmonary hypertension from interstitial lung disease: Improved with diuresis. Has transitioned to oral furosemide. Interstitial lung disease: Continue prednisone 40 mg for a total of 5 days (01/23 last dose) then decrease back to usual 2.5 mg. Continue supplemental oxygen, she is now at her baseline oxygen needs. Continue albuterol nebulizers as needed. Will discharge with MDI albuterol. She has spacer now. Atrial fibrillation initially with supratherapeutic INR: INR 2.7 today. Usual dose is 4 mg daily. Will give her 6 mg today, recheck tomorrow and then continue with her daily 4 mg. Continue carvedilol for rate control. Discontinue cardiac monitoring. CAD: Continue atorvastatin Hypertension: Continue amlodipine DVT prophylaxis: on warfarin Diet: Cardiac diet Code status: Limited code. Patient wishes for a trial of CPR however does not wish to be intubated. POLST up-to-date in chart. Disposition: Anticipate discharge tomorrow either to SNF or with home health. Will need close follow-up of her INR after resumption of warfarin. Quality VTE Deep Vein Thrombosis/Pulmonary Embolism Present on Admission: No
--- NOTE | 2019-01-23 00:16 | PC.NURSE ---
Patient asleep in recliner, easily aroused and is alert/oriented. O2 @ 2L nasal cannula. Occasional non productive cough noted. Denies any pain/discomfort. Call light within reach.
[2019-01-23 00:40] VITALS: BP 94/67; PULSE 65; RESP 18; TEMP 36.4; O2SAT 93
[2019-01-23] MEDS: guaiFENesin/DEXTROMETH Syrup 5 ML SYRUP 10 ML PO ×2 (01:03→04:52)
[2019-01-23 04:40] VITALS: BP 129/60; PULSE 83; RESP 20; TEMP 36.8; O2SAT 91
[2019-01-23 05:56] LABS: Blood Urea Nitrogen 12 mg/dL (7-17); Calcium 8.6 mg/dL (8.4-10.2); Carbon Dioxide 37 mmol/L (22-32); Chloride 94 mmol/L (98-107); Estimated Glomerular Filt Rate > 60.0 mL/min (>60); Glucose 118 mg/dL (80-110); HEMOLYSIS < 15 (0-50); Sodium 137 mmol/L (137-145)
[2019-01-23 05:57] LABS: Add Manual Diff / Slide Review NO; Basophils Absolute Auto 0 /uL (0-100); Basophils Percent Auto 0.2 % (0-2); Eosinophils Absolute Auto 0 /uL (0-450); Eosinophils Percent Auto 0.1 % (2-4); Hematocrit 37.1 % (36-46); Hemoglobin 12.4 g/dL (12.0-16.0); Lymphocytes Absolute Auto 900 /uL (1100-4500); Lymphocytes Percent Auto 6.3 % (25-40); Mean Corpuscular HGB Conc 33.4 % (30-36); Mean Corpuscular Hemoglobin 29.7 PG (26-34); Mean Corpuscular Volume 89.1 fL (80-100); Monocytes Absolute Auto 1000 /uL (0-900); Monocytes Percent Auto 6.8 % (3-14); Neutrophils Absolute Auto 13000 /uL (1500-7000); Neutrophils Percent Auto 86.6 % (50-75); Platelet Count 248 X10^3/uL (150-400); Red Blood Cell Count 4.17 X10^6/uL (4.0-5.2); Red Cell Distribution Width 14.1 % (11.6-14.8)
[2019-01-23 06:35] LABS: B Type Natriuretic Peptide 419 (<100)
[2019-01-23 07:47] LABS: INR 3.4 (0.9-1.3); Prothrombin Time 40.1 SECONDS (10.1-12.7)
[2019-01-23 07:52] VITALS: BP 116/73; PULSE 77; PULSE 85; RESP 16; RESP 20; TEMP 36.7; O2SAT 93; O2SAT 94
[2019-01-23] MEDS: ALBUTEROL 2.5 MG/3 ML NEB (ADULT) INH (07:52)
[2019-01-23 08:30] VITALS: O2SAT 94
--- NOTE | 2019-01-23 08:46 | CM.DPC ---
DCP: continued: EMR reviewed and spoke with Dr. Ramírez. She reports pt remains in need of snf stay before home and says that pt is very agreeable to same. Met then with pt and her daughter who confirmed this. VM left (x 2) to [facility]/admissions re above with request for van citrus picker at 1100 if possible. PASRR: completed: faxed to [facility]. copy to [facility] to scan to EMR. Original to snf packet. Orders are now completed and faxed. STNA Ruiz is updated. Will await final time from [facility]. [facility]: today: December just called back: will try for 1100 or 1130 and will confirms shortly.
[2019-01-23 08:48] VITALS: BP 116/73
[2019-01-23] MEDS: predniSONE 20 MG TABLET 40 MG PO (08:48)
[2019-01-23] MEDS: MYCOPHENOLATE MOFETIL 500 MG TABLET 1000 MG PO (08:48)
[2019-01-23] MEDS: LEVOTHYROXINE 50 MCG TABLET PO (08:48)
[2019-01-23] MEDS: CARVEDILOL 12.5 MG TABLET PO (08:48)
[2019-01-23] MEDS: POTASSIUM CHLORIDE 20 MEQ TAB PO (08:48)
[2019-01-23] MEDS: FUROSEMIDE 20 MG TABLET PO (08:48)
[2019-01-23] MEDS: SODIUM CHLORIDE 0.9% FLUSH 10 ML IV (08:49)
--- NOTE | 2019-01-23 10:00 | PT.IPTN ---
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 (01/19/19) Hypoxemia (01/19/19) Abnormal coagulation profile (01/19/19) Dependence on supplemental oxygen (01/19/19) Physical Therapy Treatment Note M2 PT-IP Current Condition Start: 01/20/19 13:48 Freq: NEEDED Status: Active Protocol: Document 01/20/19 13:48 AR (Rec: 01/20/19 14:31 AR [email or web address]) Physical Therapy Current Condition Current Condition Evaluation Date 01/20/19 Treatment Diagnosis Difficulty with walking, acute respiratory failure Weight Bearing Status Weight Bearing Status Full Weight Bearing M3 PT-IP Subjective Start: 01/20/19 13:48 Freq: NEEDED Status: Active Protocol: Document 01/23/19 10:10 GGD (Rec: 01/23/19 12:00 GGD [id number]) Subjective Physical Therapy Visit Type Notes Pt walked with RN and just returned to room. M4
[2019-01-23] MEDS: GUAIFENESIN/DM 200/20 MG/10 ML UDC PO (10:01)
--- NOTE | 2019-01-23 11:00 | PC.NURSE ---
Report called to [facility] development mgrSTAN Tristan. All questions answered, IV removed, belongings packed up and Pt ready for transfer to [facility]
--- NOTE | 2019-01-23 12:01 | PC.NURSE ---
Pt out via w/c by [facility] transport personnel with all belongings.
== END 2019-01-23 12:00 | DRG 291 ==
LOC: ED 11:06 → AC 11:27
PROVIDERS: Family Medicine; Admitting Provider Family Medicine; Emergency Provider Emergency Medicine; Family Provider Family Medicine; PCP Family Medicine; Visit Provider Family Medicine
DX: I11.0 Hypertensive heart disease with heart failure (principal); J96.21 Acute and chronic respiratory failure with hypoxia; I50.31 Acute diastolic (congestive) heart failure; Q87.1 Congenital malformation syndromes predominantly associated with short stature; J84.9 Interstitial pulmonary disease, unspecified; Z99.81 Dependence on supplemental oxygen; I27.20 Pulmonary hypertension, unspecified; M35.00 Sjogren syndrome, unspecified; I25.10 Atherosclerotic heart disease of native coronary artery without angina pectoris; Z95.1 Presence of aortocoronary bypass graft; Z79.01 Long term (current) use of anticoagulants; I48.91 Unspecified atrial fibrillation
CPT/HCPCS: 36415; 36591; 71045; 71046; 80048; 80053; 81003; 81015; 82550; 83605; 83735; 83880; 84145; 84484; 85025; 85027; 85610; 87040; 87086; 93005; 93306; 94640; 94760; 96374; 96375; 97116; 97161; 97530; 99223; 99232; 99233; 99239; 99285; J1940; J2930; J7613

== ENCOUNTER → 2019-09-01 09:39 | Outpatient (CLI) | payer MEDICARE, OTHER, SELFPAY ==
[2019-02-24 13:24] VITALS: BMI 27.8
[2019-09-01 10:18] LABS: Add Manual Diff / Slide Review NO; Basophils Absolute Auto 0 /uL (0-100); Basophils Percent Auto 0.7 % (0-2); Eosinophils Absolute Auto 100 /uL (0-450); Eosinophils Percent Auto 1.2 % (2-4); Hematocrit 39.5 % (36-46); Lymphocytes Absolute Auto 1200 /uL (1100-4500); Lymphocytes Percent Auto 20.5 % (25-40); Mean Corpuscular HGB Conc 32.8 % (30-36); Mean Corpuscular Hemoglobin 29.4 PG (26-34); Mean Corpuscular Volume 89.7 fL (80-100); Monocytes Absolute Auto 400 /uL (0-900); Monocytes Percent Auto 6.3 % (3-14); Neutrophils Absolute Auto 4200 /uL (1500-7000); Neutrophils Percent Auto 71.3 % (50-75); Platelet Count 184 X10^3/uL (150-400); Red Cell Distribution Width 15.1 % (11.6-14.8); White Blood Cell Count 5.9 X10^3/uL (4.5-11.0)
[2019-09-01 10:39] LABS: Alanine Aminotransferase 16 IU/L (<35); Albumin 3.9 g/dL (3.5-5.0); Albumin Globulin Ratio 1.1 (1.0-2.8); Alkaline Phosphatase 52 U/L (38-126); Aspartate Aminotransferase 25 IU/L (14-36); BUN Creatinine Ratio 23.8 (6-22); Bilirubin Total 0.8 mg/dL (0.2-1.3); Blood Urea Nitrogen 19 mg/dL (7-17); Calcium 9.3 mg/dL (8.4-10.2); Carbon Dioxide 29 mmol/L (22-32); Chloride 104 mmol/L (98-107); Estimated Glomerular Filt Rate > 60.0 mL/min (>60); Globulin 3.6 g/dL (1.7-4.1); Glucose 108 mg/dL (80-110); HEMOLYSIS < 15 (0-50); Potassium 4.4 mmol/L (3.4-5.1); Sodium 141 mmol/L (137-145); Total Protein 7.5 g/dL (6.3-8.2)
[2019-09-01 11:19] LABS: Thyroid Stimulating Hormone 3.77 uIU/mL (0.47-4.68)
== END ==
PROVIDERS: Family Provider Family Medicine; PCP Family Medicine; Referring Provider Nurse Practitioner Family; Visit Provider Nurse Practitioner Family
DX: R55 Syncope and collapse (principal)
CPT/HCPCS: 36415; 80053; 83735; 84443; 85025

== ENCOUNTER → 2019-09-24 12:26 | Outpatient (CLI) | payer MEDICARE, OTHER, SELFPAY ==
[2019-02-24 13:24] VITALS: BMI 27.8
--- NOTE | 2019-09-24 12:28 | DI.RAD.S_ITS ---
PROCEDURE: XR CHEST 2V INDICATIONS: Cough TECHNIQUE: 2 views of the chest were acquired. COMPARISON: [facility], CR, XR CHEST 2V, 01/21/2019, 8:20. FINDINGS: Surgical changes and devices: Dual-lead cardiac pacer and median sternotomy wires are stable. Lungs and pleura: Interstitial prominence involving the lung apices bilaterally in the medial aspect right lung base stable compared to prior examination likely related to chronic interstitial lung disease. Mild cephalization of pulmonary vasculature concerning for CHF. No pleural effusions or pneumothorax. Mediastinum: Mediastinal contours are normal. Heart is enlarged. Bones and chest wall: No suspicious bony abnormalities. Soft tissues appear unremarkable. IMPRESSION: 1. Cardiomegaly with mild cephalization pulmonary vasculature suspicious for CHF. 2. No pleural effusion or lung consolidation. Dictated by: Marcelina Beltrán MD, PhD on 09/24/2019 at 11:54 Approved by: Marcelina Beltrán MD, PhD on 09/24/2019 at 11:55
== END ==
PROVIDERS: Family Provider Family Medicine; PCP Family Medicine; Referring Provider Registered Nurse; Visit Provider Registered Nurse
DX: R05 Cough (principal); I51.7 Cardiomegaly
CPT/HCPCS: 71046

== ENCOUNTER → 2019-10-27 10:09 | Outpatient (CLI) | payer MEDICARE, OTHER, SELFPAY ==
[2019-02-24 13:24] VITALS: BMI 27.8
--- NOTE | 2019-10-27 10:12 | DI.RAD.S_ITS ---
PROCEDURE: XR CHEST 2V INDICATIONS: Cough TECHNIQUE: 2 views of the chest were acquired. COMPARISON: [facility], CR, XR CHEST 2V, 09/24/2019, 12:25. FINDINGS: Surgical changes and devices: Pacemaker, remote midline sternotomy Lungs and pleura: Chronic interstitial change with a biapical predominance. There is biapical pleural parenchymal scarring and biapical volume loss with cephalad retraction of the pulmonary lian. No pleural effusions or pneumothorax. Mediastinum: Mediastinal contours are normal. Mild cardiomegaly is unchanged. Bones and chest wall: No suspicious bony abnormalities. Soft tissues appear unremarkable. IMPRESSION: Chronic interstitial change with biapical predominance and chronic biapical volume loss. Dictated by: Oziel Cueva M.D. on 10/27/2019 at 10:34 Approved by: Oziel Cueva M.D. on 10/27/2019 at 10:41
[2019-10-27 12:11] LABS: Add Manual Diff / Slide Review NO; Basophils Absolute Auto 100 /uL (0-100); Basophils Percent Auto 0.7 % (0-2); Eosinophils Absolute Auto 100 /uL (0-450); Hematocrit 36.6 % (36-46); Lymphocytes Absolute Auto 1000 /uL (1100-4500); Mean Corpuscular HGB Conc 32.8 % (30-36); Mean Corpuscular Hemoglobin 29.6 PG (26-34); Mean Corpuscular Volume 90.4 fL (80-100); Monocytes Absolute Auto 600 /uL (0-900); Monocytes Percent Auto 6.7 % (3-14); Neutrophils Absolute Auto 7300 /uL (1500-7000); Neutrophils Percent Auto 80.6 % (50-75); Platelet Count 206 X10^3/uL (150-400); Red Blood Cell Count 4.05 X10^6/uL (4.0-5.2); Red Cell Distribution Width 14.9 % (11.6-14.8)
[2019-10-27 12:41] LABS: Alanine Aminotransferase 12 IU/L (<35); Albumin 3.7 g/dL (3.5-5.0); Albumin Globulin Ratio 1.1 (1.0-2.8); Alkaline Phosphatase 41 U/L (38-126); Aspartate Aminotransferase 26 IU/L (14-36); BUN Creatinine Ratio 23.1 (6-22); Bilirubin Total 0.8 mg/dL (0.2-1.3); Blood Urea Nitrogen 15 mg/dL (7-17); Calcium 9.2 mg/dL (8.4-10.2); Carbon Dioxide 33 mmol/L (22-32); Chloride 100 mmol/L (98-107); Estimated Glomerular Filt Rate > 60.0 mL/min (>60); Globulin 3.4 g/dL (1.7-4.1); Glucose 98 mg/dL (80-110); HEMOLYSIS 32 (0-50); Potassium 3.7 mmol/L (3.4-5.1); Sodium 137 mmol/L (137-145); Total Protein 7.1 g/dL (6.3-8.2)
[2019-10-27 12:50] LABS: NT-proBNP (BNP-Adult 18+) 3570 pg/mL (<450)
== END ==
PROVIDERS: Family Provider Family Medicine; PCP Family Medicine; Referring Provider Family Medicine; Visit Provider Family Medicine
DX: R05 Cough (principal); J96.10 Chronic respiratory failure, unspecified whether with hypoxia or hypercapnia; Z99.81 Dependence on supplemental oxygen; R06.02 Shortness of breath
CPT/HCPCS: 36415; 71046; 80053; 83880; 85025

== ENCOUNTER → 2019-11-05 14:13 | Outpatient (CLI) | payer MEDICARE, OTHER, SELFPAY ==
[2019-02-24 13:24] VITALS: BMI 27.8
[2019-11-05 17:19] LABS: BUN Creatinine Ratio 22.2 (6-22); Blood Urea Nitrogen 16 mg/dL (7-17); Carbon Dioxide 32 mmol/L (22-32); Chloride 98 mmol/L (98-107); Estimated Glomerular Filt Rate > 60.0 mL/min (>60); Glucose 100 mg/dL (80-110); HEMOLYSIS < 15 (0-50); Sodium 139 mmol/L (137-145)
[2019-11-05 18:14] LABS: Thyroid Stimulating Hormone 3.52 uIU/mL (0.47-4.68)
== END ==
PROVIDERS: Family Provider Family Medicine; PCP Family Medicine; Referring Provider Nurse Practitioner Family; Visit Provider Nurse Practitioner Family
DX: R06.02 Shortness of breath (principal); R53.83 Other fatigue; I50.31 Acute diastolic (congestive) heart failure
CPT/HCPCS: 36415; 80048; 84443

== ENCOUNTER → 2020-02-19 12:09 | Outpatient (CLI) | payer MEDICARE, OTHER, SELFPAY ==
[2019-02-24 13:24] VITALS: BMI 27.8
--- NOTE | 2020-02-19 12:11 | DI.RAD.S_ITS ---
PROCEDURE: XR KNEE LT 3V INDICATIONS: GLF TECHNIQUE: 3 views of the knee were acquired. COMPARISON: [facility] AMARJIT Almendarez, KNEE SERIES LT, 11/23/2013, 15:34. [facility] AMARJIT Almendarez, BILATERAL KNEE 3VW, 01/10/2015, 10:11. [facility], , KNEE 1-2 VIEWS RIGHT, 02/23/2015, 17:29. [facility], , KNEE 1-2 VIEWS LEFT, 11/12/2013, 17:40. FINDINGS: Bones: Subtle lucency in the lateral patella. The lateral patellar enthesophyte is increased compared to the remote comparison. Left total knee arthroplasty is unchanged. No periprosthetic lucency to suggest loosening or infection. No suspicious bony lesions. Soft tissues: No joint effusion. No suspicious soft tissue calcifications. IMPRESSION: Lucency in the lateral patella seen on the sunrise view raises the possibility of a nondisplaced fracture. No joint effusion. Recommend correlation for point tenderness. A CT or MRI could be considered for further evaluation. Left total knee arthroplasty is stable. Dictated by: aSm Duenas M.D. on 02/19/2020 at 12:36 Approved by: Sam Duenas M.D. on 02/19/2020 at 12:43
--- NOTE | 2020-02-19 12:11 | DI.RAD.S_ITS ---
PROCEDURE: XR KNEE RT 3V INDICATIONS: GLF TECHNIQUE: 3 views of the knee were acquired. COMPARISON: [facility] AMARJIT Almendarez, KNEE SERIES RT, 03/09/2015, 9:36. [facility] AMARJIT Almendarez, BILATERAL KNEE 3VW, 01/10/2015, 10:11. [facility], , KNEE 1-2 VIEWS RIGHT, 02/23/2015, 17:29. [facility], , KNEE 1-2 VIEWS LEFT, 11/12/2013, 17:40. FINDINGS: Bones: No fractures or dislocations. The right total knee arthroplasty is unchanged. No periprosthetic lucency to suggest loosening or infection. No suspicious bony lesions. Soft tissues: No significant joint effusion. No suspicious soft tissue calcifications. Vascular calcifications. IMPRESSION: No acute osseous abnormality. Right total knee arthroplasty is stable. Dictated by: Sam Duenas M.D. on 02/19/2020 at 12:43 Approved by: Sam Duenas M.D. on 02/19/2020 at 12:45
== END ==
PROVIDERS: Family Provider Family Medicine; PCP Family Medicine; Referring Provider Physician Assistant; Visit Provider Physician Assistant
DX: M25.561 Pain in right knee (principal); M25.562 Pain in left knee; S80.02XA Contusion of left knee, initial encounter; S80.01XA Contusion of right knee, initial encounter; W01.0XXA Fall on same level from slipping, tripping and stumbling without subsequent striking against object, initial encounter; Z96.653 Presence of artificial knee joint, bilateral
CPT/HCPCS: 73562

== ENCOUNTER → 2020-04-25 11:27 | Outpatient (CLI) | payer MEDICARE, OTHER, SELFPAY ==
[2019-02-24 13:24] VITALS: BMI 27.8
[2020-04-26 01:29] LABS: COVID19 Sendout Not Detected (Not Detect)
== END ==
PROVIDERS: Family Provider Family Medicine; PCP Family Medicine; Visit Provider Physician Assistant
DX: Z01.812 Encounter for preprocedural laboratory examination (principal)
CPT/HCPCS: 87635

== ENCOUNTER → 2020-04-28 07:02 | Outpatient (CLI) | payer MEDICARE, OTHER, SELFPAY ==
[2019-02-24 13:24] VITALS: BMI 27.8
--- NOTE | 2020-05-04 09:06 | PM.PFT.1 ---
Pulmonary Function Test Referral & Results Date Patient Seen: 04/28/20 Results: The spirometry demonstrates an FVC of 1.08 L which is 40% of predicted. The FEV1 was measured at 0.8 L which is 40% of predicted. The FEV1/FVC ratio was 74 which is 100% of predicted. Following the administration of bronchodilator there was a 10% improvement in FEV1 and a 66% improvement in FEF 25-75%. Lung volumes show an SVC of 1.09 L which is 45% of predicted. The diffusing capacity was measured at 6.95 which is 32% of predicted. No hemoglobin value was provided, so no correction for potential anemia could be made, if appropriate. The maximum voluntary ventilation was reduced Interpretation: This study demonstrates some element of obstructive lung disease based on reduction FEV1 and minimal improvement post bronchodilator as above However there is also a similar reduction in lung volumes suggesting significant restrictive lung disease that may well balance the abnormality seen in the forced capacities. Patient's diffusing capacity is also significantly reduced. Overall this would be consistent with a diagnosis of COPD Compared to PFTs performed in December 2014, current study shows further decline in FEV1 as well as SVC. Diffusing capacity is essentially unchanged.
== END ==
PROVIDERS: Family Provider Family Medicine; PCP Family Medicine; Referring Provider Family Medicine; Visit Provider Internal Medicine Pulmonary Disease
DX: R09.02 Hypoxemia (principal); R84.9 Unspecified abnormal finding in specimens from respiratory organs and thorax
CPT/HCPCS: 94060; 94726; 94729

== ENCOUNTER → 2020-05-04 15:43 | Outpatient (CLI) | payer MEDICARE, OTHER, SELFPAY ==
[2019-02-24 13:24] VITALS: BMI 27.8
[2020-05-04 17:54] LABS: BUN Creatinine Ratio 22.3 (6-22); Blood Urea Nitrogen 25 mg/dL (7-17); Calcium 8.9 mg/dL (8.4-10.2); Carbon Dioxide 38 mmol/L (22-32); Chloride 96 mmol/L (98-107); Estimated Glomerular Filt Rate 46.5 mL/min (>60); Glucose 123 mg/dL (80-110); HEMOLYSIS < 15 (0-50); Phosphorous 4.2 mg/dL (2.8-4.1); Potassium 3.8 mmol/L (3.4-5.1); Sodium 139 mmol/L (137-145)
== END ==
PROVIDERS: Family Provider Family Medicine; PCP Family Medicine; Referring Provider Internal Medicine Pulmonary Disease; Visit Provider Internal Medicine Pulmonary Disease
DX: I50.32 Chronic diastolic (congestive) heart failure (principal)
CPT/HCPCS: 36415; 80069

== ENCOUNTER → 2020-05-16 15:50 | Outpatient (CLI) | payer MEDICARE, OTHER, SELFPAY ==
[2019-02-24 13:24] VITALS: BMI 27.8
--- NOTE | 2020-05-16 | DI.ECHO.S_ITS ---
[place] [facility]---------+ [facility] +---------+ : : [address] : : : : [id number] : : : : Phone: [phone] Echocardiogram Report + + :Name: LIZA BERNARD Study Date: 05/16/2020 Height: 61 in : :[facility] Weight: 143 lb: : Gender: Female BSA: 1.6 m2 : :: 1935 Age: 84 yrs BP: 98/66 mmHg: :Reason For Study: SHORTNESS OF BREATH : :Ordering Physician: CLARENCE WAGNER Performed By: Elaine Ochoa : :Referring: CLARENCE WAGNER : + + Interpretation Summary Normal left ventricle size with ejection fraction 55-60%. There is a mild dyssynchronous contraction pattern due to the paced rhythm. The interventricular septum is flattened, consistent with a right ventricular pressure/volume condition. Moderately dilated right ventricle with mild to moderately reduced right ventricular systolic function. There is a pacemaker lead in the right ventricle. Severe biatrial enlargement. Moderate aortic stenosis. Mild aortic regurgitation. Moderate mitral annular calcification. Mild to moderate mitral regurgitation. Severe tricuspid regurgitation. Severe pulmonary hypertension. The right ventricular systolic pressure is estimated to be at least 69 mmHg based on an estimated right atrial pressure of 8 mm Hg. The ascending aorta is mildly enlarged. Comparison is made with the echocardiogram of 01/19/2019, aortic stenosis has progressed slightly and the right ventricular systolic pressure has increased. Procedure: A two-dimensional transthoracic echocardiogram with color flow and Doppler was performed. The study quality was technically adequate. Comparison is made with the echocardiogram of 01/19/2019. The patient was in atrial fibrillation with heart rates between 51-80 bpm during the exam. Left Ventricle: The left ventricle is normal in size and wall thickness. The ejection fraction is estimated to be 55-60%. There is a mild dyssynchronous contraction pattern due to the paced rhythm. The interventricular septum is flattened, consistent with a right ventricular pressure/volume condition. Diastolic function could not be accurately assessed due to atrial fibrillation. Right Ventricle: The right ventricle is moderately dilated. There is a pacemaker lead in the right ventricle. Right ventricular systolic function is mild to moderately reduced. Atria: There is severe biatrial enlargement. There is a catheter/pacemaker lead seen in the right atrium. There is no Doppler evidence for an interatrial shunt. Mitral Valve: There is moderate mitral annular calcification. The mitral valve leaflets appear mildly thickened, but open well. There is mild to moderate mitral regurgitation. There are multiple regurgitant jets present. Aortic Valve: The aortic valve is trileaflet. The aortic valve is moderately calcified. There is moderate aortic stenosis. The peak aortic velocity is 2.3 m/sec. The aortic valve mean gradient is 11 mmHg. There is mild aortic regurgitation. Tricuspid Valve: The tricuspid valve leaflets are thin and pliable. There is severe tricuspid regurgitation. There is severe pulmonary hypertension. The right ventricular systolic pressure is estimated to be at least 69 mmHg based on an estimated right atrial pressure of 8 mm Hg. Pulmonic Valve: The pulmonic valve is not well visualized. There is mild to moderate pulmonic regurgitation. Great Vessels: The aortic root is normal size. The ascending aorta is mildly enlarged. The IVC is dilated (diameter is greater than 2.1 cm) yet it collapses greater than 50% with a sniff. This suggests a right atrial pressure of 8 mm Hg. Pericardium/ Pleura There is no pericardial effusion. There has been no significant change since the previous study. MMode/2D Measurements & Calculations LVIDd: 4.2 cm LVOT diam: 2.1 cm LVIDs: 2.7 cm Ao root diam: 2.9 cm FS: 36.5 % asc Aorta Diam: 3.4 cm EPSS: 0.63 cm Ao Arch Diam (Prox Trans): 3.0 cm IVSd: 0.84 cm LVPWd: 0.90 cm LV werner. diameter/BSA (cm/m^2): 2.6 LV sys. diameter/BSA (cm/m^2): 1.6 LA A2 area: 26.9 cm2 RA long axis: 6.7 cm LA A4 area: 28.1 cm2 RA area: 30.0 cm2 LA length (vol): 6.4 cm RA vol: 113.7 ml LA vol: 99.7 ml RA : 69.4 ml/m2 LA vol index: 60.9 ml/m2 IVC diam: 2.2 cm RVD1 (basal): 4.3 cm TAPSE: 1.2 cm Doppler Measurements & Calculations Ao V2 max: 245.3 cm/sec LVOT Max Frank: 67.3 cm/sec Ao V2 mean: 163.5 cm/sec LV V1 max P.8 mmHg Ao max P.1 mmHg LV V1 VTI: 14.7 cm Ao mean P.3 mmHg CONOR(I,D): 1.0 cm2 Ao V2 VTI: 51.1 cm CONOR(V,D): 0.98 cm2 sev ratio: 0.29 CONOR indexed to BSA (cm^2/m^2): 0.63 MV E max frank: 109.3 cm/sec TR max frank: 368.8 cm/sec Med Peak E' Frank: 5.2 cm/sec TR max P.9 mmHg E/E' med: 21.2 PA V2 max: 40.9 cm/sec Lat Peak E' Frank: 9.2 cm/sec PA V2 mean: 25.3 cm/sec E/E' lat: 11.9 PA mean P.30 mmHg E/e' average: 16.6 PA pr(Accel): 32.8 mmHg MV dec time: 0.14 sec MV P1/2t: 41.4 msec MV P1/2t max frank: 109.6 cm/sec SV(LVOT): 52.4 ml MVA(P1/2t): 5.3 cm2 Electronically signed by: Nila Aguilera on Reading Physician:05/17/2020 07:52 PM
== END ==
PROVIDERS: Family Provider Family Medicine; PCP Family Medicine; Referring Provider Family Medicine; Visit Provider Internal Medicine Pulmonary Disease
DX: I08.3 Combined rheumatic disorders of mitral, aortic and tricuspid valves (principal); I27.20 Pulmonary hypertension, unspecified; R06.02 Shortness of breath; Z95.0 Presence of cardiac pacemaker
CPT/HCPCS: 93306

== ENCOUNTER 2020-05-29 22:25 | Emergency (ER) | payer MEDICARE, OTHER, SELFPAY ==
[2019-02-24 13:24] VITALS: BMI 27.8
[2020-05-29 22:25] VITALS: BP 161/78; PULSE 58; RESP 16; O2SAT 98
[2020-05-29 22:30] VITALS: BP 142/71; PULSE 60; RESP 15; O2SAT 98
--- NOTE | 2020-05-29 22:32 | DI.CT.S_ITS ---
PROCEDURE: CT HEAD/BRAIN WO CON INDICATIONS: Follow-up blood thinners TECHNIQUE: Noncontrast 4.5 mm thick angled axial sections acquired from the foramen magnum to the vertex, with coronal and sagittal reformats. For radiation dose reduction, the following was used: automated exposure control, adjustment of mA and/or kV according to patient size. COMPARISON: [facility], CT, CT HEAD/BRAIN WO CON, 06/27/2018, 9:46. FINDINGS: Image quality: Excellent. CSF spaces: Basal cisterns are patent. No extra-axial fluid collections. The ventricles are symmetric in size and shape. Brain: Small right frontal-temporal subdural hematoma with mixed age. Small acute right frontal subdural hematoma. Subarachnoid hemorrhage noted in the frontal sulci bilaterally, the temporal sulci bilaterally, the sylvian fissures bilaterally, the interhemispheric fissure, the suprasellar cistern and the basal cisterns. There is approximately 4-5 millimeters of [id number] midline shift. There is cerebral volume loss for age, with resultant ventricular and sulcal prominence. There are periventricular and deep white matter chronic small vessel ischemic changes. There is intracranial internal carotid artery atherosclerosis. Skull and face: Nondepressed right occipital bone fracture. visualized facial bones appear intact, without suspicious lesions. Sinuses: Visualized sinuses and mastoids are clear. IMPRESSION: 1. Bilateral subdural hematomas right greater than left. 2. Extensive subarachnoid hemorrhage. 3. Mild, approximately 4-5 millimeters of [id number] midline shift. 4. Nondepressed right occipital fracture. Dictated by: Marcelina Beltrán MD, PhD on 05/30/2020 at 7:03 Approved by: Marcelina Beltrán MD, PhD on 05/30/2020 at 7:08
--- NOTE | 2020-05-29 22:33 | DI.CT.S_ITS ---
PROCEDURE: CT FACIAL BONES WO CON INDICATIONS: L side facial bruising after fall TECHNIQUE: Noncontrast 2.5 mm thick axial images acquired from the mandible through the frontal sinuses, with coronal and sagittal reformatting. For radiation dose reduction, the following was used: automated exposure control, adjustment of mA and/or kV according to patient size. COMPARISON: None. FINDINGS: Image quality: Excellent. Bones and teeth: Orbital melissa are intact. Sinus melissa show no fracture or deformity. Nasal bones and septum are intact. Visualized portions of the mandible demonstrate no fractures or subluxation. Zygomatic arches are intact. Pterygoid plates are intact. Visualized portions of the skull base and auditory canals are intact. Sinuses: Mild right maxillary sinus mucosal thickening. Large left maxillary sinus mucous retention cyst versus polyp. Mastoid air cells are aerated. Soft tissues: No edema, masses, or fluid collections. No enlarged lymph nodes. No soft tissue lacerations or debris. Atherosclerotic calcifications noted in the tunnel carotid arteries bilaterally and the left vertebral artery. Intracranial hemorrhage is noted in the visualized portion of the brain which is described in detail in the dedicated CT scan of the head. Vascular: Visualized vascular structures appear normal in the absence of contrast. Bony vascular foramina and canals are intact. IMPRESSION: No fracture. Dictated by: Marcelina Beltrán MD, PhD on 05/30/2020 at 7:48 Approved by: Marcelina Beltrán MD, PhD on 05/30/2020 at 7:51
[2020-05-29 22:39] LABS: Add Manual Diff / Slide Review NO; Basophils Absolute Auto 0 /uL (0-100); Basophils Percent Auto 0.5 % (0-2); Eosinophils Absolute Auto 0 /uL (0-450); Eosinophils Percent Auto 0.7 % (2-4); Hematocrit 40.9 % (36-46); Hemoglobin 13.2 g/dL (12.0-16.0); Lymphocytes Absolute Auto 1400 /uL (1100-4500); Lymphocytes Percent Auto 19.2 % (25-40); Mean Corpuscular HGB Conc 32.4 % (30-36); Mean Corpuscular Volume 89.6 fL (80-100); Monocytes Absolute Auto 400 /uL (0-900); Monocytes Percent Auto 5.7 % (3-14); Neutrophils Absolute Auto 5400 /uL (1500-7000); Neutrophils Percent Auto 73.9 % (50-75); Platelet Count 188 X10^3/uL (150-400); Red Blood Cell Count 4.56 X10^6/uL (4.0-5.2); Red Cell Distribution Width 14.5 % (11.6-14.8); White Blood Cell Count 7.3 X10^3/uL (4.5-11.0)
[2020-05-29 22:40] LABS: INR 3.2 (0.9-1.3); Prothrombin Time 36.2 SECONDS (10.1-12.7)
[2020-05-29 22:43] LABS: PTT Partial Thromboplastin Tim 34 SECONDS (26.4-36.2)
[2020-05-29 22:45] LABS: Alanine Aminotransferase 16 IU/L (<35); Albumin 4.2 g/dL (3.5-5.0); Albumin Globulin Ratio 1.1 (1.0-2.8); Alkaline Phosphatase 55 U/L (38-126); Aspartate Aminotransferase 31 IU/L (14-36); BUN Creatinine Ratio 33.3 (6-22); Bilirubin Total 0.6 mg/dL (0.2-1.3); Blood Urea Nitrogen 33 mg/dL (7-17); Carbon Dioxide 33 mmol/L (22-32); Chloride 100 mmol/L (98-107); Creatine Kinase 41 U/L (30-135); Estimated Glomerular Filt Rate 53.6 mL/min (>60); Globulin 3.8 g/dL (1.7-4.1); Glucose 141 mg/dL (80-110); HEMOLYSIS 29 (0-50); Lipase 332 U/L (23-300); Potassium 4.1 mmol/L (3.4-5.1); Sodium 138 mmol/L (137-145)
[2020-05-29 22:56] LABS: Troponin I < 0.012 ng/mL (0.01-0.034)
[2020-05-29] MEDS: SODIUM CHLORIDE 0.9% 1,000 ML 1000 ML IV (22:57)
[2020-05-29 23:00] VITALS: BP 174/73; PULSE 81; RESP 15; O2SAT 100
[2020-05-29] MEDS: ONDANSETRON 4 MG/2 ML INJ IV (23:00)
[2020-05-29 23:31] VITALS: BP 142/64; PULSE 62; RESP 19; O2SAT 100
--- NOTE | 2020-05-29 23:39 | ED_ITS ---
HPI - Fall General Chief Complaint: Fall Stated Complaint: Syncope Time Seen by Provider: 05/29/20 22:31 Source: patient and EMS Mode of arrival: EMS Limitations: no limitations History of Present Illness HPI Narrative: Patient is a 84-year-old female. Anticoagulated on Coumadin and also aspirin for atrial fibrillation who was brought in by EMS for a fall. This was an unwitnessed fall though it did occur in her home. It was heard by her who went into the kitchen and found her on the ground. There was a question of a loss of consciousness. Patient states she does not remember how she fell. She does not remember any specific prodromal symptoms. She did not think that she tripped. She has been falling recently. She has been taking all of her medications. Upon arrival patient complaining of nausea and headache. She does have some bleeding from the back of her head. Related Data Home Medications Medication Instructions Recorded Confirmed mycophenolate mofetil 500 mg tablet 1,000 mg PO BID 12/13/17 02/19/20 nitroglycerin 0.4 mg sublingual 0.4 mg SL Q5-15M PRN 12/13/17 02/19/20 tablet warfarin 4 mg tablet 4 mg PO QPM 12/13/17 02/19/20 multivitamin 1 tab PO DAILY 06/27/18 02/19/20 omega 6-luq-mhy-fish oil [Fish Oil] 1 cap PO DAILY 06/27/18 02/19/20 aspirin 325 mg tablet 325 mg PO DAILY 07/04/18 02/19/20 calcium citrate-vitamin D3 1 tab PO DAILY 01/19/19 02/19/20 [Citracal Regular] krill oil 1 cap PO QPM 01/19/19 02/19/20 prednisone 2.5 mg tablet 2.5 mg PO BID tab 09/24/19 02/19/20 Previous Rx's Medication Instructions Recorded acetaminophen 650 mg PO Q6HR PRN #30 tab 01/23/19 albuterol sulfate 90 mcg/actuation 2 puff INHALATION Q6H PRN #6.7 gram 10/22/19 aerosol inhaler Disabled Parking #1 each 01/28/20 atorvastatin 20 mg tablet 20 mg PO QPM #90 tab 03/17/20 carvedilol 12.5 mg tablet 12.5 mg PO BID #180 tab 03/17/20 potassium chloride 10 mEq 10 meq PO DAILY #90 tab 03/17/20 tablet,extended release amlodipine 5 mg tablet 5 mg PO QPM #90 tab 04/07/20 furosemide 20 mg tablet 20 mg PO DAILY #90 tab 04/07/20 gabapentin 300 mg capsule 300 mg PO QPM #90 cap 04/07/20 levothyroxine 50 mcg tablet 50 mcg PO DAILY #90 tab 04/07/20 losartan 50 mg tablet 50 mg PO QPM #90 tab 04/07/20 Allergies Allergy/AdvReac Type Severity Reaction Status Date / Time adhesive Allergy Mild RASH/BLISTERS Verified 02/19/20 13:25 PAPER/SIKL TAPE OK Review of Systems Constitutional Constitutional: Denies fatigue, Denies fever(s), Reports frequent falls and Reports headache(s) Eyes Eyes: Denies change in vision ENT Ears, Nose, Mouth, and Throat: Denies vertigo, Denies dizziness, Reports headache(s), Denies neck pain and Denies disequilibrium Cardiovascular Cardiovascular: Denies chest pain, Reports syncope and Denies dyspnea Respiratory Respiratory: Denies cough and Denies dyspnea Gastrointestinal Gastrointestinal: Denies abdominal pain, Denies change in bowel habits, Reports nausea and Denies vomiting Genitourinary Genitourinary: Denies dysuria Genitourinary: Denies dysuria Musculoskeletal Musculoskeletal: Denies arthralgias, Denies back pain, Denies myalgias, Denies neck pain and Denies tingling Integumentary/Breasts Comments: Wound to the back of the head Neurologic Neurologic: Denies confusion, Denies vertigo, Denies dizziness, Reports syncope, Reports frequent falls, Reports headache(s), Denies localized weakness, Denies tingling and Denies disequilibrium Psychiatric Psychiatric: Denies confusion Endocrine Endocrine: Denies fatigue Hematologic/Lymphatic Comments: On Coumadin Allergic/Immunologic Allergic/Immunologic: Denies urticaria Patient History Medical History Atrial fibrillation (Chronic) CAD (coronary artery disease) (Chronic) Interstitial lung disease (Chronic) Melanoma (Resolved) Pacemaker (Chronic) 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) TIA (transient ischemic attack) (Resolved) Surgical History H/O: section (Resolved) Hx of CABG (Resolved) S/P appendectomy (Resolved) S/P hysterectomy (Resolved) S/P knee replacement (Resolved) Social History marital status: number of children: 2 household members: spouse lives independently: Yes education level: college occupational status: other (retired) Smoking Status: Never smoker alcohol intake: current substance use type: does not use Smoking Status: Never smoker alcohol intake frequency: holidays/special occasions only Substance Use Type: does not use Exam Initial Vital Signs Initial Vital Signs: Vital Signs Pulse Rate 58 L 05/29/20 22:25 Respiratory Rate 16 05/29/20 22:25 Blood Pressure 161/78 H 05/29/20 22:25 Pulse Oximetry 98 05/29/20 22:25 Const General: cooperative, comfortable, well developed and well groomed Limitations: mental status not altered HENMT Head: abrasion (Right occipital), No hematoma and No palpable skull fracture Ears: hearing grossly normal bilaterally Nose: external nose normal Mouth: oral mucosae normal Eyes EOM: EOM intact bilaterally Other: Contusion under left eye Chest Chest: No crepitus and No tenderness Resp Effort & Inspection: normal respiratory effort Auscultation: clear to auscultation bilaterally Cardio Rate: bradycardic Rhythm: abnormal rhythm Pulses: radial pulses present GI Inspection: non-distended Palpation: soft Back/Spine/Pelvis Cervical Spine: No collar present and No cervical spinal tenderness Skin Other: Patient with a abrasion to the right occipital portion of the scalp. Neuro General: patient alert, patient awake and patient oriented x3 Cognition: normal cognition Speech: speech normal Sensory Exam: no sensory deficits noted Extrem General: capillary refill normal Psych Appearance: grossly normal and well kempt Scores GCS [place] coma scale eye opening: Spontaneous [place] coma scale verbal response: Orientated [place] coma scale motor response: Obey commands Beryl coma scale total score: 15 Nexus Score for C-Spine Focal Neurologic deficit present: No Midline spinal tenderness present: No Altered level of conciousness present: No Intoxication present: No Distracting Injury Present: No Nexus Criteria for C-spine: 0 Course Orders Ordered: ED Orders 05/29/20 22:20 Complete Blood Count AUTO DIFF Stat Comprehensive Metabolic Panel Stat Lipase Stat Partial Thromboplastin Time Stat Prothrombin Time INR Stat Troponin & CK Cardiac Panel Stat 05/29/20 22:27 EKG-12 Lead Stat 05/29/20 22:32 CT head/brain wo con Stat 05/29/20 22:33 CT facial bones wo con Stat 05/29/20 23:38 COVID19 Stat Nicardipine HCl 25 mg/ Sodium (Chloride) 250 mls @ 50 mls/hr IV TITRATE ROSELIA; Protocol Discontinued Medications Sodium Chloride (Normal Saline 0.9%) 1,000 mls @ 1,000 mls/hr IV BOLUS ONE Stop: 05/29/20 23:30 Last Admin: 05/29/20 22:57 Dose: 1,000 mls/hr Documented by: ARIN Phytonadione 10 mg/ Dextrose 51 mls @ 102 mls/hr IV NOW ONE Stop: 05/29/20 23:37 Last Admin: 05/29/20 23:56 Dose: 102 mls/hr Documented by: ARIN Prothrombin Complex Concent ( Human) 2,000 unit/Miscellaneous 80 mls @ 502.56 mls/hr IV NOW ONE; Protocol Stop: 05/29/20 23:47 Morphine Sulfate (Morphine) 2 mg IV NOW ONE Stop: 05/29/20 23:46 Ondansetron HCl (Zofran) 4 mg IV NOW ONE Stop: 05/29/20 22:58 Last Admin: 05/29/20 23:00 Dose: 4 mg Documented by: ARIN Ondansetron HCl (Zofran) 4 mg IV NOW ONE Stop: 05/30/20 00:00 Vital Signs Vital signs: Vital Signs - 8 hr 05/29/20 22:25 05/29/20 22:30 05/29/20 23:00 Pulse Rate 58 L 60 81 Respiratory Rate 16 15 15 Blood Pressure 161/78 H 142/71 H 174/73 H Pulse Oximetry 98 98 100 MDM - Fall Lab Data Attestation: I reviewed the patient's lab results. Result diagrams: 05/29/20 22:20 05/29/20 22:20 Labs: Lab Results 05/29/20 05/29/20 05/29/20 Range/Units 22:20 22:20 22:20 WBC 7.3 (4.5-11.0) X10^3/uL RBC 4.56 (4.0-5.2) X10^6/uL Hgb 13.2 (12.0-16.0) g/dL Hct 40.9 (36-46) % MCV 89.6 (80-100) fL MCH 29.0 (26-34) PG MCHC 32.4 (30-36) % RDW 14.5 (11.6-14.8) % Plt Count 188 (150-400) X10^3/uL Neut % (Auto) 73.9 (50-75) % Lymph % (Auto) 19.2 L (25-40) % Yates % (Auto) 5.7 (3-14) % Eos % (Auto) 0.7 L (2-4) % Baso % (Auto) 0.5 (0-2) % Neut # (Auto) 5400 (5443-9025) /uL Lymph # (Auto) 1400 (3637-1031) /uL Yates # (Auto) 400 (0-900) /uL Eos # (Auto) 0 (0-450) /uL Baso # (Auto) 0 (0-100) /uL PT 36.2 H (10.1-12.7) SECONDS INR 3.2 H (0.9-1.3) APTT 34 D (26.4-36.2) SECONDS Sodium 138 (137-145) mmol/L Potassium 4.1 (3.4-5.1) mmol/L Chloride 100 (98-107) mmol/L Carbon Dioxide 33 H (22-32) mmol/L BUN 33 H (7-17) mg/dL Creatinine 0.99 (0.52-1.04) mg/dL Estimated GFR 53.6 L (>60) mL/min BUN/Creatinine Ratio 33.3 H (6-22) Glucose 141 H (80-110) mg/dL Calcium 9.0 (8.4-10.2) mg/dL Total Bilirubin 0.6 (0.2-1.3) mg/dL AST 31 (14-36) IU/L ALT 16 (<35) IU/L Alkaline Phosphatase 55 (38-126) U/L Total Creatine Kinase (30-135) U/L CK-MB (CK-2) CK-MB (CK-2) Rel Index Troponin I (0.01-0.034) ng/mL Total Protein 8.0 (6.3-8.2) g/dL Albumin 4.2 (3.5-5.0) g/dL Globulin 3.8 (1.7-4.1) g/dL Albumin/Globulin Ratio 1.1 (1.0-2.8) Lipase (23-300) U/L 11/15/20 Range/Units 22:20 WBC (4.5-11.0) X10^3/uL RBC (4.0-5.2) X10^6/uL Hgb (12.0-16.0) g/dL Hct (36-46) % MCV (80-100) fL MCH (26-34) PG MCHC (30-36) % RDW (11.6-14.8) % Plt Count (150-400) X10^3/uL Neut % (Auto) (50-75) % Lymph % (Auto) (25-40) % Yates % (Auto) (3-14) % Eos % (Auto) (2-4) % Baso % (Auto) (0-2) % Neut # (Auto) (4855-4877) /uL Lymph # (Auto) (9223-6872) /uL Yates # (Auto) (0-900) /uL Eos # (Auto) (0-450) /uL Baso # (Auto) (0-100) /uL PT (10.1-12.7) SECONDS INR (0.9-1.3) APTT (26.4-36.2) SECONDS Sodium (137-145) mmol/L Potassium (3.4-5.1) mmol/L Chloride (98-107) mmol/L Carbon Dioxide (22-32) mmol/L BUN (7-17) mg/dL Creatinine (0.52-1.04) mg/dL Estimated GFR (>60) mL/min BUN/Creatinine Ratio (6-22) Glucose (80-110) mg/dL Calcium (8.4-10.2) mg/dL Total Bilirubin (0.2-1.3) mg/dL AST (14-36) IU/L ALT (<35) IU/L Alkaline Phosphatase (38-126) U/L Total Creatine Kinase 41 (30-135) U/L CK-MB (CK-2) TNP CK-MB (CK-2) Rel Index TNP Troponin I < 0.012 (0.01-0.034) ng/mL Total Protein (6.3-8.2) g/dL Albumin (3.5-5.0) g/dL Globulin (1.7-4.1) g/dL Albumin/Globulin Ratio (1.0-2.8) Lipase 332 H (23-300) U/L Imaging Data CT scan - head: Radiologist's Impression: Bilateral subdural hematomas right greater than left Is scattered subarachnoid hemorrhage bilateral frontal lobes and bilateral temporal lobes. Midline shift to the left. Nondistressed right occipital bone fracture Nonspecific periventricular and white matter disease CT maxillofacial: Radiologist's Impression: Normal CT of the maxillofacial bones ECG Data Attestation: I personally reviewed and interpreted this ECG as follows: Prior ECG tracings: available for review Interpretation: Atrial fibrillation Ventricular rate of 57 Normal axis Normal QRS Nonspecific ST T wave changes MDM Narrative Medical decision making narrative: Patient did have what appears to be a syncopal episode. She is in atrial fibrillation and review of her prior EKG shows that this is not new. The contusion on the back of her head needs no intervention. She has no cervical spine tenderness. CT scan of the head shows subarachnoid and subdural hematomas. She is on Coumadin with an INR greater than 3. She was given Kcentra and 10 mg of vitamin K. is also started on nicardipine to keep a systolic blood pressure less than 140. I did discuss the case with Dr. Butler with the [facility] Emergency Department who asked that the patient be placed in a cervical collar. I did discuss the injury with her and her family who are at bedside. Plan of these transfer the patient [facility] by air. Patient is currently stable for transfer. Critical Care Time Critical Care Time Critical Care Time: Yes Total Critical Care Time: 50 Attestation: The high probability of a clinically significant, sudden or life threatening deterioration of the neurologic system(s) required my full and direct attention, intervention and personal management. The aggregate critical care time was 50 minutes. This time is in addition to time spent performing reported procedures but includes the following: [x] Data Review and interpretation [x] Patient assessment and monitoring of vital signs [x] Documentation [x] Medication orders and management Discharge Plan Departure Patient Disposition: [facility] Clinical Impression: Bilateral subdural hematomas, Subarachnoid hemorrhage, Abrasion of scalp Atrial fibrillation Qualifiers: Atrial fibrillation type: unspecified Qualified Code(s): I48.91 - Unspecified atrial fibrillation Fall Qualifiers: Encounter type: initial encounter Qualified Code(s): W19.XXXA - Unspecified fall, initial encounter Closed fracture of occipital bone Qualifiers: Encounter type: initial encounter Laterality: right Prescriptions: No Action prednisone 2.5 mg tablet 2.5 mg PO BID RF: 0 albuterol sulfate 90 mcg/actuation HFA aerosol inhaler 2 puff INHALATION Q6H PRN (Reason: shortness of breath or wheezing) Qty: 6.7 RF: 0 (DME) Disabled Parking Qty: 1 RF: 0 carvedilol 12.5 mg tablet 12.5 mg PO BID Qty: 180 RF: 3 atorvastatin 20 mg tablet 20 mg PO QPM Qty: 90 RF: 3 potassium chloride 10 mEq tablet extended release 10 meq PO DAILY Qty: 90 RF: 3 levothyroxine 50 mcg tablet 50 mcg PO DAILY Qty: 90 RF: 1 losartan 50 mg tablet 50 mg PO QPM Qty: 90 RF: 1 furosemide 20 mg tablet 20 mg PO DAILY Qty: 90 RF: 1 gabapentin 300 mg capsule 300 mg PO QPM Qty: 90 RF: 1 amlodipine 5 mg tablet 5 mg PO QPM Qty: 90 RF: 1 mycophenolate mofetil 500 mg tablet 1,000 mg PO BID RF: 0 nitroglycerin 0.4 mg tablet, sublingual 0.4 mg SL Q5-15M PRN (Reason: Chest Pain) RF: 0 warfarin 4 mg tablet 4 mg PO QPM RF: 0 aspirin 325 mg tablet 325 mg PO DAILY RF: 0 multivitamin Tablet 1 tab PO DAILY RF: 0 omega 2-pwj-gzg-fish oil [Fish Oil] 1,000 mg (120 mg-180 mg) Capsule 1 cap PO DAILY RF: 0 calcium citrate-vitamin D3 [Citracal Regular] 250 mg calcium- 200 unit Tablet 1 tab PO DAILY RF: 0 krill oil 1 cap PO QPM RF: 0 acetaminophen 325 mg Tablet 650 mg PO Q6HR PRN (Reason: As Needed For Fever/Mild Pain) Qty: 30 RF: 0 Referrals: Nataly Wilson DO [Primary Care Provider] -
[2020-05-29] MEDS: PHYTONADIONE (VIT K1) 10 MG in DEXTROSE 5 % IN WATER 50 ML 102 ML IV (23:56)
[2020-05-29 23:59] VITALS: BP 176/72; PULSE 70; O2SAT 98
[2020-05-30] VITALS (8 sets, daily range): BP systolic 128–161; BP diastolic 58–85; PULSE 56–84; RESP 12–18; TEMP 36.2; O2SAT 97–99
[2020-05-30] MEDS: ONDANSETRON 4 MG/2 ML INJ IV (00:05)
[2020-05-30] MEDS: MORPHINE 2 MG/ML INJ IV (00:09)
[2020-05-30] MEDS: NICARDIPINE 25 MG in SODIUM CHLORIDE 0.9% 240 ML 50 ML IV (00:12)
[2020-05-30 00:35] LABS: COVID19 -Nasal RAPID Negative (Negative)
[2020-05-30] MEDS: PROTHROMBIN CPLX(PCC)4FACT 2,000 UNIT in ISOOSMOTIC VEHICLE 0 ML 502.56 ML IV (00:35)
--- NOTE | 2020-05-30 01:13 | PC.NURSE ---
Addendum entered by Rossy Cabral R.N. 05/30/20 20:18: pts on 3L NC at baseline; C-collar was left on pt for flight transport per protocol. Original Note: Pt transferred with C-collar in place and Nicardipine gtt running at 5mg/hr
== END 2020-05-30 01:10 | disposition short-term general hospital (02) ==
PROVIDERS: Emergency Provider Emergency Medicine; Family Provider Family Medicine; PCP Family Medicine
DX: S06.6X9A Traumatic subarachnoid hemorrhage with loss of consciousness of unspecified duration, initial encounter (principal); S02.119A Unspecified fracture of occiput, initial encounter for closed fracture; S00.01XA Abrasion of scalp, initial encounter; W19.XXXA Unspecified fall, initial encounter; I48.91 Unspecified atrial fibrillation; Z79.01 Long term (current) use of anticoagulants; R11.0 Nausea; R51.9 Headache, unspecified; R07.9 Chest pain, unspecified
CPT/HCPCS: 36415; 70450; 70486; 80053; 82550; 83690; 84484; 85025; 85610; 85730; 87635; 93005; 96361; 96365; 96367; 96368; 96375; 96376; 99285; 99291; C9132; G0390; J2270; J2405; J3430